=== PATIENT | male | born 1940 | race Two or more races ===

== ENCOUNTER 2017-01-15 14:04 | Inpatient (IN) | payer MEDICARE, OTHER ==
[~2017-01-15] VITALS: Ht 167.6 cm; Wt 104.2 kg
[~2017-01-15 14:04] MED LIST: MIDAZOLAM 1 MG/ML, 5ML ONE; PROPOFOL 100 ML IV ONE; SUCCINYLCHOLINE 20 MG/ML, 10ML ONE
[2017-01-15] MEDS ORDERED: ALBUTEROL/IPRATROPIUM 2.5MG/0.5MG, 3 ML ONE ×2 (14:53→16:29)
[2017-01-15] MEDS ORDERED: ALBUTEROL/IPRATROPIUM 2.5MG/0.5MG, 3 ML NPPB ONE (15:00)
[2017-01-15] MEDS ORDERED: ACETAMINOPHEN 500 MG TABLET PO ONE (15:00)
[2017-01-15] MEDS ORDERED: SODIUM CHLORIDE 0.9% 1,000ML IVBOLUS ONE (15:00)
[2017-01-15] MEDS ORDERED: methylPREDNISolone SOD SUCC 125 MG/2 ML IVPush ONE (15:00)
[2017-01-15] MEDS ORDERED: SODIUM CHLORIDE FLUSH 10ML SYR IVF ONE (15:00)
[2017-01-15] MEDS ORDERED: SIMV40TA3 PO (15:06)
[2017-01-15] MEDS ORDERED: METF500T4 PO (15:06)
[2017-01-15] MEDS ORDERED: TAMS0.4C2 PO (15:06)
[2017-01-15] MEDS ORDERED: OMEP-110 PO (15:06)
[2017-01-15] MEDS ORDERED: ACETAMINOPHEN 500 MG TABLET ONE (15:09)
[2017-01-15] MEDS ORDERED: methylPREDNISolone SOD SUCC 125 MG/2 ML ONE (15:09)
[2017-01-15 15:21] LABS: BASOPHILS # (AUTO) 0.02 x10^3/uL (0-0.1); BASOPHILS % (AUTO) 0 % (0-1); EOSINOPHILS % (AUTO) 0 % (1-7); LYMPHOCYTES # (AUTO) 0.69 x10^3/uL (1-3.4); LYMPHOCYTES % (AUTO) 7 % (22-44); MD NO; MEAN CORPUSCULAR HEMOGLOBIN 30.7 pg (27.5-34.5); MEAN CORPUSCULAR HGB CONC 32.6 g/dL (33.2-36.2); MEAN PLATELET VOLUME 7.3 fL (7.4-10.4); MONOCYTES # (AUTO) 1.25 x10^3/uL (0.2-0.8); MONOCYTES % (AUTO) 13 % (2-9); NEUTROPHILS # (AUTO) 7.76 x10^3/uL (1.8-6.8); NEUTROPHILS % (AUTO) 80 % (42-75); PLATELET COUNT 167 x10^3/uL (130-400)
[2017-01-15 15:29] LABS: ALANINE AMINOTRANSFERASE 24 U/L (12-78); ALBUMIN 3.1 g/dL (3.4-5.0); ANION GAP 5 mmol/L (5-15); CALCIUM 8.6 mg/dL (8.5-10.1); CHLORIDE 92 mmol/L (98-107)
[2017-01-15 15:32] LABS: ALKALINE PHOSPHATASE 87 U/L (45-117); BILIRUBIN,TOTAL 0.6 mg/dL (0.2-1.0); CREATININE 1.05 mg/dL (0.7-1.3); TOTAL PROTEIN 7.8 g/dL (6.4-8.2)
[2017-01-15 15:34] LABS: RAPID INFLUENZA A POSITIVE (Negative); RAPID INFLUENZA B Negative (Negative)
[2017-01-15] MEDS ORDERED: OSELTAMIVIR 75 MG CAPSULE PO ONE (16:00)
[2017-01-15] MEDS ORDERED: SODIUM CHLORIDE 0.9% 1,000 ML IV SCH (16:18)
[2017-01-15] MEDS ORDERED: POLYETHYLENE GLYCOL 17 GM PACKET PO PRN (16:30)
[2017-01-15] MEDS ORDERED: BISACODYL 10 MG SUPP PR PRN ×2 (16:30→20:30)
[2017-01-15] MEDS ORDERED: DOCUSATE 100 MG CAPSULE PO PRN (16:30)
[2017-01-15] MEDS ORDERED: LABETALOL 5MG/ML, 20ML IVPush PRN (16:30)
[2017-01-15] MEDS ORDERED: morphine SULFATE 10 MG/ML, 1ML IVPush PRN (16:30)
[2017-01-15] MEDS ORDERED: GLUCAGON 1 MG IM PRN (17:00)
[2017-01-15] MEDS ORDERED: DEXTROSE 4 GM TAB.CHEW PO PRN (17:00)
[2017-01-15] MEDS ORDERED: DEXTROSE 50%, 50ML SYRINGE IVPush PRN (17:00)
[2017-01-15 18:45] VITALS: BP 147/66
[2017-01-15] MEDS: methylPREDNISolone SOD SUCC 125 MG/2 ML IVPush SCH (19:12)
[2017-01-15] MEDS: SODIUM CHLORIDE FLUSH 10ML SYR IVF SCH (19:33)
[2017-01-15] MEDS ORDERED: PHARMACY MAY ADJ FOR RENAL FX MC SCH (20:30)
[2017-01-15] MEDS ORDERED: LACTULOSE 20 GM/30 ML UDC NG PRN (20:30)
[2017-01-15] MEDS ORDERED: SENNA/DOCUSATE TABLET NG PRN (20:30)
[2017-01-15] MEDS ORDERED: SENNOSIDES 8.8 MG/5 ML ORAL SOL NG PRN (20:30)
[2017-01-15] MEDS ORDERED: LIDOCAINE-MPF 1%, 2ML ENDO PRN (20:30)
[2017-01-15] MEDS ORDERED: OSELTAMIVIR 75 MG CAPSULE PO SCH (21:00)
[2017-01-15] MEDS ORDERED: SODIUM CHLORIDE 0.9%, 500ML IVBOLUS ONE (21:00)
[2017-01-15] MEDS ORDERED: CEFTRIAXONE PMX 2GM/50ML 50 ML IV SCH (21:00)
[2017-01-15 21:22] LABS: TROPONIN I < 0.015 ng/mL (0.000-0.045)
[2017-01-15] MEDS: CEFTRIAXONE 2 GM in DEXTROSE 5% 50 ML IV SCH (21:55)
[2017-01-15] MEDS: FAMOTIDINE 20 MG/2 ML IV SCH (21:57)
[2017-01-15] MEDS: AZITHROMYCIN 500 MG in SODIUM CHLORIDE 0.9% 250 ML IV SCH (21:58)
[2017-01-15] MEDS: SIMVASTATIN 40 MG TABLET PO SCH ×2 (21:58→22:05)
[2017-01-15] MEDS: ENOXAPARIN 40 MG/0.4 ML SQ SCH (21:58)
[2017-01-15] MEDS: INSULIN ASPART 100 UNITS/ML, PEN SQ-INSULIN SCH (22:17)
[2017-01-15] MEDS: PROPOFOL 100 ML IV PRN (22:54)
[2017-01-15] MEDS: ALBUTEROL/IPRATROPIUM 2.5MG/0.5MG, 3 ML INLINE SCH (23:20)
[2017-01-16] MEDS: methylPREDNISolone SOD SUCC 125 MG/2 ML IVPush SCH ×5 (00:05→22:35)
[2017-01-16] MEDS: PROPOFOL 100 ML IV PRN ×5 (01:25→22:36)
[2017-01-16 02:49] LABS: MEAN CORPUSCULAR HEMOGLOBIN 30.9 pg (27.5-34.5); MEAN CORPUSCULAR HGB CONC 33.3 g/dL (33.2-36.2); MEAN CORPUSCULAR VOLUME 92.8 fL (81-97); MEAN PLATELET VOLUME 7.2 fL (7.4-10.4); PLATELET COUNT 175 x10^3/uL (130-400); RED BLOOD COUNT 5.56 x10^6/uL (4.38-5.82); RED CELL DISTRIBUTION WIDTH 14.1 % (9.4-14.8)
[2017-01-16] MEDS: ALBUTEROL/IPRATROPIUM 2.5MG/0.5MG, 3 ML INLINE SCH ×7 (02:50→22:45)
[2017-01-16 03:02] LABS: ALANINE AMINOTRANSFERASE 26 U/L (12-78); ALBUMIN 2.7 g/dL (3.4-5.0); ANION GAP 10 mmol/L (5-15); CALCIUM 8.3 mg/dL (8.5-10.1); CHLORIDE 101 mmol/L (98-107)
[2017-01-16 03:05] LABS: ALKALINE PHOSPHATASE 79 U/L (45-117); BILIRUBIN,TOTAL 0.5 mg/dL (0.2-1.0); CREATININE 0.76 mg/dL (0.7-1.3); TOTAL PROTEIN 7.3 g/dL (6.4-8.2); TROPONIN I < 0.015 ng/mL (0.000-0.045)
[2017-01-16 03:16] LABS: BASOPHILS % (AUTO) 0 % (0-1); EOSINOPHILS % (AUTO) 0 % (1-7); LYMPHOCYTES # (AUTO) 0.69 x10^3/uL (1-3.4); LYMPHOCYTES % (AUTO) 7 % (22-44); MD SCAN; MONOCYTES # (AUTO) 0.38 x10^3/uL (0.2-0.8); MONOCYTES % (AUTO) 4 % (2-9); NEUTROPHILS # (AUTO) 8.46 x10^3/uL (1.8-6.8); NEUTROPHILS % (AUTO) 89 % (42-75)
[2017-01-16] MEDS: OSELTAMIVIR 75 MG CAPSULE PO SCH ×3 (04:56→21:10)
[2017-01-16 05:34] VITALS: BP 154/77
[2017-01-16] MEDS: INSULIN ASPART 100 UNITS/ML, PEN SQ-INSULIN SCH ×4 (07:00→21:23)
[2017-01-16] MEDS ORDERED: MAGNESIUM SULFATE PMX 4GM/100M 100 ML IV ONE (08:00)
[2017-01-16] MEDS: TAMSULOSIN 0.4 MG CAP.ER.24H PO SCH (09:37)
[2017-01-16] MEDS: SODIUM CHLORIDE FLUSH 10ML SYR IVF SCH ×2 (09:38→21:11)
[2017-01-16] MEDS: FAMOTIDINE 20 MG/2 ML IV SCH ×2 (09:38→21:10)
[2017-01-16] MEDS: CEFTRIAXONE 2 GM in DEXTROSE 5% 50 ML IV SCH (21:10)
[2017-01-16] MEDS: ENOXAPARIN 40 MG/0.4 ML SQ SCH (21:10)
[2017-01-16] MEDS: AZITHROMYCIN 500 MG in SODIUM CHLORIDE 0.9% 250 ML IV SCH (21:10)
[2017-01-16] MEDS: SIMVASTATIN 40 MG TABLET PO SCH (21:10)
[2017-01-17] MEDS: PROPOFOL 100 ML IV PRN ×7 (01:16→21:06)
[2017-01-17] MEDS: ALBUTEROL/IPRATROPIUM 2.5MG/0.5MG, 3 ML INLINE SCH ×6 (02:45→22:40)
[2017-01-17 04:00] VITALS: BP 113/55
[2017-01-17 04:14] LABS: MEAN CORPUSCULAR HEMOGLOBIN 30.6 pg (27.5-34.5); MEAN CORPUSCULAR HGB CONC 32.8 g/dL (33.2-36.2); MEAN CORPUSCULAR VOLUME 93.4 fL (81-97); MEAN PLATELET VOLUME 7.6 fL (7.4-10.4); PLATELET COUNT 188 x10^3/uL (130-400); RED BLOOD COUNT 5.39 x10^6/uL (4.38-5.82); RED CELL DISTRIBUTION WIDTH 14.1 % (9.4-14.8)
[2017-01-17 04:23] LABS: ANION GAP 6 mmol/L (5-15); CHLORIDE 102 mmol/L (98-107); CREATININE 0.79 mg/dL (0.7-1.3)
[2017-01-17 04:27] LABS: MD YES
[2017-01-17 04:29] LABS: <PLATELET ESTIMATE> ADEQUATE; <PLT MORPHOLOGY> NORMAL PLT MORPH; <RBC MORPHOLOGY> NORMAL; BAND#(MANUAL) 2.87 x10^3/uL; BANDS%(MANUAL) 15 % (0-7); LYMPH#(MANUAL) 0.96 x10^3/uL (1-3.4); LYMPHS% (MANUAL) 5 % (22-44); MONOS#(MANUAL) 0.38 x10^3/uL (0.3-2.7); MONOS% (MANUAL) 2 % (2-9); SEGS% (MANUAL) 78 % (42-75)
[2017-01-17] MEDS: methylPREDNISolone SOD SUCC 125 MG/2 ML IVPush SCH ×4 (04:51→22:21)
[2017-01-17] MEDS: INSULIN ASPART 100 UNITS/ML, PEN SQ-INSULIN SCH ×4 (04:53→21:05)
[2017-01-17] MEDS: SODIUM CHLORIDE FLUSH 10ML SYR IVF SCH ×2 (08:13→20:50)
[2017-01-17] MEDS: OSELTAMIVIR 75 MG CAPSULE PO SCH ×2 (08:13→20:50)
[2017-01-17] MEDS: FAMOTIDINE 20 MG/2 ML IV SCH ×2 (08:13→20:50)
[2017-01-17] MEDS ORDERED: FUROSEMIDE 40 MG/4 ML ONE (10:48)
[2017-01-17] MEDS: RISPERIDONE 1 MG/ML ORAL SOLN NG SCH ×2 (10:56→20:50)
[2017-01-17] MEDS: TAMSULOSIN 0.4 MG CAP.ER.24H PO SCH (10:56)
[2017-01-17] MEDS ORDERED: FUROSEMIDE 40 MG/4 ML IV ONE (11:00)
[2017-01-17] MEDS: SIMVASTATIN 40 MG TABLET PO SCH (20:50)
[2017-01-17] MEDS: ENOXAPARIN 40 MG/0.4 ML SQ SCH (20:51)
[2017-01-17] MEDS: CEFTRIAXONE 2 GM in DEXTROSE 5% 50 ML IV SCH (20:51)
[2017-01-17] MEDS: AZITHROMYCIN 500 MG in SODIUM CHLORIDE 0.9% 250 ML IV SCH (20:51)
[2017-01-18] MEDS: ALBUTEROL/IPRATROPIUM 2.5MG/0.5MG, 3 ML INLINE SCH ×6 (02:35→23:00)
[2017-01-18] MEDS: PROPOFOL 100 ML IV PRN ×7 (02:53→23:16)
[2017-01-18 04:00] VITALS: BP 104/50
[2017-01-18] MEDS: methylPREDNISolone SOD SUCC 125 MG/2 ML IVPush SCH ×4 (04:16→22:38)
[2017-01-18 04:56] LABS: BASOPHILS # (AUTO) 0.01 x10^3/uL (0-0.1); BASOPHILS % (AUTO) 0 % (0-1); EOSINOPHILS % (AUTO) 0 % (1-7); LYMPHOCYTES # (AUTO) 0.54 x10^3/uL (1-3.4); LYMPHOCYTES % (AUTO) 3 % (22-44); MD NO; MEAN CORPUSCULAR HEMOGLOBIN 30.9 pg (27.5-34.5); MEAN CORPUSCULAR HGB CONC 32.9 g/dL (33.2-36.2); MEAN CORPUSCULAR VOLUME 93.9 fL (81-97); MEAN PLATELET VOLUME 7.7 fL (7.4-10.4); MONOCYTES # (AUTO) 0.57 x10^3/uL (0.2-0.8); MONOCYTES % (AUTO) 3 % (2-9); NEUTROPHILS # (AUTO) 16.79 x10^3/uL (1.8-6.8); NEUTROPHILS % (AUTO) 94 % (42-75); PLATELET COUNT 197 x10^3/uL (130-400); RED BLOOD COUNT 5.48 x10^6/uL (4.38-5.82); RED CELL DISTRIBUTION WIDTH 14.1 % (9.4-14.8)
[2017-01-18 05:03] LABS: ANION GAP 7 mmol/L (5-15); CALCIUM 8.4 mg/dL (8.5-10.1); CHLORIDE 102 mmol/L (98-107); CREATININE 0.83 mg/dL (0.7-1.3)
[2017-01-18 05:04] LABS: TRIGLYCERIDES 117 mg/dL (50-200)
[2017-01-18] MEDS: INSULIN ASPART 100 UNITS/ML, PEN SQ-INSULIN SCH ×3 (05:57→17:13)
[2017-01-18] MEDS ORDERED: FUROSEMIDE 40 MG/4 ML IV ONE (09:00)
[2017-01-18] MEDS: RISPERIDONE 1 MG/ML ORAL SOLN NG SCH ×2 (09:22→21:21)
[2017-01-18] MEDS: SODIUM CHLORIDE FLUSH 10ML SYR IVF SCH ×2 (09:22→21:21)
[2017-01-18] MEDS: FAMOTIDINE 20 MG/2 ML IV SCH ×2 (09:22→21:20)
[2017-01-18] MEDS: OSELTAMIVIR 75 MG CAPSULE PO SCH ×2 (09:22→21:22)
[2017-01-18] MEDS: TAMSULOSIN 0.4 MG CAP.ER.24H PO SCH (09:22)
[2017-01-18] MEDS: SIMVASTATIN 40 MG TABLET PO SCH (21:21)
[2017-01-18] MEDS: ENOXAPARIN 40 MG/0.4 ML SQ SCH (21:21)
[2017-01-18] MEDS: CEFTRIAXONE PMX 1GM/50ML 50 ML IV SCH (21:21)
[2017-01-19] MEDS: INSULIN ASPART 100 UNITS/ML, PEN SQ-INSULIN SCH ×4 (00:12→17:17)
[2017-01-19] MEDS: ALBUTEROL/IPRATROPIUM 2.5MG/0.5MG, 3 ML INLINE SCH ×6 (02:15→22:28)
[2017-01-19] MEDS: PROPOFOL 100 ML IV PRN ×7 (02:24→22:46)
[2017-01-19 04:00] VITALS: BP 118/57
[2017-01-19 04:31] LABS: FIO2 50 %
[2017-01-19 04:33] LABS: BASOPHILS # (AUTO) 0.08 x10^3/uL (0-0.1); BASOPHILS % (AUTO) 1 % (0-1); EOSINOPHILS % (AUTO) 0 % (1-7); LYMPHOCYTES # (AUTO) 0.53 x10^3/uL (1-3.4); LYMPHOCYTES % (AUTO) 4 % (22-44); MD NO; MEAN CORPUSCULAR HEMOGLOBIN 30.9 pg (27.5-34.5); MEAN CORPUSCULAR HGB CONC 32.8 g/dL (33.2-36.2); MEAN CORPUSCULAR VOLUME 94.2 fL (81-97); MEAN PLATELET VOLUME 7.6 fL (7.4-10.4); MONOCYTES # (AUTO) 0.84 x10^3/uL (0.2-0.8); MONOCYTES % (AUTO) 6 % (2-9); NEUTROPHILS # (AUTO) 11.64 x10^3/uL (1.8-6.8); NEUTROPHILS % (AUTO) 89 % (42-75); PLATELET COUNT 193 x10^3/uL (130-400); RED BLOOD COUNT 5.34 x10^6/uL (4.38-5.82); RED CELL DISTRIBUTION WIDTH 14.1 % (9.4-14.8)
[2017-01-19] MEDS: methylPREDNISolone SOD SUCC 125 MG/2 ML IVPush SCH ×4 (04:35→22:46)
[2017-01-19 04:43] LABS: ANION GAP 9 mmol/L (5-15); CALCIUM 8.6 mg/dL (8.5-10.1); CHLORIDE 100 mmol/L (98-107); CREATININE 0.91 mg/dL (0.7-1.3)
[2017-01-19] MEDS: SODIUM CHLORIDE FLUSH 10ML SYR IVF SCH ×2 (09:19→21:15)
[2017-01-19] MEDS: OSELTAMIVIR 75 MG CAPSULE PO SCH ×2 (09:19→21:15)
[2017-01-19] MEDS: RISPERIDONE 1 MG/ML ORAL SOLN NG SCH ×2 (09:19→21:15)
[2017-01-19] MEDS: TAMSULOSIN 0.4 MG CAP.ER.24H PO SCH (09:19)
[2017-01-19] MEDS: FAMOTIDINE 20 MG/2 ML IV SCH ×2 (09:19→21:15)
[2017-01-19] MEDS: CEFTRIAXONE PMX 1GM/50ML 50 ML IV SCH (21:16)
[2017-01-19] MEDS: ENOXAPARIN 40 MG/0.4 ML SQ SCH (21:16)
[2017-01-19] MEDS: SIMVASTATIN 40 MG TABLET PO SCH (21:16)
[2017-01-20] MEDS: INSULIN ASPART 100 UNITS/ML, PEN SQ-INSULIN SCH ×4 (00:34→17:12)
[2017-01-20] MEDS: PROPOFOL 100 ML IV PRN ×6 (00:55→20:44)
[2017-01-20] MEDS: ALBUTEROL/IPRATROPIUM 2.5MG/0.5MG, 3 ML INLINE SCH ×6 (02:40→22:20)
[2017-01-20] MEDS: methylPREDNISolone SOD SUCC 125 MG/2 ML IVPush SCH ×4 (04:13→23:13)
[2017-01-20 04:48] LABS: BASOPHILS # (AUTO) 0.02 x10^3/uL (0-0.1); BASOPHILS % (AUTO) 0 % (0-1); EOSINOPHILS % (AUTO) 0 % (1-7); LYMPHOCYTES # (AUTO) 0.78 x10^3/uL (1-3.4); LYMPHOCYTES % (AUTO) 5 % (22-44); MD NO; MEAN CORPUSCULAR HEMOGLOBIN 30.5 pg (27.5-34.5); MEAN CORPUSCULAR HGB CONC 31.8 g/dL (33.2-36.2); MEAN CORPUSCULAR VOLUME 95.8 fL (81-97); MEAN PLATELET VOLUME 7.5 fL (7.4-10.4); MONOCYTES # (AUTO) 1.05 x10^3/uL (0.2-0.8); MONOCYTES % (AUTO) 7 % (2-9); NEUTROPHILS # (AUTO) 13.72 x10^3/uL (1.8-6.8); NEUTROPHILS % (AUTO) 88 % (42-75); PLATELET COUNT 211 x10^3/uL (130-400); RED BLOOD COUNT 5.57 x10^6/uL (4.38-5.82)
[2017-01-20 05:09] LABS: CHLORIDE 100 mmol/L (98-107)
[2017-01-20 05:15] LABS: ANION GAP 8 mmol/L (5-15); CALCIUM 8.8 mg/dL (8.5-10.1); CREATININE 0.86 mg/dL (0.7-1.3)
[2017-01-20] MEDS: SODIUM CHLORIDE FLUSH 10ML SYR IVF SCH ×2 (08:31→20:45)
[2017-01-20] MEDS: RISPERIDONE 1 MG/ML ORAL SOLN NG SCH ×2 (08:31→20:46)
[2017-01-20] MEDS: FAMOTIDINE 20 MG/2 ML IV SCH ×2 (08:31→20:45)
[2017-01-20] MEDS: OSELTAMIVIR 75 MG CAPSULE PO SCH ×2 (08:32→20:46)
[2017-01-20] MEDS: TAMSULOSIN 0.4 MG CAP.ER.24H PO SCH (08:32)
[2017-01-20] MEDS ORDERED: FUROSEMIDE 40 MG/4 ML IV ONE (10:00)
[2017-01-20] MEDS: FUROSEMIDE 40 MG/4 ML IV SCH (17:12)
[2017-01-20] MEDS: CEFTRIAXONE PMX 1GM/50ML 50 ML IV SCH (20:45)
[2017-01-20] MEDS: SIMVASTATIN 40 MG TABLET PO SCH (20:46)
[2017-01-20] MEDS: ENOXAPARIN 40 MG/0.4 ML SQ SCH (20:46)
[2017-01-21] MEDS: INSULIN ASPART 100 UNITS/ML, PEN SQ-INSULIN SCH ×5 (00:18→22:50)
[2017-01-21] MEDS: PROPOFOL 100 ML IV PRN ×2 (00:47→04:15)
[2017-01-21] MEDS: ALBUTEROL/IPRATROPIUM 2.5MG/0.5MG, 3 ML INLINE SCH ×6 (02:10→22:20)
[2017-01-21] MEDS: methylPREDNISolone SOD SUCC 125 MG/2 ML IVPush SCH (04:43)
[2017-01-21 05:07] LABS: MEAN CORPUSCULAR HEMOGLOBIN 30.5 pg (27.5-34.5); MEAN CORPUSCULAR HGB CONC 32.6 g/dL (33.2-36.2); MEAN CORPUSCULAR VOLUME 93.6 fL (81-97); MEAN PLATELET VOLUME 7.7 fL (7.4-10.4); PLATELET COUNT 196 x10^3/uL (130-400); RED BLOOD COUNT 5.72 x10^6/uL (4.38-5.82); RED CELL DISTRIBUTION WIDTH 14.2 % (9.4-14.8)
[2017-01-21 05:13] LABS: ANION GAP 7 mmol/L (5-15); CALCIUM 8.9 mg/dL (8.5-10.1); CHLORIDE 95 mmol/L (98-107)
[2017-01-21 05:15] LABS: CREATININE 0.96 mg/dL (0.7-1.3); TRIGLYCERIDES 139 mg/dL (50-200)
[2017-01-21 05:56] LABS: BASOPHILS # (AUTO) 0.02 x10^3/uL (0-0.1); BASOPHILS % (AUTO) 0 % (0-1); EOSINOPHILS % (AUTO) 0 % (1-7); LYMPHOCYTES % (AUTO) 4 % (22-44); MD SCAN; MONOCYTES # (AUTO) 1.08 x10^3/uL (0.2-0.8); MONOCYTES % (AUTO) 5 % (2-9); NEUTROPHILS # (AUTO) 18.53 x10^3/uL (1.8-6.8); NEUTROPHILS % (AUTO) 90 % (42-75)
[2017-01-21] MEDS: FAMOTIDINE 20 MG/2 ML IV SCH ×2 (07:48→19:51)
[2017-01-21] MEDS: FUROSEMIDE 40 MG/4 ML IV SCH ×2 (07:48→17:38)
[2017-01-21] MEDS: SODIUM CHLORIDE FLUSH 10ML SYR IVF SCH ×2 (09:15→19:51)
[2017-01-21] MEDS: TAMSULOSIN 0.4 MG CAP.ER.24H PO SCH (09:15)
[2017-01-21] MEDS: RISPERIDONE 1 MG/ML ORAL SOLN NG SCH ×2 (09:15→21:08)
[2017-01-21] MEDS: OSELTAMIVIR 75 MG CAPSULE PO SCH ×2 (09:15→21:08)
[2017-01-21] MEDS: FENTANYL PF 100 MCG/2ML IVPush PRN (19:51)
[2017-01-21] MEDS: CEFTRIAXONE PMX 1GM/50ML 50 ML IV SCH (21:06)
[2017-01-21] MEDS: SIMVASTATIN 40 MG TABLET PO SCH (21:08)
[2017-01-21] MEDS: ENOXAPARIN 40 MG/0.4 ML SQ SCH (21:08)
[2017-01-22] MEDS: ALBUTEROL/IPRATROPIUM 2.5MG/0.5MG, 3 ML INLINE SCH ×4 (02:14→20:20)
[2017-01-22 03:39] LABS: MEAN PLATELET VOLUME 8.6 fL (7.4-10.4); PLATELET COUNT 222 x10^3/uL (130-400); RED BLOOD COUNT 5.58 x10^6/uL (4.38-5.82); RED CELL DISTRIBUTION WIDTH 14.4 % (9.4-14.8)
[2017-01-22 03:55] LABS: BASOPHILS # (AUTO) 0.11 x10^3/uL (0-0.1); BASOPHILS % (AUTO) 1 % (0-1); EOSINOPHILS # (AUTO) 0.04 x10^3/uL (0-0.4); EOSINOPHILS % (AUTO) 0 % (1-7); LYMPHOCYTES # (AUTO) 2.33 x10^3/uL (1-3.4); LYMPHOCYTES % (AUTO) 11 % (22-44); MD SCAN; MONOCYTES # (AUTO) 2.18 x10^3/uL (0.2-0.8); MONOCYTES % (AUTO) 11 % (2-9); NEUTROPHILS # (AUTO) 16.19 x10^3/uL (1.8-6.8); NEUTROPHILS % (AUTO) 78 % (42-75)
[2017-01-22] MEDS: FENTANYL PF 100 MCG/2ML IVPush PRN (04:33)
[2017-01-22 04:37] LABS: ANION GAP 7 mmol/L (5-15); CALCIUM 9.2 mg/dL (8.5-10.1); CHLORIDE 95 mmol/L (98-107); CREATININE 1.02 mg/dL (0.7-1.3)
[2017-01-22] MEDS: INSULIN ASPART 100 UNITS/ML, PEN SQ-INSULIN SCH ×4 (05:59→23:00)
[2017-01-22] MEDS: FUROSEMIDE 40 MG/4 ML IV SCH ×2 (07:30→11:56)
[2017-01-22] MEDS: FAMOTIDINE 20 MG/2 ML IV SCH ×2 (09:47→21:49)
[2017-01-22] MEDS: SODIUM CHLORIDE FLUSH 10ML SYR IVF SCH ×2 (09:47→21:09)
[2017-01-22] MEDS: TAMSULOSIN 0.4 MG CAP.ER.24H PO SCH (09:47)
[2017-01-22] MEDS: RISPERIDONE 1 MG/ML ORAL SOLN NG SCH ×2 (09:47→21:15)
[2017-01-22] MEDS ORDERED: ALBUTEROL/IPRATROPIUM 2.5MG/0.5MG, 3 ML NPPB PRN (14:00)
[2017-01-22] MEDS: NYSTATIN 500,000 UNITS/5 ML UDC PO SCH (21:05)
[2017-01-22] MEDS: CEFTRIAXONE PMX 1GM/50ML 50 ML IV SCH (21:06)
[2017-01-22] MEDS: ENOXAPARIN 40 MG/0.4 ML SQ SCH (21:08)
[2017-01-22] MEDS: SIMVASTATIN 40 MG TABLET PO SCH (21:09)
[2017-01-22] MEDS: CIPROFLOXACIN OPHTH SOLN 0.3%, 5ML EACHEYE SCH (21:49)
[2017-01-23 03:40] LABS: MEAN CORPUSCULAR HEMOGLOBIN 30.6 pg (27.5-34.5); MEAN CORPUSCULAR VOLUME 95.6 fL (81-97); MEAN PLATELET VOLUME 7.9 fL (7.4-10.4); PLATELET COUNT 179 x10^3/uL (130-400); RED BLOOD COUNT 5.67 x10^6/uL (4.38-5.82)
[2017-01-23 03:45] LABS: ANION GAP 4 mmol/L (5-15); CALCIUM 8.8 mg/dL (8.5-10.1); CHLORIDE 100 mmol/L (98-107); CREATININE 0.65 mg/dL (0.7-1.3)
[2017-01-23 04:29] LABS: BASOPHILS # (AUTO) 0.04 x10^3/uL (0-0.1); BASOPHILS % (AUTO) 0 % (0-1); EOSINOPHILS # (AUTO) 0.23 x10^3/uL (0-0.4); EOSINOPHILS % (AUTO) 1 % (1-7); LYMPHOCYTES # (AUTO) 1.71 x10^3/uL (1-3.4); LYMPHOCYTES % (AUTO) 10 % (22-44); MD SCAN; MONOCYTES # (AUTO) 1.76 x10^3/uL (0.2-0.8); MONOCYTES % (AUTO) 10 % (2-9); NEUTROPHILS # (AUTO) 13.76 x10^3/uL (1.8-6.8); NEUTROPHILS % (AUTO) 79 % (42-75)
[2017-01-23] MEDS: NYSTATIN 500,000 UNITS/5 ML UDC PO SCH ×4 (06:03→22:27)
[2017-01-23] MEDS: INSULIN ASPART 100 UNITS/ML, PEN SQ-INSULIN SCH ×4 (06:04→22:38)
[2017-01-23] MEDS: ALBUTEROL/IPRATROPIUM 2.5MG/0.5MG, 3 ML INLINE SCH ×4 (07:15→20:41)
[2017-01-23] MEDS: SODIUM CHLORIDE FLUSH 10ML SYR IVF SCH ×2 (08:11→22:27)
[2017-01-23] MEDS: FUROSEMIDE 40 MG/4 ML IV SCH ×2 (08:11→16:43)
[2017-01-23] MEDS: FAMOTIDINE 20 MG/2 ML IV SCH ×2 (08:11→22:25)
[2017-01-23] MEDS: CIPROFLOXACIN OPHTH SOLN 0.3%, 5ML EACHEYE SCH ×2 (08:12→23:32)
[2017-01-23] MEDS: TAMSULOSIN 0.4 MG CAP.ER.24H PO SCH (08:12)
[2017-01-23 09:42] VITALS: BP 154/76
[2017-01-23 13:32] VITALS: BP 132/68
[2017-01-23 14:24] VITALS: BP 154/85
[2017-01-23 19:10] VITALS: BP 119/78
[2017-01-23] MEDS: CEFTRIAXONE PMX 1GM/50ML 50 ML IV SCH (22:24)
[2017-01-23] MEDS: ENOXAPARIN 40 MG/0.4 ML SQ SCH (22:27)
[2017-01-23] MEDS: HYDROcodone/APAP 5/325 TABLET PO PRN (22:27)
[2017-01-23] MEDS: SIMVASTATIN 40 MG TABLET PO SCH (22:27)
[2017-01-24] VITALS: BP_SYST 110; BP_SYST 119; BP_DIAS 73
[2017-01-24 04:08] VITALS: BP 114/69
[2017-01-24 05:32] LABS: MEAN CORPUSCULAR HEMOGLOBIN 30.5 pg (27.5-34.5); MEAN CORPUSCULAR HGB CONC 31.7 g/dL (33.2-36.2); MEAN CORPUSCULAR VOLUME 96.1 fL (81-97); MEAN PLATELET VOLUME 7.6 fL (7.4-10.4); PLATELET COUNT 185 x10^3/uL (130-400); RED CELL DISTRIBUTION WIDTH 14.2 % (9.4-14.8)
[2017-01-24 05:41] LABS: ANION GAP 2 mmol/L (5-15); CALCIUM 9.5 mg/dL (8.5-10.1); CHLORIDE 98 mmol/L (98-107); CREATININE 0.96 mg/dL (0.7-1.3); TRIGLYCERIDES 142 mg/dL (50-200)
[2017-01-24] MEDS: NYSTATIN 500,000 UNITS/5 ML UDC PO SCH ×4 (06:14→20:37)
[2017-01-24 06:44] LABS: BASOPHILS # (AUTO) 0.09 x10^3/uL (0-0.1); BASOPHILS % (AUTO) 1 % (0-1); EOSINOPHILS # (AUTO) 0.14 x10^3/uL (0-0.4); EOSINOPHILS % (AUTO) 1 % (1-7); LYMPHOCYTES # (AUTO) 1.22 x10^3/uL (1-3.4); LYMPHOCYTES % (AUTO) 6 % (22-44); MD SCAN; MONOCYTES # (AUTO) 1.42 x10^3/uL (0.2-0.8); MONOCYTES % (AUTO) 8 % (2-9); NEUTROPHILS # (AUTO) 16.17 x10^3/uL (1.8-6.8); NEUTROPHILS % (AUTO) 85 % (42-75)
[2017-01-24] MEDS: ALBUTEROL/IPRATROPIUM 2.5MG/0.5MG, 3 ML INLINE SCH ×4 (07:00→20:15)
[2017-01-24] MEDS: FUROSEMIDE 40 MG/4 ML IV SCH ×2 (07:50→16:57)
[2017-01-24] MEDS: FAMOTIDINE 20 MG/2 ML IV SCH ×2 (07:51→20:37)
[2017-01-24] MEDS: INSULIN ASPART 100 UNITS/ML, PEN SQ-INSULIN SCH ×4 (07:51→20:52)
[2017-01-24 07:56] VITALS: BP 146/89
[2017-01-24 08:57] LABS: CLOSTRIDIUM DIFFICILE ANTIGEN NEGATIVE; CLOSTRIDIUM DIFFICILE TOXIN NEGATIVE (Negative)
[2017-01-24] MEDS: TAMSULOSIN 0.4 MG CAP.ER.24H PO SCH (10:13)
[2017-01-24] MEDS: CIPROFLOXACIN OPHTH SOLN 0.3%, 5ML EACHEYE SCH ×2 (10:13→20:38)
[2017-01-24] MEDS: SODIUM CHLORIDE FLUSH 10ML SYR IVF SCH ×2 (10:14→20:38)
[2017-01-24 12:19] VITALS: BP 124/80
[2017-01-24 20:09] VITALS: BP 117/79
[2017-01-24] MEDS: SIMVASTATIN 40 MG TABLET PO SCH (20:38)
[2017-01-24] MEDS: ENOXAPARIN 40 MG/0.4 ML SQ SCH (20:38)
[2017-01-24] MEDS: CEFTRIAXONE PMX 1GM/50ML 50 ML IV SCH (20:51)
[2017-01-25 01:17] VITALS: BP 121/78
[2017-01-25 04:16] VITALS: BP 126/72
[2017-01-25] MEDS: NYSTATIN 500,000 UNITS/5 ML UDC PO SCH ×4 (05:46→22:04)
[2017-01-25 05:52] LABS: MEAN CORPUSCULAR HEMOGLOBIN 30.6 pg (27.5-34.5); MEAN CORPUSCULAR VOLUME 95.6 fL (81-97); MEAN PLATELET VOLUME 8.3 fL (7.4-10.4); PLATELET COUNT 180 x10^3/uL (130-400); RED BLOOD COUNT 6.25 x10^6/uL (4.38-5.82); RED CELL DISTRIBUTION WIDTH 14.8 % (9.4-14.8)
[2017-01-25 06:05] LABS: CHLORIDE 97 mmol/L (98-107)
[2017-01-25 06:14] LABS: ANION GAP 5 mmol/L (5-15); CALCIUM 10.2 mg/dL (8.5-10.1); CREATININE 1.23 mg/dL (0.7-1.3)
[2017-01-25 06:23] LABS: BASOPHILS # (AUTO) 0.08 x10^3/uL (0-0.1); BASOPHILS % (AUTO) 0 % (0-1); EOSINOPHILS # (AUTO) 0.25 x10^3/uL (0-0.4); EOSINOPHILS % (AUTO) 1 % (1-7); LYMPHOCYTES % (AUTO) 5 % (22-44); MD SCAN; MONOCYTES # (AUTO) 1.43 x10^3/uL (0.2-0.8); MONOCYTES % (AUTO) 8 % (2-9); NEUTROPHILS # (AUTO) 16.41 x10^3/uL (1.8-6.8); NEUTROPHILS % (AUTO) 86 % (42-75)
[2017-01-25 07:22] VITALS: BP 119/81
[2017-01-25] MEDS: ALBUTEROL/IPRATROPIUM 2.5MG/0.5MG, 3 ML INLINE SCH ×4 (07:38→20:00)
[2017-01-25] MEDS: FAMOTIDINE 20 MG/2 ML IV SCH (08:25)
[2017-01-25] MEDS: FUROSEMIDE 40 MG/4 ML IV SCH ×2 (08:25→17:01)
[2017-01-25] MEDS: INSULIN ASPART 100 UNITS/ML, PEN SQ-INSULIN SCH ×4 (08:25→22:05)
[2017-01-25] MEDS: CIPROFLOXACIN OPHTH SOLN 0.3%, 5ML EACHEYE SCH ×2 (09:45→22:04)
[2017-01-25] MEDS: SODIUM CHLORIDE FLUSH 10ML SYR IVF SCH ×2 (09:45→22:04)
[2017-01-25] MEDS: TAMSULOSIN 0.4 MG CAP.ER.24H PO SCH (09:45)
[2017-01-25 12:40] VITALS: BP 114/76
[2017-01-25 20:06] VITALS: BP 144/87
[2017-01-25] MEDS: CEFTRIAXONE PMX 1GM/50ML 50 ML IV SCH (22:04)
[2017-01-25] MEDS: ENOXAPARIN 40 MG/0.4 ML SQ SCH (22:05)
[2017-01-25] MEDS: FAMOTIDINE 20 MG TABLET PO SCH (22:05)
[2017-01-25] MEDS: SIMVASTATIN 40 MG TABLET PO SCH (22:05)
[2017-01-25] MEDS: HYDROcodone/APAP 5/325 TABLET PO PRN (22:07)
[2017-01-26 01:59] VITALS: BP 120/70
[2017-01-26 05:05] VITALS: BP 125/75
[2017-01-26 06:00] LABS: MEAN CORPUSCULAR HEMOGLOBIN 30.3 pg (27.5-34.5); MEAN CORPUSCULAR HGB CONC 31.7 g/dL (33.2-36.2); MEAN CORPUSCULAR VOLUME 95.9 fL (81-97); MEAN PLATELET VOLUME 8.4 fL (7.4-10.4); PLATELET COUNT 161 x10^3/uL (130-400); RED BLOOD COUNT 6.08 x10^6/uL (4.38-5.82); RED CELL DISTRIBUTION WIDTH 14.4 % (9.4-14.8)
[2017-01-26 06:11] LABS: CALCIUM 9.6 mg/dL (8.5-10.1); CHLORIDE 94 mmol/L (98-107); CREATININE 1.63 mg/dL (0.7-1.3)
[2017-01-26 06:26] LABS: BASOPHILS # (AUTO) 0.01 x10^3/uL (0-0.1); BASOPHILS % (AUTO) 0 % (0-1); EOSINOPHILS # (AUTO) 0.43 x10^3/uL (0-0.4); EOSINOPHILS % (AUTO) 2 % (1-7); LYMPHOCYTES % (AUTO) 6 % (22-44); MD SCAN; MONOCYTES # (AUTO) 2.04 x10^3/uL (0.2-0.8); MONOCYTES % (AUTO) 10 % (2-9); NEUTROPHILS # (AUTO) 16.09 x10^3/uL (1.8-6.8); NEUTROPHILS % (AUTO) 82 % (42-75)
[2017-01-26 06:47] LABS: ANION GAP 9 mmol/L (5-15)
[2017-01-26 06:50] VITALS: BP 147/82
[2017-01-26] MEDS: ALBUTEROL/IPRATROPIUM 2.5MG/0.5MG, 3 ML INLINE SCH ×4 (07:00→21:16)
[2017-01-26] MEDS: INSULIN ASPART 100 UNITS/ML, PEN SQ-INSULIN SCH ×4 (07:20→22:22)
[2017-01-26] MEDS: NYSTATIN 500,000 UNITS/5 ML UDC PO SCH ×4 (07:20→20:38)
[2017-01-26] MEDS: FUROSEMIDE 40 MG/4 ML IV SCH ×2 (09:01→18:02)
[2017-01-26] MEDS: SODIUM CHLORIDE FLUSH 10ML SYR IVF SCH ×2 (09:01→20:38)
[2017-01-26] MEDS: CIPROFLOXACIN OPHTH SOLN 0.3%, 5ML EACHEYE SCH ×2 (09:01→20:38)
[2017-01-26] MEDS: TAMSULOSIN 0.4 MG CAP.ER.24H PO SCH (09:01)
[2017-01-26] MEDS: FAMOTIDINE 20 MG TABLET PO SCH ×2 (09:02→20:39)
[2017-01-26] MEDS: ACETAMINOPHEN 325 MG TABLET PO PRN (12:58)
[2017-01-26 13:10] VITALS: BP_SYST 106; BP_SYST 115; BP_DIAS 61; BP_DIAS 73
[2017-01-26 18:36] VITALS: BP 114/79
[2017-01-26] MEDS: CEFTRIAXONE PMX 1GM/50ML 50 ML IV SCH (20:38)
[2017-01-26] MEDS: HYDROcodone/APAP 5/325 TABLET PO PRN (20:39)
[2017-01-26] MEDS: SIMVASTATIN 40 MG TABLET PO SCH (20:39)
[2017-01-26] MEDS: ENOXAPARIN 40 MG/0.4 ML SQ SCH (20:39)
[2017-01-27 01:35] VITALS: BP 115/90
[2017-01-27 04:39] VITALS: BP 120/90
[2017-01-27] MEDS: ACETAMINOPHEN 325 MG TABLET PO PRN ×2 (04:58→12:38)
[2017-01-27 05:23] LABS: MEAN CORPUSCULAR HEMOGLOBIN 30.4 pg (27.5-34.5); MEAN CORPUSCULAR HGB CONC 31.8 g/dL (33.2-36.2); MEAN CORPUSCULAR VOLUME 95.8 fL (81-97); PLATELET COUNT 143 x10^3/uL (130-400); RED BLOOD COUNT 5.85 x10^6/uL (4.38-5.82); RED CELL DISTRIBUTION WIDTH 14.2 % (9.4-14.8)
[2017-01-27 05:28] LABS: CHLORIDE 90 mmol/L (98-107)
[2017-01-27 05:38] LABS: ANION GAP 4 mmol/L (5-15); CALCIUM 9.3 mg/dL (8.5-10.1); CREATININE 1.46 mg/dL (0.7-1.3); TRIGLYCERIDES 160 mg/dL (50-200)
[2017-01-27 05:54] LABS: BASOPHILS % (AUTO) 0 % (0-1); EOSINOPHILS # (AUTO) 0.75 x10^3/uL (0-0.4); EOSINOPHILS % (AUTO) 4 % (1-7); LYMPHOCYTES # (AUTO) 1.13 x10^3/uL (1-3.4); LYMPHOCYTES % (AUTO) 6 % (22-44); MD SCAN; MONOCYTES # (AUTO) 1.91 x10^3/uL (0.2-0.8); MONOCYTES % (AUTO) 11 % (2-9); NEUTROPHILS # (AUTO) 14.46 x10^3/uL (1.8-6.8); NEUTROPHILS % (AUTO) 79 % (42-75)
[2017-01-27] MEDS: NYSTATIN 500,000 UNITS/5 ML UDC PO SCH ×4 (06:16→21:32)
[2017-01-27 06:25] VITALS: BP 97/62
[2017-01-27] MEDS: ALBUTEROL/IPRATROPIUM 2.5MG/0.5MG, 3 ML INLINE SCH ×4 (07:00→20:50)
[2017-01-27] MEDS: INSULIN ASPART 100 UNITS/ML, PEN SQ-INSULIN SCH ×4 (08:53→21:30)
[2017-01-27] MEDS: FUROSEMIDE 40 MG/4 ML IV SCH ×2 (08:53→18:00)
[2017-01-27] MEDS: SODIUM CHLORIDE FLUSH 10ML SYR IVF SCH ×2 (08:54→21:32)
[2017-01-27] MEDS: TAMSULOSIN 0.4 MG CAP.ER.24H PO SCH (08:54)
[2017-01-27] MEDS: CIPROFLOXACIN OPHTH SOLN 0.3%, 5ML EACHEYE SCH ×2 (08:54→21:31)
[2017-01-27] MEDS: FAMOTIDINE 20 MG TABLET PO SCH ×2 (08:55→21:32)
[2017-01-27 13:05] VITALS: BP 124/78
[2017-01-27 18:48] VITALS: BP 125/75
[2017-01-27] MEDS: SIMVASTATIN 40 MG TABLET PO SCH (21:32)
[2017-01-27] MEDS: CEFTRIAXONE PMX 1GM/50ML 50 ML IV SCH (21:32)
[2017-01-27] MEDS: ENOXAPARIN 40 MG/0.4 ML SQ SCH (21:33)
[2017-01-27] MEDS: HYDROcodone/APAP 5/325 TABLET PO PRN (23:43)
[2017-01-28 01:26] VITALS: BP 96/65
[2017-01-28] MEDS: ALBUTEROL/IPRATROPIUM 2.5MG/0.5MG, 3 ML INLINE SCH ×5 (02:45→20:50)
[2017-01-28 03:48] VITALS: BP 110/70
[2017-01-28 05:42] LABS: MEAN CORPUSCULAR HGB CONC 32.6 g/dL (33.2-36.2); MEAN CORPUSCULAR VOLUME 94.9 fL (81-97); MEAN PLATELET VOLUME 8.1 fL (7.4-10.4); PLATELET COUNT 129 x10^3/uL (130-400); RED BLOOD COUNT 5.56 x10^6/uL (4.38-5.82); RED CELL DISTRIBUTION WIDTH 14.3 % (9.4-14.8)
[2017-01-28 05:53] LABS: ANION GAP 3 mmol/L (5-15); CALCIUM 8.9 mg/dL (8.5-10.1); CHLORIDE 88 mmol/L (98-107)
[2017-01-28] MEDS: NYSTATIN 500,000 UNITS/5 ML UDC PO SCH ×4 (06:18→20:25)
[2017-01-28 06:22] LABS: BASOPHILS # (AUTO) 0.01 x10^3/uL (0-0.1); BASOPHILS % (AUTO) 0 % (0-1); EOSINOPHILS # (AUTO) 0.57 x10^3/uL (0-0.4); EOSINOPHILS % (AUTO) 4 % (1-7); LYMPHOCYTES # (AUTO) 1.02 x10^3/uL (1-3.4); LYMPHOCYTES % (AUTO) 7 % (22-44); MD SCAN; MONOCYTES # (AUTO) 1.66 x10^3/uL (0.2-0.8); MONOCYTES % (AUTO) 11 % (2-9); NEUTROPHILS # (AUTO) 12.22 x10^3/uL (1.8-6.8); NEUTROPHILS % (AUTO) 79 % (42-75)
[2017-01-28] MEDS: INSULIN ASPART 100 UNITS/ML, PEN SQ-INSULIN SCH ×4 (07:30→20:25)
[2017-01-28 07:42] VITALS: BP 104/71
[2017-01-28] MEDS: POTASSIUM CHLORIDE 20 MEQ TAB.ER.PRT PO SCH ×3 (10:29→16:30)
[2017-01-28] MEDS: TAMSULOSIN 0.4 MG CAP.ER.24H PO SCH (10:29)
[2017-01-28] MEDS: CIPROFLOXACIN OPHTH SOLN 0.3%, 5ML EACHEYE SCH ×2 (10:29→20:26)
[2017-01-28] MEDS: FAMOTIDINE 20 MG TABLET PO SCH ×2 (10:29→20:26)
[2017-01-28] MEDS: SODIUM CHLORIDE FLUSH 10ML SYR IVF SCH ×2 (10:30→20:26)
[2017-01-28 11:36] LABS: O2 FLOW 4 L/min
[2017-01-28 12:20] VITALS: BP 98/62
[2017-01-28] MEDS ORDERED: DIGOXIN 0.25 MG/ML, 2ML IVPush ONE (16:30)
[2017-01-28 17:24] VITALS: BP 126/80
[2017-01-28 18:40] VITALS: BP 117/71
[2017-01-28] MEDS: SIMVASTATIN 40 MG TABLET PO SCH (20:26)
[2017-01-28] MEDS: ENOXAPARIN 40 MG/0.4 ML SQ SCH (20:26)
[2017-01-29] MEDS: DIGOXIN 0.25 MG/ML, 2ML IVPush SCH ×3 (00:04→08:15)
[2017-01-29 01:08] LABS: TROPONIN I 0.107 ng/mL (0.000-0.045)
[2017-01-29 02:55] VITALS: BP 112/76
[2017-01-29] MEDS: NYSTATIN 500,000 UNITS/5 ML UDC PO SCH ×4 (06:26→21:14)
[2017-01-29 06:28] LABS: ALBUMIN 2.6 g/dL (3.4-5.0); ANION GAP 6 mmol/L (5-15); CALCIUM 9.7 mg/dL (8.5-10.1); CHLORIDE 89 mmol/L (98-107); CREATININE 1.65 mg/dL (0.7-1.3)
[2017-01-29] MEDS: ALBUTEROL/IPRATROPIUM 2.5MG/0.5MG, 3 ML INLINE SCH ×4 (07:00→20:08)
[2017-01-29] MEDS: INSULIN ASPART 100 UNITS/ML, PEN SQ-INSULIN SCH ×4 (07:00→21:00)
[2017-01-29 07:21] LABS: TROPONIN I 0.074 ng/mL (0.000-0.045)
[2017-01-29 07:27] LABS: THYROID STIMULATING HORMONE 0.334 mIU/L (0.358-3.740)
[2017-01-29 08:00] VITALS: BP 140/91
[2017-01-29] MEDS: CIPROFLOXACIN OPHTH SOLN 0.3%, 5ML EACHEYE SCH ×2 (08:14→21:15)
[2017-01-29] MEDS: HYDROcodone/APAP 5/325 TABLET PO PRN (08:14)
[2017-01-29] MEDS: TAMSULOSIN 0.4 MG CAP.ER.24H PO SCH (08:14)
[2017-01-29] MEDS: SODIUM CHLORIDE FLUSH 10ML SYR IVF SCH ×2 (08:15→21:15)
[2017-01-29 13:29] LABS: MICROSCOPIC INDICATED
[2017-01-29 13:47] LABS: CULTURE INDICATED? NO
[2017-01-29 14:09] VITALS: BP 116/66
[2017-01-29 20:00] VITALS: BP 115/74
[2017-01-29] MEDS: FAMOTIDINE 20 MG TABLET PO SCH (21:14)
[2017-01-29] MEDS: SIMVASTATIN 40 MG TABLET PO SCH (21:14)
[2017-01-29] MEDS: ENOXAPARIN 40 MG/0.4 ML SQ SCH (21:15)
[2017-01-30 00:53] VITALS: BP 108/68
[2017-01-30] MEDS: NYSTATIN 500,000 UNITS/5 ML UDC PO SCH ×4 (05:46→20:37)
[2017-01-30] MEDS: ALBUTEROL/IPRATROPIUM 2.5MG/0.5MG, 3 ML INLINE SCH ×3 (07:00→20:00)
[2017-01-30] MEDS: INSULIN ASPART 100 UNITS/ML, PEN SQ-INSULIN SCH ×4 (07:00→20:38)
[2017-01-30 08:11] VITALS: BP 112/72
[2017-01-30 08:22] LABS: MEAN CORPUSCULAR HEMOGLOBIN 30.5 pg (27.5-34.5); MEAN CORPUSCULAR VOLUME 95.4 fL (81-97); MEAN PLATELET VOLUME 8.1 fL (7.4-10.4); PLATELET COUNT 131 x10^3/uL (130-400); RED BLOOD COUNT 5.63 x10^6/uL (4.38-5.82); RED CELL DISTRIBUTION WIDTH 14.7 % (9.4-14.8)
[2017-01-30 08:33] LABS: ALANINE AMINOTRANSFERASE 161 U/L (12-78); ALBUMIN 2.4 g/dL (3.4-5.0); ANION GAP 3 mmol/L (5-15); CALCIUM 9.8 mg/dL (8.5-10.1); CHLORIDE 95 mmol/L (98-107); CREATININE 1.16 mg/dL (0.7-1.3)
[2017-01-30 08:42] LABS: ALKALINE PHOSPHATASE 91 U/L (45-117); BILIRUBIN,TOTAL 1.4 mg/dL (0.2-1.0); TOTAL PROTEIN 7.6 g/dL (6.4-8.2)
[2017-01-30 08:56] LABS: MD YES
[2017-01-30 08:59] LABS: EOS#(MANUAL) 0.55 x10^3/uL (0.0-0.4); EOS% (MANUAL) 4 % (1-7); LYMPH#(MANUAL) 1.38 x10^3/uL (1-3.4); LYMPHS% (MANUAL) 10 % (22-44); MONOS% (MANUAL) 8 % (2-9); REACTIVE LYMPHS # (MANUAL) 0.14 x10^3/uL (0-0); REACTIVE LYMPHS % (MANUAL) 1 % (0-0); SEG#(MANUAL) 10.63 x10^3/uL (1.8-6.8); SEGS% (MANUAL) 77 % (42-75)
[2017-01-30 09:00] LABS: <PLATELET ESTIMATE> ADEQUATE; <PLT MORPHOLOGY> NORMAL PLT MORPH
[2017-01-30 09:01] LABS: <RBC MORPHOLOGY> NORMAL
[2017-01-30] MEDS: TAMSULOSIN 0.4 MG CAP.ER.24H PO SCH (11:47)
[2017-01-30] MEDS: CIPROFLOXACIN OPHTH SOLN 0.3%, 5ML EACHEYE SCH ×2 (11:47→20:37)
[2017-01-30] MEDS: AcetaZOLAMIDE ER 500 MG CAPSULE PO SCH ×2 (11:47→20:37)
[2017-01-30] MEDS: SODIUM CHLORIDE FLUSH 10ML SYR IVF SCH ×2 (11:48→20:38)
[2017-01-30] MEDS: LACTULOSE 20 GM/30 ML UDC PO SCH ×2 (11:48→16:59)
[2017-01-30 14:30] VITALS: BP 105/71
[2017-01-30] MEDS ORDERED: TIMO5DRO28 EACHEYE (16:23)
[2017-01-30] MEDS ORDERED: FURO20TA3 PO (16:23)
[2017-01-30] MEDS ORDERED: IRBE1TAB13 PO (16:23)
[2017-01-30] MEDS ORDERED: FINA5TAB4 PO (16:23)
[2017-01-30] MEDS ORDERED: SIMV40TA3 PO (16:23)
[2017-01-30] MEDS ORDERED: SIMV10TA3 PO (16:23)
[2017-01-30] MEDS ORDERED: TAMS0.4C2 PO (16:23)
[2017-01-30] MEDS ORDERED: METF850T2 PO (16:23)
[2017-01-30] MEDS ORDERED: DORZ10DR3 EACHEYE (16:23)
[2017-01-30] MEDS ORDERED: CHOL2000 PO (16:23)
[2017-01-30] MEDS ORDERED: ASPI-515 PO (16:23)
[2017-01-30 19:15] VITALS: BP 107/67
[2017-01-30] MEDS: FAMOTIDINE 20 MG TABLET PO SCH (20:37)
[2017-01-30] MEDS: SIMVASTATIN 40 MG TABLET PO SCH (20:37)
[2017-01-30] MEDS: ENOXAPARIN 40 MG/0.4 ML SQ SCH (20:37)
[2017-01-31 03:25] VITALS: BP 106/64
[2017-01-31] MEDS: NYSTATIN 500,000 UNITS/5 ML UDC PO SCH ×5 (05:36→21:00)
[2017-01-31] MEDS: LACTULOSE 20 GM/30 ML UDC PO SCH ×5 (05:36→21:00)
[2017-01-31 06:47] VITALS: BP 100/66
[2017-01-31] MEDS: INSULIN ASPART 100 UNITS/ML, PEN SQ-INSULIN SCH ×4 (07:00→21:00)
[2017-01-31] MEDS: ALBUTEROL/IPRATROPIUM 2.5MG/0.5MG, 3 ML INLINE SCH ×4 (08:00→20:23)
[2017-01-31 08:20] LABS: ALANINE AMINOTRANSFERASE 136 U/L (12-78); ALBUMIN 2.3 g/dL (3.4-5.0); ANION GAP 6 mmol/L (5-15); CALCIUM 9.8 mg/dL (8.5-10.1); CHLORIDE 99 mmol/L (98-107); CREATININE 1.03 mg/dL (0.7-1.3)
[2017-01-31 08:22] LABS: ALKALINE PHOSPHATASE 100 U/L (45-117); BILIRUBIN,TOTAL 1.4 mg/dL (0.2-1.0); TOTAL PROTEIN 7.8 g/dL (6.4-8.2)
[2017-01-31] MEDS: TAMSULOSIN 0.4 MG CAP.ER.24H PO SCH (09:59)
[2017-01-31] MEDS: POTASSIUM CHLORIDE 20 MEQ TAB.ER.PRT PO SCH ×3 (09:59→17:27)
[2017-01-31] MEDS: CIPROFLOXACIN OPHTH SOLN 0.3%, 5ML EACHEYE SCH ×2 (09:59→21:25)
[2017-01-31] MEDS: SODIUM CHLORIDE FLUSH 10ML SYR IVF SCH ×2 (09:59→21:26)
[2017-01-31] MEDS: AcetaZOLAMIDE ER 500 MG CAPSULE PO SCH ×2 (09:59→21:00)
[2017-01-31 12:26] VITALS: BP 116/76
[2017-01-31 21:00] VITALS: BP 116/76
[2017-01-31] MEDS: FAMOTIDINE 20 MG TABLET PO SCH (21:00)
[2017-01-31] MEDS: ENOXAPARIN 40 MG/0.4 ML SQ SCH (21:20)
[2017-01-31] MEDS: SIMVASTATIN 40 MG TABLET PO SCH (21:21)
[2017-02-01 02:46] VITALS: BP 103/69
[2017-02-01] MEDS: LACTULOSE 20 GM/30 ML UDC PO SCH ×5 (06:26→21:06)
[2017-02-01] MEDS: NYSTATIN 500,000 UNITS/5 ML UDC PO SCH ×4 (06:26→16:00)
[2017-02-01 06:30] VITALS: BP_SYST 119; BP_SYST 151; BP_DIAS 106; BP_DIAS 68
[2017-02-01] MEDS: ALBUTEROL/IPRATROPIUM 2.5MG/0.5MG, 3 ML INLINE SCH ×4 (07:20→19:36)
[2017-02-01 08:15] LABS: ANION GAP 6 mmol/L (5-15); CALCIUM 9.9 mg/dL (8.5-10.1); CHLORIDE 103 mmol/L (98-107); CREATININE 1.04 mg/dL (0.7-1.3)
[2017-02-01] MEDS: INSULIN ASPART 100 UNITS/ML, PEN SQ-INSULIN SCH ×4 (09:37→21:09)
[2017-02-01] MEDS: SODIUM CHLORIDE FLUSH 10ML SYR IVF SCH ×2 (09:37→21:07)
[2017-02-01] MEDS: TAMSULOSIN 0.4 MG CAP.ER.24H PO SCH (09:37)
[2017-02-01] MEDS: CIPROFLOXACIN OPHTH SOLN 0.3%, 5ML EACHEYE SCH ×2 (09:37→21:05)
[2017-02-01] MEDS: AcetaZOLAMIDE ER 500 MG CAPSULE PO SCH ×2 (09:37→21:06)
[2017-02-01 14:30] VITALS: BP 121/80
[2017-02-01] MEDS ORDERED: POTASSIUM CHLORIDE 20 MEQ TAB.ER.PRT PO ONE (16:30)
[2017-02-01 20:26] VITALS: BP 118/59
[2017-02-01] MEDS: SIMVASTATIN 40 MG TABLET PO SCH (21:05)
[2017-02-01] MEDS: ENOXAPARIN 40 MG/0.4 ML SQ SCH (21:06)
[2017-02-01] MEDS: FAMOTIDINE 20 MG TABLET PO SCH (21:06)
[2017-02-02 00:31] VITALS: BP 120/78
[2017-02-02] MEDS: LACTULOSE 20 GM/30 ML UDC PO SCH ×4 (06:12→23:33)
[2017-02-02] MEDS: ALBUTEROL/IPRATROPIUM 2.5MG/0.5MG, 3 ML INLINE SCH ×4 (06:40→19:27)
[2017-02-02] MEDS: INSULIN ASPART 100 UNITS/ML, PEN SQ-INSULIN SCH ×4 (07:00→21:00)
[2017-02-02 07:56] VITALS: BP 140/85
[2017-02-02] MEDS: FAMOTIDINE 20 MG TABLET PO SCH ×3 (08:25→23:34)
[2017-02-02] MEDS: AcetaZOLAMIDE ER 500 MG CAPSULE PO SCH ×3 (08:25→23:34)
[2017-02-02] MEDS: TAMSULOSIN 0.4 MG CAP.ER.24H PO SCH ×2 (08:25→12:02)
[2017-02-02] MEDS: SODIUM CHLORIDE FLUSH 10ML SYR IVF SCH ×2 (08:25→23:47)
[2017-02-02] MEDS: CIPROFLOXACIN OPHTH SOLN 0.3%, 5ML EACHEYE SCH ×2 (08:25→23:33)
[2017-02-02 08:28] LABS: ANION GAP 7 mmol/L (5-15); CALCIUM 10.1 mg/dL (8.5-10.1); CHLORIDE 106 mmol/L (98-107); CREATININE 1.17 mg/dL (0.7-1.3)
[2017-02-02 14:00] VITALS: BP 125/82
[2017-02-02] MEDS: POTASSIUM CHLORIDE 20 MEQ TAB.ER.PRT PO SCH ×3 (14:13→22:00)
[2017-02-02 18:48] VITALS: BP 118/76
[2017-02-02 19:32] VITALS: BP 112/69
[2017-02-02] MEDS: ENOXAPARIN 40 MG/0.4 ML SQ SCH (23:34)
[2017-02-02] MEDS: SIMVASTATIN 40 MG TABLET PO SCH (23:34)
[2017-02-03 01:58] VITALS: BP 117/78
[2017-02-03] MEDS: LACTULOSE 20 GM/30 ML UDC PO SCH ×4 (06:10→20:23)
[2017-02-03] MEDS: INSULIN ASPART 100 UNITS/ML, PEN SQ-INSULIN SCH ×4 (07:00→20:08)
[2017-02-03] MEDS: ALBUTEROL/IPRATROPIUM 2.5MG/0.5MG, 3 ML INLINE SCH ×4 (07:25→20:00)
[2017-02-03] MEDS: SODIUM CHLORIDE FLUSH 10ML SYR IVF SCH ×2 (07:44→20:23)
[2017-02-03] MEDS: FAMOTIDINE 20 MG TABLET PO SCH ×2 (07:46→20:22)
[2017-02-03] MEDS: TAMSULOSIN 0.4 MG CAP.ER.24H PO SCH (07:46)
[2017-02-03] MEDS: CIPROFLOXACIN OPHTH SOLN 0.3%, 5ML EACHEYE SCH ×2 (07:46→20:23)
[2017-02-03] MEDS: AcetaZOLAMIDE ER 500 MG CAPSULE PO SCH ×2 (07:46→20:22)
[2017-02-03 07:47] VITALS: BP 121/82
[2017-02-03 09:54] LABS: ANION GAP 5 mmol/L (5-15); CALCIUM 10.7 mg/dL (8.5-10.1); CHLORIDE 108 mmol/L (98-107); CREATININE 1.47 mg/dL (0.7-1.3)
[2017-02-03 09:55] LABS: MEAN CORPUSCULAR HEMOGLOBIN 30.3 pg (27.5-34.5); MEAN CORPUSCULAR VOLUME 94.7 fL (81-97); MEAN PLATELET VOLUME 8.4 fL (7.4-10.4); PLATELET COUNT 174 x10^3/uL (130-400); RED BLOOD COUNT 6.02 x10^6/uL (4.38-5.82); RED CELL DISTRIBUTION WIDTH 14.8 % (9.4-14.8)
[2017-02-03 10:11] LABS: BASOPHILS # (AUTO) 0.02 x10^3/uL (0-0.1); BASOPHILS % (AUTO) 0 % (0-1); EOSINOPHILS # (AUTO) 1.72 x10^3/uL (0-0.4); EOSINOPHILS % (AUTO) 10 % (1-7); LYMPHOCYTES # (AUTO) 1.64 x10^3/uL (1-3.4); LYMPHOCYTES % (AUTO) 10 % (22-44); MD SCAN; MONOCYTES # (AUTO) 1.26 x10^3/uL (0.2-0.8); MONOCYTES % (AUTO) 8 % (2-9); NEUTROPHILS # (AUTO) 11.87 x10^3/uL (1.8-6.8); NEUTROPHILS % (AUTO) 72 % (42-75)
[2017-02-03 14:17] VITALS: BP 102/70
[2017-02-03 20:05] VITALS: BP 124/76
[2017-02-03] MEDS: SIMVASTATIN 40 MG TABLET PO SCH (20:22)
[2017-02-03] MEDS: ENOXAPARIN 40 MG/0.4 ML SQ SCH (20:23)
[2017-02-04 01:25] VITALS: BP 113/73
[2017-02-04] MEDS: LACTULOSE 20 GM/30 ML UDC PO SCH ×4 (05:22→21:00)
[2017-02-04] MEDS: INSULIN ASPART 100 UNITS/ML, PEN SQ-INSULIN SCH ×4 (07:00→20:14)
[2017-02-04 07:13] VITALS: BP 105/64
[2017-02-04] MEDS: ALBUTEROL/IPRATROPIUM 2.5MG/0.5MG, 3 ML INLINE SCH ×4 (07:20→20:00)
[2017-02-04] MEDS: FAMOTIDINE 20 MG TABLET PO SCH ×2 (09:00→21:57)
[2017-02-04] MEDS: TAMSULOSIN 0.4 MG CAP.ER.24H PO SCH (09:00)
[2017-02-04] MEDS: CIPROFLOXACIN OPHTH SOLN 0.3%, 5ML EACHEYE SCH ×2 (09:16→21:57)
[2017-02-04] MEDS: SODIUM CHLORIDE FLUSH 10ML SYR IVF SCH ×2 (09:17→21:57)
[2017-02-04 13:00] VITALS: BP 124/80
[2017-02-04 19:18] VITALS: BP 110/67
[2017-02-04] MEDS: SIMVASTATIN 40 MG TABLET PO SCH (21:57)
[2017-02-04] MEDS: ENOXAPARIN 40 MG/0.4 ML SQ SCH (21:58)
[2017-02-05 01:16] VITALS: BP 101/66
[2017-02-05] MEDS: LACTULOSE 20 GM/30 ML UDC PO SCH ×4 (05:03→21:00)
[2017-02-05 06:34] VITALS: BP 124/80
[2017-02-05] MEDS: INSULIN ASPART 100 UNITS/ML, PEN SQ-INSULIN SCH ×4 (07:00→21:00)
[2017-02-05] MEDS: ALBUTEROL/IPRATROPIUM 2.5MG/0.5MG, 3 ML INLINE SCH ×4 (07:43→18:27)
[2017-02-05] MEDS: CIPROFLOXACIN OPHTH SOLN 0.3%, 5ML EACHEYE SCH (09:00)
[2017-02-05] MEDS: SODIUM CHLORIDE FLUSH 10ML SYR IVF SCH ×2 (10:03→21:06)
[2017-02-05] MEDS: TAMSULOSIN 0.4 MG CAP.ER.24H PO SCH (10:03)
[2017-02-05] MEDS: FAMOTIDINE 20 MG TABLET PO SCH ×2 (10:03→21:06)
[2017-02-05 12:58] VITALS: BP 106/66
[2017-02-05 19:04] VITALS: BP 127/72
[2017-02-05] MEDS: ENOXAPARIN 40 MG/0.4 ML SQ SCH (21:06)
[2017-02-05] MEDS: SIMVASTATIN 40 MG TABLET PO SCH (21:06)
[2017-02-06 02:00] VITALS: BP 108/71
[2017-02-06] MEDS: LACTULOSE 20 GM/30 ML UDC PO SCH ×4 (05:09→20:49)
[2017-02-06 07:00] VITALS: BP 100/64
[2017-02-06] MEDS: INSULIN ASPART 100 UNITS/ML, PEN SQ-INSULIN SCH ×4 (07:00→20:51)
[2017-02-06] MEDS: ALBUTEROL/IPRATROPIUM 2.5MG/0.5MG, 3 ML INLINE SCH ×4 (08:40→19:30)
[2017-02-06] MEDS: TAMSULOSIN 0.4 MG CAP.ER.24H PO SCH (09:08)
[2017-02-06] MEDS: SODIUM CHLORIDE FLUSH 10ML SYR IVF SCH ×2 (09:08→20:49)
[2017-02-06] MEDS: FAMOTIDINE 20 MG TABLET PO SCH ×2 (09:08→20:50)
[2017-02-06 13:10] VITALS: BP 103/68
[2017-02-06 16:36] LABS: ANION GAP 6 mmol/L (5-15); CALCIUM 9.2 mg/dL (8.5-10.1); CHLORIDE 111 mmol/L (98-107); CREATININE 1.26 mg/dL (0.7-1.3)
[2017-02-06] MEDS ORDERED: LACTULOSE 3.3 GM/5 ML ORAL.SOL RC ONE (17:00)
[2017-02-06] MEDS: D5%-0.45NACL+KCL 40MEQ 1,000 ML IV SCH (18:33)
[2017-02-06 20:00] VITALS: BP 102/68
[2017-02-06] MEDS: POTASSIUM CHLORIDE 20 MEQ TAB.ER.PRT PO SCH (20:49)
[2017-02-06] MEDS: SIMVASTATIN 40 MG TABLET PO SCH (20:50)
[2017-02-06] MEDS: ENOXAPARIN 40 MG/0.4 ML SQ SCH (20:50)
[2017-02-06] MEDS: RIFAXIMIN 550 MG TABLET PO SCH (21:07)
[2017-02-07] MEDS: POTASSIUM CHLORIDE 20 MEQ TAB.ER.PRT PO SCH ×2 (01:12→05:37)
[2017-02-07 02:00] VITALS: BP 98/66
[2017-02-07] MEDS: LACTULOSE 20 GM/30 ML UDC PO SCH ×4 (05:37→22:04)
[2017-02-07 06:25] LABS: ALANINE AMINOTRANSFERASE 103 U/L (12-78); ALBUMIN 2.5 g/dL (3.4-5.0); ANION GAP 5 mmol/L (5-15); CALCIUM 8.8 mg/dL (8.5-10.1); CHLORIDE 115 mmol/L (98-107); CREATININE 1.24 mg/dL (0.7-1.3)
[2017-02-07 06:27] LABS: ALKALINE PHOSPHATASE 84 U/L (45-117); BILIRUBIN,TOTAL 2.3 mg/dL (0.2-1.0); TOTAL PROTEIN 7.2 g/dL (6.4-8.2)
[2017-02-07 06:45] VITALS: BP 110/69
[2017-02-07] MEDS: INSULIN ASPART 100 UNITS/ML, PEN SQ-INSULIN SCH ×4 (07:00→21:00)
[2017-02-07] MEDS: ALBUTEROL/IPRATROPIUM 2.5MG/0.5MG, 3 ML INLINE SCH ×3 (07:00→15:00)
[2017-02-07] MEDS: SODIUM CHLORIDE FLUSH 10ML SYR IVF SCH ×2 (09:00→22:05)
[2017-02-07] MEDS: RIFAXIMIN 550 MG TABLET PO SCH ×3 (09:00→22:04)
[2017-02-07] MEDS: TAMSULOSIN 0.4 MG CAP.ER.24H PO SCH ×2 (09:00→10:03)
[2017-02-07] MEDS: FAMOTIDINE 20 MG TABLET PO SCH ×3 (09:00→22:04)
[2017-02-07 12:14] VITALS: BP 102/66
[2017-02-07] MEDS: D5%-0.45NACL+KCL 40MEQ 1,000 ML IV SCH (12:51)
[2017-02-07 20:00] VITALS: BP 105/68
[2017-02-07] MEDS: ENOXAPARIN 40 MG/0.4 ML SQ SCH (21:00)
[2017-02-07] MEDS: SIMVASTATIN 40 MG TABLET PO SCH (22:04)
[2017-02-08] MEDS: D5%-0.45NACL+KCL 40MEQ 1,000 ML IV SCH ×2 (01:19→14:06)
[2017-02-08 03:06] VITALS: BP 118/76
[2017-02-08] MEDS: LACTULOSE 20 GM/30 ML UDC PO SCH (05:52)
[2017-02-08] MEDS: INSULIN ASPART 100 UNITS/ML, PEN SQ-INSULIN SCH ×4 (07:00→20:47)
[2017-02-08 07:17] VITALS: BP 118/75
[2017-02-08] MEDS: SODIUM CHLORIDE FLUSH 10ML SYR IVF SCH ×2 (08:45→20:46)
[2017-02-08] MEDS: TAMSULOSIN 0.4 MG CAP.ER.24H PO SCH (12:01)
[2017-02-08] MEDS: RIFAXIMIN 550 MG TABLET PO SCH ×2 (12:01→20:47)
[2017-02-08 13:24] VITALS: BP 120/72
[2017-02-08 18:57] VITALS: BP 120/66
[2017-02-08] MEDS: SIMVASTATIN 40 MG TABLET PO SCH (20:47)
[2017-02-08] MEDS: ENOXAPARIN 40 MG/0.4 ML SQ SCH (20:47)
[2017-02-08] MEDS: FAMOTIDINE 20 MG TABLET PO SCH (20:47)
[2017-02-09 00:33] VITALS: BP 113/71
[2017-02-09] MEDS: D5%-0.45NACL+KCL 40MEQ 1,000 ML IV SCH (04:11)
[2017-02-09 07:26] VITALS: BP 115/71
[2017-02-09] MEDS: INSULIN ASPART 100 UNITS/ML, PEN SQ-INSULIN SCH ×4 (08:37→20:37)
[2017-02-09] MEDS: RIFAXIMIN 550 MG TABLET PO SCH ×2 (08:37→20:31)
[2017-02-09] MEDS: TAMSULOSIN 0.4 MG CAP.ER.24H PO SCH (08:37)
[2017-02-09] MEDS: SODIUM CHLORIDE FLUSH 10ML SYR IVF SCH ×2 (08:38→20:37)
[2017-02-09 11:52] LABS: ALANINE AMINOTRANSFERASE 55 U/L (12-78); ANION GAP 5 mmol/L (5-15); CALCIUM 8.1 mg/dL (8.5-10.1); CHLORIDE 122 mmol/L (98-107)
[2017-02-09 11:55] LABS: ALKALINE PHOSPHATASE 79 U/L (45-117); CREATININE 0.84 mg/dL (0.7-1.3); TOTAL PROTEIN 6.3 g/dL (6.4-8.2)
[2017-02-09 13:44] VITALS: BP 103/63
[2017-02-09] MEDS ORDERED: MAGNESIUM SULFATE PMX 4GM/100M 100 ML IV ONE (15:30)
[2017-02-09 20:04] VITALS: BP 116/66
[2017-02-09] MEDS: SIMVASTATIN 40 MG TABLET PO SCH (20:30)
[2017-02-09] MEDS: FAMOTIDINE 20 MG TABLET PO SCH (20:30)
[2017-02-09] MEDS: ENOXAPARIN 40 MG/0.4 ML SQ SCH (20:31)
[2017-02-10 00:57] VITALS: BP 106/66
[2017-02-10] MEDS: INSULIN ASPART 100 UNITS/ML, PEN SQ-INSULIN SCH ×4 (07:00→20:31)
[2017-02-10 07:01] VITALS: BP 99/61
[2017-02-10 07:35] LABS: MEAN CORPUSCULAR HEMOGLOBIN 30.4 pg (27.5-34.5); MEAN CORPUSCULAR HGB CONC 32.3 g/dL (33.2-36.2); MEAN CORPUSCULAR VOLUME 94.1 fL (81-97); MEAN PLATELET VOLUME 8.4 fL (7.4-10.4); PLATELET COUNT 132 x10^3/uL (130-400); RED BLOOD COUNT 4.62 x10^6/uL (4.38-5.82)
[2017-02-10 07:47] LABS: ALBUMIN 1.8 g/dL (3.4-5.0); ANION GAP 6 mmol/L (5-15); CALCIUM 7.7 mg/dL (8.5-10.1); CHLORIDE 119 mmol/L (98-107)
[2017-02-10 07:48] LABS: CREATININE 0.74 mg/dL (0.7-1.3)
[2017-02-10 07:56] LABS: BASOPHILS # (AUTO) 0.04 x10^3/uL (0-0.1); BASOPHILS % (AUTO) 0 % (0-1); EOSINOPHILS # (AUTO) 3.28 x10^3/uL (0-0.4); EOSINOPHILS % (AUTO) 24 % (1-7); LYMPHOCYTES # (AUTO) 1.88 x10^3/uL (1-3.4); LYMPHOCYTES % (AUTO) 14 % (22-44); MD SCAN; MONOCYTES # (AUTO) 1.02 x10^3/uL (0.2-0.8); MONOCYTES % (AUTO) 8 % (2-9); NEUTROPHILS # (AUTO) 7.23 x10^3/uL (1.8-6.8); NEUTROPHILS % (AUTO) 54 % (42-75)
[2017-02-10] MEDS: TAMSULOSIN 0.4 MG CAP.ER.24H PO SCH (09:14)
[2017-02-10] MEDS: FAMOTIDINE 20 MG TABLET PO SCH ×2 (09:14→20:21)
[2017-02-10] MEDS: RIFAXIMIN 550 MG TABLET PO SCH ×2 (09:14→20:21)
[2017-02-10] MEDS: SODIUM CHLORIDE FLUSH 10ML SYR IVF SCH ×2 (09:15→20:24)
[2017-02-10 13:12] VITALS: BP 113/62
[2017-02-10 19:51] VITALS: BP 109/65
[2017-02-10] MEDS ORDERED: TAMS-11 PO (20:07)
[2017-02-10] MEDS ORDERED: RIFA550T4 PO (20:07)
[2017-02-10] MEDS ORDERED: SIMV40TA3 PO (20:07)
[2017-02-10] MEDS: SIMVASTATIN 40 MG TABLET PO SCH (20:21)
[2017-02-10] MEDS: ENOXAPARIN 40 MG/0.4 ML SQ SCH (20:24)
[2017-02-10] MEDS: ALBUTEROL/IPRATROPIUM 2.5MG/0.5MG, 3 ML NPPB PRN (21:34)
[2017-02-11] MEDS: HYDROcodone/APAP 5/325 TABLET PO PRN (00:20)
[2017-02-11 00:56] VITALS: BP 109/69
[2017-02-11] MEDS: INSULIN ASPART 100 UNITS/ML, PEN SQ-INSULIN SCH ×4 (07:00→20:00)
[2017-02-11 07:10] VITALS: BP 104/59
[2017-02-11] MEDS: RIFAXIMIN 550 MG TABLET PO SCH ×2 (10:44→19:59)
[2017-02-11] MEDS: SODIUM CHLORIDE FLUSH 10ML SYR IVF SCH ×2 (10:44→19:59)
[2017-02-11] MEDS: FAMOTIDINE 20 MG TABLET PO SCH ×2 (10:44→19:58)
[2017-02-11] MEDS: TAMSULOSIN 0.4 MG CAP.ER.24H PO SCH (10:44)
[2017-02-11] MEDS: ALBUTEROL/IPRATROPIUM 2.5MG/0.5MG, 3 ML NPPB PRN (12:06)
[2017-02-11 12:53] VITALS: BP 103/60
[2017-02-11 18:11] VITALS: BP 101/64
[2017-02-11] MEDS: ENOXAPARIN 40 MG/0.4 ML SQ SCH (19:58)
[2017-02-11] MEDS: SIMVASTATIN 40 MG TABLET PO SCH (19:58)
[2017-02-12 02:01] VITALS: BP 102/65
[2017-02-12] MEDS: INSULIN ASPART 100 UNITS/ML, PEN SQ-INSULIN SCH (07:00)
[2017-02-12 07:44] VITALS: BP 99/59
[2017-02-12] MEDS: SODIUM CHLORIDE FLUSH 10ML SYR IVF SCH ×2 (09:39→21:00)
[2017-02-12] MEDS: RIFAXIMIN 550 MG TABLET PO SCH ×2 (09:39→21:13)
[2017-02-12] MEDS: FAMOTIDINE 20 MG TABLET PO SCH ×2 (09:39→21:13)
[2017-02-12] MEDS: TAMSULOSIN 0.4 MG CAP.ER.24H PO SCH (09:39)
[2017-02-12 12:46] VITALS: BP 108/66
[2017-02-12] MEDS: ALBUTEROL/IPRATROPIUM 2.5MG/0.5MG, 3 ML NPPB PRN ×2 (13:50→23:37)
[2017-02-12 20:00] VITALS: BP 100/63
[2017-02-12] MEDS: ENOXAPARIN 40 MG/0.4 ML SQ SCH (21:13)
[2017-02-12] MEDS: SIMVASTATIN 40 MG TABLET PO SCH (21:13)
[2017-02-13 02:00] VITALS: BP 100/59
[2017-02-13 06:50] VITALS: BP 100/60
[2017-02-13] MEDS: RIFAXIMIN 550 MG TABLET PO SCH ×2 (07:45→21:06)
[2017-02-13] MEDS: FAMOTIDINE 20 MG TABLET PO SCH ×2 (07:45→21:06)
[2017-02-13] MEDS: TAMSULOSIN 0.4 MG CAP.ER.24H PO SCH (07:45)
[2017-02-13] MEDS: SODIUM CHLORIDE FLUSH 10ML SYR IVF SCH ×2 (07:46→21:00)
[2017-02-13 12:05] VITALS: BP 90/53
[2017-02-13 19:15] VITALS: BP 105/61
[2017-02-13] MEDS: SIMVASTATIN 40 MG TABLET PO SCH (21:06)
[2017-02-13] MEDS: ENOXAPARIN 40 MG/0.4 ML SQ SCH (21:06)
[2017-02-14 03:18] VITALS: BP 118/69
[2017-02-14 08:10] VITALS: BP 103/56
[2017-02-14] MEDS: FAMOTIDINE 20 MG TABLET PO SCH ×2 (12:00→21:22)
[2017-02-14] MEDS: RIFAXIMIN 550 MG TABLET PO SCH ×2 (12:00→21:22)
[2017-02-14] MEDS: SODIUM CHLORIDE FLUSH 10ML SYR IVF SCH ×2 (12:00→21:20)
[2017-02-14] MEDS: TAMSULOSIN 0.4 MG CAP.ER.24H PO SCH (12:00)
[2017-02-14 15:15] VITALS: BP 111/70
[2017-02-14 19:32] VITALS: BP 117/61
[2017-02-14] MEDS: ENOXAPARIN 40 MG/0.4 ML SQ SCH (21:22)
[2017-02-14] MEDS: SIMVASTATIN 40 MG TABLET PO SCH (21:22)
[2017-02-14] MEDS: ALBUTEROL/IPRATROPIUM 2.5MG/0.5MG, 3 ML NPPB PRN (23:32)
[2017-02-15 03:32] VITALS: BP 98/58
[2017-02-15 05:49] LABS: CREATININE 0.63 mg/dL (0.7-1.3)
[2017-02-15 08:05] VITALS: BP 113/64
[2017-02-15] MEDS: FAMOTIDINE 20 MG TABLET PO SCH ×2 (09:46→20:35)
[2017-02-15] MEDS: RIFAXIMIN 550 MG TABLET PO SCH ×2 (09:46→20:35)
[2017-02-15] MEDS: SODIUM CHLORIDE FLUSH 10ML SYR IVF SCH ×2 (09:46→20:34)
[2017-02-15] MEDS: TAMSULOSIN 0.4 MG CAP.ER.24H PO SCH (09:46)
[2017-02-15 14:00] VITALS: BP 120/62
[2017-02-15 20:27] VITALS: BP 111/72
[2017-02-15] MEDS: SIMVASTATIN 40 MG TABLET PO SCH (20:35)
[2017-02-15] MEDS: ENOXAPARIN 40 MG/0.4 ML SQ SCH (20:35)
[2017-02-16 02:57] VITALS: BP 121/67
[2017-02-16 06:40] VITALS: BP 120/70
[2017-02-16] MEDS: SODIUM CHLORIDE FLUSH 10ML SYR IVF SCH ×2 (08:09→20:15)
[2017-02-16] MEDS: RIFAXIMIN 550 MG TABLET PO SCH ×2 (08:11→20:09)
[2017-02-16] MEDS: FAMOTIDINE 20 MG TABLET PO SCH ×2 (08:11→20:09)
[2017-02-16] MEDS: TAMSULOSIN 0.4 MG CAP.ER.24H PO SCH (08:11)
[2017-02-16 14:06] VITALS: BP 125/74
[2017-02-16 19:23] VITALS: BP 112/65
[2017-02-16] MEDS: SIMVASTATIN 40 MG TABLET PO SCH (20:09)
[2017-02-16] MEDS: ENOXAPARIN 40 MG/0.4 ML SQ SCH (20:10)
[2017-02-17 02:05] VITALS: BP 119/66
[2017-02-17] MEDS: SODIUM CHLORIDE 0.9% 1,000 ML IV SCH ×3 (07:28→23:01)
[2017-02-17] MEDS: SODIUM CHLORIDE FLUSH 10ML SYR IVF SCH ×2 (08:17→21:00)
[2017-02-17] MEDS: RIFAXIMIN 550 MG TABLET PO SCH ×2 (13:08→22:25)
[2017-02-17] MEDS: FAMOTIDINE 20 MG TABLET PO SCH ×2 (13:09→22:26)
[2017-02-17] MEDS: TAMSULOSIN 0.4 MG CAP.ER.24H PO SCH (13:09)
[2017-02-17 15:52] LABS: CULTURE INDICATED? YES; MICROSCOPIC INDICATED
[2017-02-17 16:34] LABS: BASOPHILS # (AUTO) 0.01 x10^3/uL (0-0.1); BASOPHILS % (AUTO) 0 % (0-1); EOSINOPHILS # (AUTO) 0.62 x10^3/uL (0-0.4); EOSINOPHILS % (AUTO) 7 % (1-7); LYMPHOCYTES % (AUTO) 20 % (22-44); MD NO; MEAN CORPUSCULAR HEMOGLOBIN 30.1 pg (27.5-34.5); MEAN CORPUSCULAR HGB CONC 31.5 g/dL (33.2-36.2); MEAN CORPUSCULAR VOLUME 95.6 fL (81-97); MEAN PLATELET VOLUME 7.1 fL (7.4-10.4); MONOCYTES # (AUTO) 0.82 x10^3/uL (0.2-0.8); MONOCYTES % (AUTO) 9 % (2-9); NEUTROPHILS % (AUTO) 65 % (42-75); PLATELET COUNT 151 x10^3/uL (130-400); RED BLOOD COUNT 4.16 x10^6/uL (4.38-5.82); RED CELL DISTRIBUTION WIDTH 16.4 % (9.4-14.8)
[2017-02-17] MEDS: LACTULOSE 20 GM/30 ML UDC PO SCH ×2 (17:49→22:26)
[2017-02-17] MEDS ORDERED: LACTULOSE 20 GM/30 ML UDC PO SCH (18:00)
[2017-02-17] MEDS: SIMVASTATIN 40 MG TABLET PO SCH ×2 (21:00→22:26)
[2017-02-17] MEDS: ENOXAPARIN 40 MG/0.4 ML SQ SCH (22:26)
[2017-02-18 05:06] LABS: BASOPHILS # (AUTO) 0.01 x10^3/uL (0-0.1); BASOPHILS % (AUTO) 0 % (0-1); EOSINOPHILS # (AUTO) 0.64 x10^3/uL (0-0.4); EOSINOPHILS % (AUTO) 7 % (1-7); LYMPHOCYTES # (AUTO) 1.86 x10^3/uL (1-3.4); LYMPHOCYTES % (AUTO) 20 % (22-44); MD NO; MEAN CORPUSCULAR HEMOGLOBIN 30.5 pg (27.5-34.5); MEAN CORPUSCULAR HGB CONC 31.6 g/dL (33.2-36.2); MEAN CORPUSCULAR VOLUME 96.3 fL (81-97); MEAN PLATELET VOLUME 7.3 fL (7.4-10.4); MONOCYTES # (AUTO) 0.63 x10^3/uL (0.2-0.8); MONOCYTES % (AUTO) 7 % (2-9); NEUTROPHILS % (AUTO) 66 % (42-75); PLATELET COUNT 148 x10^3/uL (130-400); RED CELL DISTRIBUTION WIDTH 15.8 % (9.4-14.8)
[2017-02-18 05:14] LABS: ALBUMIN 1.9 g/dL (3.4-5.0); ANION GAP 3 mmol/L (5-15); CALCIUM 7.8 mg/dL (8.5-10.1); CHLORIDE 104 mmol/L (98-107)
[2017-02-18 05:17] LABS: ALANINE AMINOTRANSFERASE 26 U/L (12-78); ALKALINE PHOSPHATASE 68 U/L (45-117); BILIRUBIN,TOTAL 0.7 mg/dL (0.2-1.0); TOTAL PROTEIN 6.1 g/dL (6.4-8.2)
[2017-02-18] MEDS: SODIUM CHLORIDE 0.9% 1,000 ML IV SCH ×3 (06:21→21:18)
[2017-02-18] MEDS: LACTULOSE 20 GM/30 ML UDC PO SCH ×5 (06:21→21:11)
[2017-02-18] MEDS ORDERED: POTASSIUM CHLORIDE 40 MEQ in SODIUM CHLORIDE 0.9% 500 ML IV ONE (10:30)
[2017-02-18] MEDS: RIFAXIMIN 550 MG TABLET PO SCH ×2 (11:19→21:10)
[2017-02-18] MEDS: TAMSULOSIN 0.4 MG CAP.ER.24H PO SCH (11:19)
[2017-02-18] MEDS: FAMOTIDINE 20 MG TABLET PO SCH ×2 (11:19→21:10)
[2017-02-18] MEDS: SODIUM CHLORIDE FLUSH 10ML SYR IVF SCH ×2 (11:26→21:13)
[2017-02-18] MEDS: SIMVASTATIN 40 MG TABLET PO SCH (21:12)
[2017-02-18] MEDS: ENOXAPARIN 40 MG/0.4 ML SQ SCH (21:14)
[2017-02-19 04:30] LABS: BASOPHILS # (AUTO) 0.01 x10^3/uL (0-0.1); BASOPHILS % (AUTO) 0 % (0-1); EOSINOPHILS # (AUTO) 0.76 x10^3/uL (0-0.4); EOSINOPHILS % (AUTO) 7 % (1-7); LYMPHOCYTES # (AUTO) 2.03 x10^3/uL (1-3.4); LYMPHOCYTES % (AUTO) 18 % (22-44); MD NO; MEAN CORPUSCULAR HGB CONC 31.3 g/dL (33.2-36.2); MEAN PLATELET VOLUME 7.1 fL (7.4-10.4); MONOCYTES # (AUTO) 0.49 x10^3/uL (0.2-0.8); MONOCYTES % (AUTO) 5 % (2-9); NEUTROPHILS # (AUTO) 7.76 x10^3/uL (1.8-6.8); NEUTROPHILS % (AUTO) 70 % (42-75); PLATELET COUNT 158 x10^3/uL (130-400); RED BLOOD COUNT 3.98 x10^6/uL (4.38-5.82); RED CELL DISTRIBUTION WIDTH 16.3 % (9.4-14.8)
[2017-02-19 04:34] LABS: ALBUMIN 1.7 g/dL (3.4-5.0); ANION GAP 1 mmol/L (5-15); CALCIUM 7.8 mg/dL (8.5-10.1); CHLORIDE 106 mmol/L (98-107)
[2017-02-19 04:37] LABS: CREATININE 0.52 mg/dL (0.7-1.3)
[2017-02-19 04:38] LABS: ALANINE AMINOTRANSFERASE 24 U/L (12-78); ALKALINE PHOSPHATASE 72 U/L (45-117)
[2017-02-19] MEDS: SODIUM CHLORIDE 0.9% 1,000 ML IV SCH (04:40)
[2017-02-19] MEDS: LACTULOSE 20 GM/30 ML UDC PO SCH ×3 (05:56→20:14)
[2017-02-19 08:00] VITALS: BP 146/71
[2017-02-19] MEDS: SODIUM CHLORIDE FLUSH 10ML SYR IVF SCH ×2 (08:49→20:14)
[2017-02-19] MEDS ORDERED: MAGNESIUM SULFATE PMX 4GM/100M 100 ML IVPB ONE (09:00)
[2017-02-19] MEDS: TAMSULOSIN 0.4 MG CAP.ER.24H PO SCH (09:02)
[2017-02-19] MEDS: RIFAXIMIN 550 MG TABLET PO SCH ×2 (09:02→20:14)
[2017-02-19] MEDS: FAMOTIDINE 20 MG TABLET PO SCH ×2 (09:02→20:14)
[2017-02-19 12:10] VITALS: BP 106/92
[2017-02-19] MEDS: HYDROcodone/APAP 5/325 TABLET PO PRN (12:15)
[2017-02-19 14:21] VITALS: BP 136/75
[2017-02-19 20:07] VITALS: BP 119/69
[2017-02-19] MEDS: ENOXAPARIN 40 MG/0.4 ML SQ SCH (20:14)
[2017-02-19] MEDS: SIMVASTATIN 40 MG TABLET PO SCH (20:14)
[2017-02-19] MEDS: ONDANSETRON 2MG/ML, 2ML IVPush PRN (23:26)
[2017-02-20 03:16] VITALS: BP 103/51
[2017-02-20 05:13] LABS: BASOPHILS # (AUTO) 0.04 x10^3/uL (0-0.1); BASOPHILS % (AUTO) 0 % (0-1); EOSINOPHILS % (AUTO) 3 % (1-7); LYMPHOCYTES # (AUTO) 2.02 x10^3/uL (1-3.4); LYMPHOCYTES % (AUTO) 16 % (22-44); MD NO; MEAN CORPUSCULAR HEMOGLOBIN 30.7 pg (27.5-34.5); MEAN CORPUSCULAR VOLUME 95.8 fL (81-97); MEAN PLATELET VOLUME 7.2 fL (7.4-10.4); MONOCYTES # (AUTO) 0.95 x10^3/uL (0.2-0.8); MONOCYTES % (AUTO) 7 % (2-9); NEUTROPHILS # (AUTO) 9.57 x10^3/uL (1.8-6.8); NEUTROPHILS % (AUTO) 74 % (42-75); PLATELET COUNT 167 x10^3/uL (130-400); RED BLOOD COUNT 4.21 x10^6/uL (4.38-5.82); RED CELL DISTRIBUTION WIDTH 16.1 % (9.4-14.8)
[2017-02-20 05:22] LABS: ANION GAP 2 mmol/L (5-15); CHLORIDE 105 mmol/L (98-107); CREATININE 0.58 mg/dL (0.7-1.3)
[2017-02-20 08:37] VITALS: BP 109/64
[2017-02-20] MEDS: FAMOTIDINE 20 MG TABLET PO SCH ×2 (09:26→19:50)
[2017-02-20] MEDS: TAMSULOSIN 0.4 MG CAP.ER.24H PO SCH (09:26)
[2017-02-20] MEDS: LACTULOSE 20 GM/30 ML UDC PO SCH ×3 (09:26→19:59)
[2017-02-20] MEDS: RIFAXIMIN 550 MG TABLET PO SCH ×2 (09:26→19:50)
[2017-02-20] MEDS: SODIUM CHLORIDE FLUSH 10ML SYR IVF SCH ×2 (09:33→19:50)
[2017-02-20] MEDS ORDERED: POTASSIUM CHLORIDE 20 MEQ TAB.ER.PRT PO ONE (12:30)
[2017-02-20 15:15] VITALS: BP 108/66
[2017-02-20] MEDS: ENOXAPARIN 40 MG/0.4 ML SQ SCH (19:50)
[2017-02-20] MEDS: SIMVASTATIN 40 MG TABLET PO SCH (19:50)
[2017-02-20 19:52] VITALS: BP 111/66
[2017-02-21 00:28] VITALS: BP 98/56
[2017-02-21 04:46] LABS: BASOPHILS # (AUTO) 0.02 x10^3/uL (0-0.1); BASOPHILS % (AUTO) 0 % (0-1); EOSINOPHILS # (AUTO) 0.33 x10^3/uL (0-0.4); EOSINOPHILS % (AUTO) 3 % (1-7); LYMPHOCYTES % (AUTO) 15 % (22-44); MD NO; MEAN CORPUSCULAR HEMOGLOBIN 30.9 pg (27.5-34.5); MEAN CORPUSCULAR HGB CONC 32.1 g/dL (33.2-36.2); MEAN CORPUSCULAR VOLUME 96.3 fL (81-97); MEAN PLATELET VOLUME 7.4 fL (7.4-10.4); MONOCYTES # (AUTO) 1.01 x10^3/uL (0.2-0.8); MONOCYTES % (AUTO) 9 % (2-9); NEUTROPHILS # (AUTO) 8.65 x10^3/uL (1.8-6.8); NEUTROPHILS % (AUTO) 73 % (42-75); PLATELET COUNT 174 x10^3/uL (130-400); RED BLOOD COUNT 3.97 x10^6/uL (4.38-5.82)
[2017-02-21 04:52] LABS: INTERNATIONAL NORMALIZED RATIO 1.12 (0.93-1.1); PROTHROMBIN TIME 11.6 Seconds (9.6-11.5)
[2017-02-21 04:58] LABS: ANION GAP 1 mmol/L (5-15); CALCIUM 8.3 mg/dL (8.5-10.1); CHLORIDE 105 mmol/L (98-107); CREATININE 0.55 mg/dL (0.7-1.3)
[2017-02-21 06:51] VITALS: BP 109/66
[2017-02-21] MEDS: SODIUM CHLORIDE FLUSH 10ML SYR IVF SCH ×2 (09:00→21:00)
[2017-02-21] MEDS: LACTULOSE 20 GM/30 ML UDC PO SCH ×2 (09:11→21:43)
[2017-02-21] MEDS: FAMOTIDINE 20 MG TABLET PO SCH ×2 (09:11→21:43)
[2017-02-21] MEDS: TAMSULOSIN 0.4 MG CAP.ER.24H PO SCH (09:11)
[2017-02-21] MEDS: RIFAXIMIN 550 MG TABLET PO SCH ×2 (09:11→21:43)
[2017-02-21 14:15] VITALS: BP 97/56
[2017-02-21] MEDS ORDERED: POTASSIUM CHLORIDE 20 MEQ TAB.ER.PRT PO ONE (14:30)
[2017-02-21 20:00] VITALS: BP 105/64
[2017-02-21] MEDS ORDERED: ONDANSETRON ODT 4 MG ONE (21:41)
[2017-02-21] MEDS: ENOXAPARIN 40 MG/0.4 ML SQ SCH (21:43)
[2017-02-21] MEDS: SIMVASTATIN 40 MG TABLET PO SCH (21:43)
[2017-02-21] MEDS: ONDANSETRON 2MG/ML, 2ML IVPush PRN (21:44)
[2017-02-21 23:31] VITALS: BP 105/64
[2017-02-22 03:00] VITALS: BP 102/59
[2017-02-22 05:36] LABS: BASOPHILS # (AUTO) 0.02 x10^3/uL (0-0.1); BASOPHILS % (AUTO) 0 % (0-1); EOSINOPHILS # (AUTO) 0.66 x10^3/uL (0-0.4); EOSINOPHILS % (AUTO) 6 % (1-7); LYMPHOCYTES % (AUTO) 12 % (22-44); MD NO; MEAN CORPUSCULAR HGB CONC 32.4 g/dL (33.2-36.2); MEAN CORPUSCULAR VOLUME 95.7 fL (81-97); MEAN PLATELET VOLUME 7.1 fL (7.4-10.4); MONOCYTES % (AUTO) 7 % (2-9); NEUTROPHILS # (AUTO) 8.17 x10^3/uL (1.8-6.8); NEUTROPHILS % (AUTO) 75 % (42-75); PLATELET COUNT 191 x10^3/uL (130-400); RED BLOOD COUNT 3.61 x10^6/uL (4.38-5.82); RED CELL DISTRIBUTION WIDTH 16.5 % (9.4-14.8)
[2017-02-22 05:48] LABS: ANION GAP 2 mmol/L (5-15); CALCIUM 7.8 mg/dL (8.5-10.1); CHLORIDE 103 mmol/L (98-107); CREATININE 0.44 mg/dL (0.7-1.3)
[2017-02-22 07:18] VITALS: BP 117/64
[2017-02-22] MEDS: SODIUM CHLORIDE FLUSH 10ML SYR IVF SCH ×2 (09:00→22:11)
[2017-02-22] MEDS: RIFAXIMIN 550 MG TABLET PO SCH ×2 (09:17→22:12)
[2017-02-22] MEDS: FAMOTIDINE 20 MG TABLET PO SCH ×2 (09:17→22:12)
[2017-02-22] MEDS: LACTULOSE 20 GM/30 ML UDC PO SCH ×2 (09:17→22:12)
[2017-02-22] MEDS: TAMSULOSIN 0.4 MG CAP.ER.24H PO SCH (09:17)
[2017-02-22 14:09] VITALS: BP 189/93
[2017-02-22] MEDS ORDERED: POTASSIUM CHLORIDE 20 MEQ TAB.ER.PRT PO ONE (15:30)
[2017-02-22 19:38] VITALS: BP 126/64
[2017-02-22] MEDS: ENOXAPARIN 40 MG/0.4 ML SQ SCH (22:11)
[2017-02-22] MEDS: SIMVASTATIN 40 MG TABLET PO SCH (22:11)
[2017-02-23 00:56] VITALS: BP 113/58
[2017-02-23 05:03] LABS: BASOPHILS # (AUTO) 0.01 x10^3/uL (0-0.1); BASOPHILS % (AUTO) 0 % (0-1); EOSINOPHILS # (AUTO) 0.49 x10^3/uL (0-0.4); EOSINOPHILS % (AUTO) 6 % (1-7); LYMPHOCYTES # (AUTO) 1.83 x10^3/uL (1-3.4); LYMPHOCYTES % (AUTO) 21 % (22-44); MD NO; MEAN CORPUSCULAR HEMOGLOBIN 30.7 pg (27.5-34.5); MEAN CORPUSCULAR HGB CONC 32.3 g/dL (33.2-36.2); MEAN PLATELET VOLUME 7.2 fL (7.4-10.4); MONOCYTES # (AUTO) 1.08 x10^3/uL (0.2-0.8); MONOCYTES % (AUTO) 12 % (2-9); NEUTROPHILS # (AUTO) 5.44 x10^3/uL (1.8-6.8); NEUTROPHILS % (AUTO) 61 % (42-75); PLATELET COUNT 212 x10^3/uL (130-400); RED BLOOD COUNT 3.63 x10^6/uL (4.38-5.82); RED CELL DISTRIBUTION WIDTH 16.4 % (9.4-14.8)
[2017-02-23 05:23] LABS: CHLORIDE 102 mmol/L (98-107)
[2017-02-23 05:29] LABS: ANION GAP 6 mmol/L (5-15); CREATININE 0.49 mg/dL (0.7-1.3)
[2017-02-23 06:55] VITALS: BP 126/68
[2017-02-23] MEDS: SODIUM CHLORIDE FLUSH 10ML SYR IVF SCH ×2 (09:00→22:04)
[2017-02-23] MEDS: RIFAXIMIN 550 MG TABLET PO SCH ×3 (10:00→22:04)
[2017-02-23] MEDS: FAMOTIDINE 20 MG TABLET PO SCH ×3 (10:00→22:04)
[2017-02-23] MEDS: LACTULOSE 20 GM/30 ML UDC PO SCH ×3 (10:00→22:04)
[2017-02-23] MEDS: TAMSULOSIN 0.4 MG CAP.ER.24H PO SCH (10:00)
[2017-02-23] MEDS ORDERED: MAGNESIUM SULFATE PMX 4GM/100M 100 ML IV ONE (12:00)
[2017-02-23 12:07] VITALS: BP 126/70
[2017-02-23 20:10] VITALS: BP 103/65
[2017-02-23] MEDS: SIMVASTATIN 40 MG TABLET PO SCH ×2 (22:03→22:04)
[2017-02-23] MEDS: ENOXAPARIN 40 MG/0.4 ML SQ SCH (22:04)
[2017-02-23] MEDS: POTASSIUM CHLORIDE 20 MEQ TAB.ER.PRT PO SCH (22:04)
[2017-02-24 01:50] VITALS: BP 122/72
[2017-02-24 05:44] LABS: BASOPHILS # (AUTO) 0.01 x10^3/uL (0-0.1); BASOPHILS % (AUTO) 0 % (0-1); EOSINOPHILS # (AUTO) 0.18 x10^3/uL (0-0.4); EOSINOPHILS % (AUTO) 2 % (1-7); LYMPHOCYTES # (AUTO) 1.59 x10^3/uL (1-3.4); LYMPHOCYTES % (AUTO) 19 % (22-44); MD NO; MEAN CORPUSCULAR HEMOGLOBIN 30.5 pg (27.5-34.5); MEAN CORPUSCULAR HGB CONC 31.8 g/dL (33.2-36.2); MEAN CORPUSCULAR VOLUME 95.9 fL (81-97); MEAN PLATELET VOLUME 7.1 fL (7.4-10.4); MONOCYTES % (AUTO) 13 % (2-9); NEUTROPHILS # (AUTO) 5.43 x10^3/uL (1.8-6.8); NEUTROPHILS % (AUTO) 65 % (42-75); PLATELET COUNT 237 x10^3/uL (130-400); RED CELL DISTRIBUTION WIDTH 17.2 % (9.4-14.8)
[2017-02-24 05:53] LABS: ALANINE AMINOTRANSFERASE 17 U/L (12-78); ALBUMIN 1.8 g/dL (3.4-5.0); ANION GAP 3 mmol/L (5-15); CALCIUM 7.4 mg/dL (8.5-10.1); CHLORIDE 99 mmol/L (98-107); CREATININE 0.53 mg/dL (0.7-1.3)
[2017-02-24 05:55] LABS: ALKALINE PHOSPHATASE 63 U/L (45-117); BILIRUBIN,TOTAL 0.6 mg/dL (0.2-1.0); TOTAL PROTEIN 6.3 g/dL (6.4-8.2)
[2017-02-24 07:35] VITALS: BP 117/67
[2017-02-24] MEDS ORDERED: POTASSIUM PHOSPHATE 22 MEQ in SODIUM CHLORIDE 0.9% 500 ML IV ONE (11:00)
[2017-02-24] MEDS: NS + 40MEQ KCL 1,000 ML IV SCH ×2 (11:33→20:51)
[2017-02-24] MEDS: FAMOTIDINE 20 MG TABLET PO SCH ×2 (11:33→21:12)
[2017-02-24] MEDS: SODIUM CHLORIDE FLUSH 10ML SYR IVF SCH ×2 (11:33→21:19)
[2017-02-24] MEDS: RIFAXIMIN 550 MG TABLET PO SCH ×2 (11:33→21:12)
[2017-02-24] MEDS: TAMSULOSIN 0.4 MG CAP.ER.24H PO SCH (11:33)
[2017-02-24] MEDS: POTASSIUM CHLORIDE 20 MEQ TAB.ER.PRT PO SCH ×2 (11:33→16:34)
[2017-02-24] MEDS: LACTULOSE 20 GM/30 ML UDC PO SCH ×2 (11:33→21:11)
[2017-02-24 12:21] VITALS: BP 130/69
[2017-02-24] MEDS: HYDROcodone/APAP 5/325 TABLET PO PRN (16:33)
[2017-02-24 18:55] VITALS: BP 117/61
[2017-02-24] MEDS: ENOXAPARIN 40 MG/0.4 ML SQ SCH (21:11)
[2017-02-24] MEDS: SIMVASTATIN 40 MG TABLET PO SCH (21:12)
[2017-02-25 02:22] VITALS: BP 103/57
[2017-02-25] MEDS: HYDROcodone/APAP 5/325 TABLET PO PRN ×2 (03:19→21:29)
[2017-02-25 05:54] LABS: BASOPHILS # (AUTO) 0.01 x10^3/uL (0-0.1); BASOPHILS % (AUTO) 0 % (0-1); EOSINOPHILS # (AUTO) 0.43 x10^3/uL (0-0.4); EOSINOPHILS % (AUTO) 5 % (1-7); LYMPHOCYTES # (AUTO) 1.81 x10^3/uL (1-3.4); LYMPHOCYTES % (AUTO) 19 % (22-44); MD NO; MEAN CORPUSCULAR HEMOGLOBIN 30.7 pg (27.5-34.5); MEAN CORPUSCULAR HGB CONC 31.9 g/dL (33.2-36.2); MEAN CORPUSCULAR VOLUME 96.2 fL (81-97); MEAN PLATELET VOLUME 7.1 fL (7.4-10.4); MONOCYTES # (AUTO) 1.24 x10^3/uL (0.2-0.8); MONOCYTES % (AUTO) 13 % (2-9); NEUTROPHILS # (AUTO) 5.86 x10^3/uL (1.8-6.8); NEUTROPHILS % (AUTO) 63 % (42-75); PLATELET COUNT 240 x10^3/uL (130-400); RED BLOOD COUNT 3.94 x10^6/uL (4.38-5.82); RED CELL DISTRIBUTION WIDTH 17.1 % (9.4-14.8)
[2017-02-25 06:04] LABS: ANION GAP 3 mmol/L (5-15); CHLORIDE 105 mmol/L (98-107)
[2017-02-25 06:07] LABS: CREATININE 0.47 mg/dL (0.7-1.3)
[2017-02-25] MEDS: ALBUTEROL/IPRATROPIUM 2.5MG/0.5MG, 3 ML NPPB PRN (07:08)
[2017-02-25 07:22] VITALS: BP 122/66
[2017-02-25] MEDS ORDERED: FUROSEMIDE 20 MG/2 ML IV ONE ×2 (07:30→09:00)
[2017-02-25 08:46] LABS: TROPONIN I 0.021 ng/mL (0.000-0.045)
[2017-02-25] MEDS ORDERED: POTASSIUM CHLORIDE 20 MEQ TAB.ER.PRT PO ONE (09:00)
[2017-02-25] MEDS: POTASSIUM CHLORIDE 20 MEQ TAB.ER.PRT PO SCH (09:18)
[2017-02-25] MEDS: LACTULOSE 20 GM/30 ML UDC PO SCH ×2 (09:21→21:04)
[2017-02-25] MEDS: SODIUM CHLORIDE FLUSH 10ML SYR IVF SCH ×2 (09:21→21:04)
[2017-02-25] MEDS: RIFAXIMIN 550 MG TABLET PO SCH ×2 (09:21→21:04)
[2017-02-25] MEDS: TAMSULOSIN 0.4 MG CAP.ER.24H PO SCH (09:21)
[2017-02-25] MEDS: FAMOTIDINE 20 MG TABLET PO SCH ×2 (09:21→21:04)
[2017-02-25] MEDS: MAGNESIUM OXIDE 400 MG TABLET PO SCH ×2 (10:33→21:05)
[2017-02-25 13:01] VITALS: BP 116/74
[2017-02-25 19:16] VITALS: BP 115/41
[2017-02-25] MEDS: SIMVASTATIN 40 MG TABLET PO SCH (21:04)
[2017-02-25] MEDS: ENOXAPARIN 40 MG/0.4 ML SQ SCH (21:05)
[2017-02-26] MEDS: ALBUTEROL/IPRATROPIUM 2.5MG/0.5MG, 3 ML NPPB PRN ×2 (01:40→10:16)
[2017-02-26 02:14] VITALS: BP 108/64
[2017-02-26 05:33] LABS: BASOPHILS # (AUTO) 0.03 x10^3/uL (0-0.1); BASOPHILS % (AUTO) 0 % (0-1); EOSINOPHILS # (AUTO) 0.32 x10^3/uL (0-0.4); EOSINOPHILS % (AUTO) 3 % (1-7); LYMPHOCYTES # (AUTO) 2.64 x10^3/uL (1-3.4); LYMPHOCYTES % (AUTO) 26 % (22-44); MD NO; MEAN CORPUSCULAR HEMOGLOBIN 30.6 pg (27.5-34.5); MEAN CORPUSCULAR HGB CONC 31.5 g/dL (33.2-36.2); MEAN CORPUSCULAR VOLUME 97.1 fL (81-97); MEAN PLATELET VOLUME 7.9 fL (7.4-10.4); MONOCYTES # (AUTO) 1.31 x10^3/uL (0.2-0.8); MONOCYTES % (AUTO) 13 % (2-9); NEUTROPHILS # (AUTO) 5.73 x10^3/uL (1.8-6.8); NEUTROPHILS % (AUTO) 57 % (42-75); PLATELET COUNT 276 x10^3/uL (130-400); RED BLOOD COUNT 4.12 x10^6/uL (4.38-5.82); RED CELL DISTRIBUTION WIDTH 17.1 % (9.4-14.8)
[2017-02-26 05:40] LABS: ANION GAP 1 mmol/L (5-15); CALCIUM 8.2 mg/dL (8.5-10.1); CHLORIDE 100 mmol/L (98-107); CREATININE 0.58 mg/dL (0.7-1.3)
[2017-02-26 08:30] VITALS: BP 128/78
[2017-02-26] MEDS ORDERED: AcetaZOLAMIDE INJ 500 MG IVPush ONE (09:00)
[2017-02-26] MEDS: TAMSULOSIN 0.4 MG CAP.ER.24H PO SCH (09:17)
[2017-02-26] MEDS: LACTULOSE 20 GM/30 ML UDC PO SCH ×2 (09:17→23:50)
[2017-02-26] MEDS: FLUOXETINE 10 MG CAP PO SCH (09:17)
[2017-02-26] MEDS: RIFAXIMIN 550 MG TABLET PO SCH ×2 (09:17→23:50)
[2017-02-26] MEDS: SODIUM CHLORIDE FLUSH 10ML SYR IVF SCH ×2 (09:17→23:49)
[2017-02-26] MEDS: FAMOTIDINE 20 MG TABLET PO SCH ×2 (09:17→23:50)
[2017-02-26] MEDS ORDERED: FUROSEMIDE 40 MG/4 ML IV ONE (11:00)
[2017-02-26 14:04] VITALS: BP 108/66
[2017-02-26 21:01] VITALS: BP 104/69
[2017-02-26] MEDS: SIMVASTATIN 40 MG TABLET PO SCH (23:50)
[2017-02-26] MEDS: HYDROcodone/APAP 5/325 TABLET PO PRN (23:54)
[2017-02-26] MEDS: ENOXAPARIN 30 MG/0.3 ML SQ SCH (23:54)
[2017-02-27 03:25] VITALS: BP 90/54
[2017-02-27 07:26] LABS: ANION GAP 2 mmol/L (5-15); CALCIUM 8.6 mg/dL (8.5-10.1); CHLORIDE 99 mmol/L (98-107)
[2017-02-27 07:29] VITALS: BP 107/68
[2017-02-27] MEDS: TAMSULOSIN 0.4 MG CAP.ER.24H PO SCH (09:00)
[2017-02-27] MEDS: LACTULOSE 20 GM/30 ML UDC PO SCH ×2 (10:05→21:25)
[2017-02-27] MEDS: FAMOTIDINE 20 MG TABLET PO SCH ×2 (10:05→21:25)
[2017-02-27] MEDS: FLUOXETINE 10 MG CAP PO SCH (10:05)
[2017-02-27] MEDS: ENOXAPARIN 30 MG/0.3 ML SQ SCH ×2 (10:05→21:24)
[2017-02-27] MEDS: RIFAXIMIN 550 MG TABLET PO SCH ×2 (10:05→21:25)
[2017-02-27] MEDS: AcetaZOLAMIDE INJ 500 MG IVPush SCH ×2 (10:06→21:26)
[2017-02-27] MEDS: SODIUM CHLORIDE FLUSH 10ML SYR IVF SCH ×2 (10:06→21:45)
[2017-02-27] MEDS: ALBUTEROL/IPRATROPIUM 2.5MG/0.5MG, 3 ML NPPB PRN (10:37)
[2017-02-27 12:42] VITALS: BP 113/67
[2017-02-27] MEDS: ALBUTEROL/IPRATROPIUM 2.5MG/0.5MG, 3 ML NPPB SCH ×2 (14:42→20:07)
[2017-02-27 18:57] VITALS: BP 116/84
[2017-02-27] MEDS: SIMVASTATIN 40 MG TABLET PO SCH (21:26)
[2017-02-28 02:03] VITALS: BP 112/73
[2017-02-28] MEDS: ALBUTEROL/IPRATROPIUM 2.5MG/0.5MG, 3 ML NPPB SCH ×4 (07:00→20:00)
[2017-02-28 07:29] VITALS: BP 106/65
[2017-02-28] MEDS: TAMSULOSIN 0.4 MG CAP.ER.24H PO SCH (09:25)
[2017-02-28] MEDS: AcetaZOLAMIDE INJ 500 MG IVPush SCH ×2 (09:25→20:55)
[2017-02-28] MEDS: ENOXAPARIN 30 MG/0.3 ML SQ SCH ×2 (09:25→20:53)
[2017-02-28] MEDS: FLUOXETINE 10 MG CAP PO SCH (09:25)
[2017-02-28] MEDS: SODIUM CHLORIDE FLUSH 10ML SYR IVF SCH ×2 (09:25→20:52)
[2017-02-28] MEDS: LACTULOSE 20 GM/30 ML UDC PO SCH ×2 (09:25→21:00)
[2017-02-28] MEDS: RIFAXIMIN 550 MG TABLET PO SCH ×2 (09:25→20:52)
[2017-02-28] MEDS: FAMOTIDINE 20 MG TABLET PO SCH ×2 (09:25→20:53)
[2017-02-28 09:30] LABS: BASOPHILS # (AUTO) 0.07 x10^3/uL (0-0.1); BASOPHILS % (AUTO) 1 % (0-1); EOSINOPHILS # (AUTO) 0.36 x10^3/uL (0-0.4); EOSINOPHILS % (AUTO) 3 % (1-7); LYMPHOCYTES # (AUTO) 2.58 x10^3/uL (1-3.4); LYMPHOCYTES % (AUTO) 21 % (22-44); MD NO; MEAN CORPUSCULAR HEMOGLOBIN 30.5 pg (27.5-34.5); MEAN CORPUSCULAR HGB CONC 31.5 g/dL (33.2-36.2); MEAN CORPUSCULAR VOLUME 96.9 fL (81-97); MEAN PLATELET VOLUME 7.4 fL (7.4-10.4); MONOCYTES # (AUTO) 1.33 x10^3/uL (0.2-0.8); MONOCYTES % (AUTO) 11 % (2-9); NEUTROPHILS # (AUTO) 8.17 x10^3/uL (1.8-6.8); NEUTROPHILS % (AUTO) 65 % (42-75); O2 FLOW 2 L/min; PLATELET COUNT 241 x10^3/uL (130-400); RED BLOOD COUNT 3.75 x10^6/uL (4.38-5.82); RED CELL DISTRIBUTION WIDTH 17.4 % (9.4-14.8)
[2017-02-28 09:34] LABS: ALANINE AMINOTRANSFERASE 15 U/L (12-78); ALBUMIN 1.8 g/dL (3.4-5.0); ANION GAP 5 mmol/L (5-15); CALCIUM 8.2 mg/dL (8.5-10.1); CHLORIDE 101 mmol/L (98-107); CREATININE 0.48 mg/dL (0.7-1.3)
[2017-02-28 09:36] LABS: ALKALINE PHOSPHATASE 81 U/L (45-117); BILIRUBIN,TOTAL 0.6 mg/dL (0.2-1.0); TOTAL PROTEIN 6.9 g/dL (6.4-8.2)
[2017-02-28 13:10] VITALS: BP 120/70
[2017-02-28] MEDS: POTASSIUM CHLORIDE 20 MEQ TAB.ER.PRT PO SCH ×2 (13:13→17:00)
[2017-02-28 18:34] VITALS: BP 125/78
[2017-02-28] MEDS: SIMVASTATIN 40 MG TABLET PO SCH (20:53)
[2017-02-28] MEDS: ACETAMINOPHEN 325 MG TABLET PO PRN (20:59)
[2017-03-01 01:37] VITALS: BP 114/64
[2017-03-01 05:50] LABS: MEAN CORPUSCULAR HEMOGLOBIN 30.5 pg (27.5-34.5); MEAN CORPUSCULAR HGB CONC 31.8 g/dL (33.2-36.2); MEAN CORPUSCULAR VOLUME 95.9 fL (81-97); MEAN PLATELET VOLUME 7.3 fL (7.4-10.4); PLATELET COUNT 271 x10^3/uL (130-400); RED BLOOD COUNT 3.72 x10^6/uL (4.38-5.82); RED CELL DISTRIBUTION WIDTH 16.6 % (9.4-14.8)
[2017-03-01 05:57] LABS: CHLORIDE 103 mmol/L (98-107)
[2017-03-01 06:13] LABS: ALANINE AMINOTRANSFERASE 18 U/L (12-78); ALBUMIN 1.9 g/dL (3.4-5.0); ALKALINE PHOSPHATASE 84 U/L (45-117); ANION GAP 5 mmol/L (5-15); BILIRUBIN,TOTAL 0.6 mg/dL (0.2-1.0); CALCIUM 8.5 mg/dL (8.5-10.1); CREATININE 0.56 mg/dL (0.7-1.3)
[2017-03-01 06:15] LABS: BASOPHILS # (AUTO) 0.04 x10^3/uL (0-0.1); BASOPHILS % (AUTO) 0 % (0-1); EOSINOPHILS # (AUTO) 0.28 x10^3/uL (0-0.4); EOSINOPHILS % (AUTO) 2 % (1-7); LYMPHOCYTES # (AUTO) 2.97 x10^3/uL (1-3.4); LYMPHOCYTES % (AUTO) 21 % (22-44); MD SCAN; MONOCYTES # (AUTO) 1.52 x10^3/uL (0.2-0.8); MONOCYTES % (AUTO) 11 % (2-9); NEUTROPHILS # (AUTO) 9.59 x10^3/uL (1.8-6.8); NEUTROPHILS % (AUTO) 67 % (42-75)
[2017-03-01] MEDS: RIFAXIMIN 550 MG TABLET PO SCH ×2 (08:12→21:43)
[2017-03-01] MEDS: SODIUM CHLORIDE FLUSH 10ML SYR IVF SCH ×2 (08:12→21:43)
[2017-03-01] MEDS: ENOXAPARIN 30 MG/0.3 ML SQ SCH ×2 (08:12→21:43)
[2017-03-01] MEDS: LACTULOSE 20 GM/30 ML UDC PO SCH ×2 (08:12→21:43)
[2017-03-01] MEDS: FAMOTIDINE 20 MG TABLET PO SCH ×2 (08:12→21:42)
[2017-03-01] MEDS: POTASSIUM CHLORIDE 20 MEQ TAB.ER.PRT PO SCH ×3 (08:12→17:37)
[2017-03-01] MEDS: FLUOXETINE 10 MG CAP PO SCH (08:12)
[2017-03-01 08:27] VITALS: BP 117/63
[2017-03-01] MEDS: ALBUTEROL/IPRATROPIUM 2.5MG/0.5MG, 3 ML NPPB SCH ×4 (08:43→20:55)
[2017-03-01] MEDS ORDERED: MAGNESIUM SULFATE PMX 2GM/50ML 50 ML IV ONE (09:00)
[2017-03-01] MEDS: TAMSULOSIN 0.4 MG CAP.ER.24H PO SCH (09:47)
[2017-03-01 13:44] VITALS: BP 105/57
[2017-03-01 20:00] VITALS: BP 123/64
[2017-03-01] MEDS: SIMVASTATIN 40 MG TABLET PO SCH (21:42)
[2017-03-02 01:32] VITALS: BP 103/49
[2017-03-02] MEDS: ALBUTEROL/IPRATROPIUM 2.5MG/0.5MG, 3 ML NPPB SCH ×4 (06:35→21:20)
[2017-03-02 07:22] LABS: MEAN CORPUSCULAR HEMOGLOBIN 30.3 pg (27.5-34.5); MEAN CORPUSCULAR HGB CONC 31.6 g/dL (33.2-36.2); MEAN PLATELET VOLUME 7.5 fL (7.4-10.4); PLATELET COUNT 287 x10^3/uL (130-400); RED BLOOD COUNT 3.55 x10^6/uL (4.38-5.82); RED CELL DISTRIBUTION WIDTH 17.4 % (9.4-14.8)
[2017-03-02 07:35] LABS: ANION GAP 4 mmol/L (5-15); CALCIUM 8.4 mg/dL (8.5-10.1); CHLORIDE 105 mmol/L (98-107); CREATININE 0.61 mg/dL (0.7-1.3)
[2017-03-02 07:39] VITALS: BP 100/60
[2017-03-02] MEDS: ENOXAPARIN 30 MG/0.3 ML SQ SCH ×2 (07:53→22:13)
[2017-03-02] MEDS: POTASSIUM CHLORIDE 20 MEQ TAB.ER.PRT PO SCH ×3 (07:54→16:05)
[2017-03-02] MEDS: TAMSULOSIN 0.4 MG CAP.ER.24H PO SCH (07:54)
[2017-03-02] MEDS: RIFAXIMIN 550 MG TABLET PO SCH ×2 (07:54→22:12)
[2017-03-02] MEDS: FLUOXETINE 10 MG CAP PO SCH (07:54)
[2017-03-02] MEDS: LACTULOSE 20 GM/30 ML UDC PO SCH ×2 (07:54→22:12)
[2017-03-02] MEDS: SODIUM CHLORIDE FLUSH 10ML SYR IVF SCH ×2 (07:54→22:12)
[2017-03-02] MEDS: FAMOTIDINE 20 MG TABLET PO SCH ×2 (07:54→22:12)
[2017-03-02 08:24] LABS: BASOPHILS # (AUTO) 0.05 x10^3/uL (0-0.1); BASOPHILS % (AUTO) 0 % (0-1); EOSINOPHILS # (AUTO) 0.34 x10^3/uL (0-0.4); EOSINOPHILS % (AUTO) 2 % (1-7); LYMPHOCYTES # (AUTO) 2.66 x10^3/uL (1-3.4); LYMPHOCYTES % (AUTO) 18 % (22-44); MD SCAN; MONOCYTES # (AUTO) 1.37 x10^3/uL (0.2-0.8); MONOCYTES % (AUTO) 9 % (2-9); NEUTROPHILS # (AUTO) 10.59 x10^3/uL (1.8-6.8); NEUTROPHILS % (AUTO) 71 % (42-75)
[2017-03-02] MEDS ORDERED: MAGNESIUM SULFATE PMX 2GM/50ML 50 ML IV ONE (11:00)
[2017-03-02 15:10] VITALS: BP 113/66
[2017-03-02 16:21] LABS: MICROSCOPIC INDICATED
[2017-03-02 16:22] LABS: CULTURE INDICATED? YES
[2017-03-02 20:00] VITALS: BP 120/72
[2017-03-02] MEDS: SULFAMETH./TRIMETHOPRIM DS 800MG/160MG TABLET PO SCH (22:12)
[2017-03-02] MEDS: SIMVASTATIN 40 MG TABLET PO SCH (22:13)
[2017-03-03 01:58] VITALS: BP 122/71
[2017-03-03 05:47] LABS: MEAN CORPUSCULAR HEMOGLOBIN 30.6 pg (27.5-34.5); MEAN CORPUSCULAR HGB CONC 31.9 g/dL (33.2-36.2); MEAN CORPUSCULAR VOLUME 95.9 fL (81-97); MEAN PLATELET VOLUME 7.3 fL (7.4-10.4); PLATELET COUNT 306 x10^3/uL (130-400); RED BLOOD COUNT 3.77 x10^6/uL (4.38-5.82)
[2017-03-03 05:54] LABS: CHLORIDE 108 mmol/L (98-107)
[2017-03-03 05:59] LABS: ANION GAP 1 mmol/L (5-15); CALCIUM 8.7 mg/dL (8.5-10.1); CREATININE 0.52 mg/dL (0.7-1.3)
[2017-03-03 06:19] LABS: MD YES
[2017-03-03 06:20] LABS: BAND#(MANUAL) 0.48 x10^3/uL; BANDS%(MANUAL) 3 % (0-7); EOS#(MANUAL) 0.48 x10^3/uL (0.0-0.4); EOS% (MANUAL) 3 % (1-7); LYMPHS% (MANUAL) 15 % (22-44); METAMYELOCYTES# (MANUAL) 0.16 x10^3/uL (0-0); METAMYELOCYTES% (MANUAL) 1 % (0-1); MONOS#(MANUAL) 2.56 x10^3/uL (0.3-2.7); MONOS% (MANUAL) 16 % (2-9); MYELOCYTES# (MANUAL) 0.16 x10^3/uL (0-0); MYELOCYTES% (MANUAL) 1 % (0-0); SEG#(MANUAL) 9.76 x10^3/uL (1.8-6.8); SEGS% (MANUAL) 61 % (42-75)
[2017-03-03 06:21] LABS: ANISOCYTOSIS 1+; POLYCHROMASIA 1+
[2017-03-03 06:22] LABS: <PLATELET ESTIMATE> ADEQUATE
[2017-03-03 06:23] LABS: LARGE PLATELETS 1+
[2017-03-03 08:30] VITALS: BP 115/66
[2017-03-03] MEDS: ALBUTEROL/IPRATROPIUM 2.5MG/0.5MG, 3 ML NPPB SCH ×4 (08:30→20:00)
[2017-03-03] MEDS: FAMOTIDINE 20 MG TABLET PO SCH ×2 (09:36→20:46)
[2017-03-03] MEDS: SODIUM CHLORIDE FLUSH 10ML SYR IVF SCH ×2 (09:36→20:45)
[2017-03-03] MEDS: TAMSULOSIN 0.4 MG CAP.ER.24H PO SCH (09:36)
[2017-03-03] MEDS: RIFAXIMIN 550 MG TABLET PO SCH ×2 (09:37→20:46)
[2017-03-03] MEDS: POTASSIUM CHLORIDE 20 MEQ TAB.ER.PRT PO SCH ×2 (09:37→17:54)
[2017-03-03] MEDS: ENOXAPARIN 30 MG/0.3 ML SQ SCH ×2 (09:37→20:46)
[2017-03-03] MEDS: SULFAMETH./TRIMETHOPRIM DS 800MG/160MG TABLET PO SCH ×2 (09:37→20:46)
[2017-03-03] MEDS: FLUOXETINE 10 MG CAP PO SCH (09:37)
[2017-03-03] MEDS: LACTULOSE 20 GM/30 ML UDC PO SCH ×2 (09:37→20:46)
[2017-03-03 13:43] VITALS: BP 105/62
[2017-03-03 18:57] VITALS: BP 121/74
[2017-03-03] MEDS: SIMVASTATIN 40 MG TABLET PO SCH (20:46)
[2017-03-04 01:37] VITALS: BP 128/75
[2017-03-04 05:36] LABS: BASOPHILS # (AUTO) 0.07 x10^3/uL (0-0.1); BASOPHILS % (AUTO) 1 % (0-1); EOSINOPHILS # (AUTO) 0.69 x10^3/uL (0-0.4); EOSINOPHILS % (AUTO) 4 % (1-7); LYMPHOCYTES % (AUTO) 21 % (22-44); MD NO; MEAN CORPUSCULAR HEMOGLOBIN 30.7 pg (27.5-34.5); MEAN CORPUSCULAR HGB CONC 32.1 g/dL (33.2-36.2); MEAN CORPUSCULAR VOLUME 95.7 fL (81-97); MEAN PLATELET VOLUME 7.3 fL (7.4-10.4); MONOCYTES # (AUTO) 1.39 x10^3/uL (0.2-0.8); MONOCYTES % (AUTO) 9 % (2-9); NEUTROPHILS % (AUTO) 65 % (42-75); PLATELET COUNT 306 x10^3/uL (130-400); RED BLOOD COUNT 3.52 x10^6/uL (4.38-5.82); RED CELL DISTRIBUTION WIDTH 17.7 % (9.4-14.8)
[2017-03-04 05:50] LABS: ALBUMIN 1.7 g/dL (3.4-5.0); ANION GAP 3 mmol/L (5-15); CALCIUM 8.2 mg/dL (8.5-10.1); CHLORIDE 108 mmol/L (98-107)
[2017-03-04 05:53] LABS: ALANINE AMINOTRANSFERASE 17 U/L (12-78); ALKALINE PHOSPHATASE 92 U/L (45-117); BILIRUBIN,TOTAL 0.4 mg/dL (0.2-1.0); TOTAL PROTEIN 6.7 g/dL (6.4-8.2)
[2017-03-04] MEDS: ALBUTEROL/IPRATROPIUM 2.5MG/0.5MG, 3 ML NPPB SCH ×4 (07:52→20:00)
[2017-03-04 07:58] VITALS: BP 121/70
[2017-03-04] MEDS: SODIUM CHLORIDE FLUSH 10ML SYR IVF SCH ×2 (09:44→20:46)
[2017-03-04] MEDS: RIFAXIMIN 550 MG TABLET PO SCH ×2 (09:44→20:47)
[2017-03-04] MEDS: LACTULOSE 20 GM/30 ML UDC PO SCH ×2 (09:44→20:47)
[2017-03-04] MEDS: POTASSIUM CHLORIDE 20 MEQ TAB.ER.PRT PO SCH ×2 (09:44→17:08)
[2017-03-04] MEDS: FAMOTIDINE 20 MG TABLET PO SCH ×2 (09:44→20:46)
[2017-03-04] MEDS: SULFAMETH./TRIMETHOPRIM DS 800MG/160MG TABLET PO SCH ×2 (09:44→20:46)
[2017-03-04] MEDS: TAMSULOSIN 0.4 MG CAP.ER.24H PO SCH (09:44)
[2017-03-04] MEDS: FLUOXETINE 10 MG CAP PO SCH (09:44)
[2017-03-04] MEDS: ENOXAPARIN 30 MG/0.3 ML SQ SCH ×2 (09:45→20:47)
[2017-03-04 14:03] VITALS: BP 101/61
[2017-03-04] MEDS ORDERED: VANCOMYCIN PER PHARMACY MC PRN (16:00)
[2017-03-04] MEDS ORDERED: PHARMACOKINETIC CONSULTATION MC ONE (16:00)
[2017-03-04] MEDS ORDERED: PHARMACOKINETIC MONITORING MC PRN (16:00)
[2017-03-04] MEDS: PIPERACILLIN/TAZO/PMX 3.375GM 50 ML IV SCH ×2 (17:08→21:38)
[2017-03-04] MEDS: VANCOMYCIN 2,000 MG in SODIUM CHLORIDE 0.9% 500 ML IV SCH (18:16)
[2017-03-04 19:33] VITALS: BP 129/75
[2017-03-04] MEDS: SIMVASTATIN 40 MG TABLET PO SCH (20:46)
[2017-03-05 02:47] VITALS: BP 109/66
[2017-03-05] MEDS: PIPERACILLIN/TAZO/PMX 3.375GM 50 ML IV SCH ×4 (03:43→21:41)
[2017-03-05 05:33] LABS: BASOPHILS # (AUTO) 0.06 x10^3/uL (0-0.1); BASOPHILS % (AUTO) 0 % (0-1); EOSINOPHILS # (AUTO) 0.63 x10^3/uL (0-0.4); EOSINOPHILS % (AUTO) 5 % (1-7); LYMPHOCYTES # (AUTO) 2.68 x10^3/uL (1-3.4); LYMPHOCYTES % (AUTO) 19 % (22-44); MD NO; MEAN CORPUSCULAR HEMOGLOBIN 30.5 pg (27.5-34.5); MEAN CORPUSCULAR HGB CONC 31.9 g/dL (33.2-36.2); MEAN CORPUSCULAR VOLUME 95.7 fL (81-97); MEAN PLATELET VOLUME 7.7 fL (7.4-10.4); MONOCYTES # (AUTO) 1.28 x10^3/uL (0.2-0.8); MONOCYTES % (AUTO) 9 % (2-9); NEUTROPHILS % (AUTO) 67 % (42-75); PLATELET COUNT 296 x10^3/uL (130-400); RED CELL DISTRIBUTION WIDTH 17.7 % (9.4-14.8)
[2017-03-05 05:38] LABS: CHLORIDE 109 mmol/L (98-107)
[2017-03-05 05:45] LABS: ANION GAP 4 mmol/L (5-15); CALCIUM 8.2 mg/dL (8.5-10.1); CREATININE 0.62 mg/dL (0.7-1.3)
[2017-03-05] MEDS: ALBUTEROL/IPRATROPIUM 2.5MG/0.5MG, 3 ML NPPB SCH (08:13)
[2017-03-05 08:27] VITALS: BP 117/73
[2017-03-05] MEDS: POTASSIUM CHLORIDE 20 MEQ TAB.ER.PRT PO SCH ×2 (09:41→16:16)
[2017-03-05] MEDS: FAMOTIDINE 20 MG TABLET PO SCH ×2 (09:41→20:41)
[2017-03-05] MEDS: SULFAMETH./TRIMETHOPRIM DS 800MG/160MG TABLET PO SCH ×2 (09:41→20:41)
[2017-03-05] MEDS: FLUOXETINE 10 MG CAP PO SCH (09:41)
[2017-03-05] MEDS: TAMSULOSIN 0.4 MG CAP.ER.24H PO SCH (09:41)
[2017-03-05] MEDS: RIFAXIMIN 550 MG TABLET PO SCH ×2 (09:42→20:41)
[2017-03-05] MEDS: ENOXAPARIN 30 MG/0.3 ML SQ SCH ×2 (09:42→20:41)
[2017-03-05] MEDS: SODIUM CHLORIDE FLUSH 10ML SYR IVF SCH ×2 (09:42→20:40)
[2017-03-05] MEDS: LACTULOSE 20 GM/30 ML UDC PO SCH ×2 (09:42→20:41)
[2017-03-05 14:08] VITALS: BP 120/71
[2017-03-05] MEDS: VANCOMYCIN 2,000 MG in SODIUM CHLORIDE 0.9% 500 ML IV SCH (17:38)
[2017-03-05 19:40] VITALS: BP 102/62
[2017-03-05] MEDS: SIMVASTATIN 40 MG TABLET PO SCH (20:41)
[2017-03-06 01:34] VITALS: BP 126/74
[2017-03-06] MEDS: PIPERACILLIN/TAZO/PMX 3.375GM 50 ML IV SCH ×4 (04:14→22:34)
[2017-03-06 05:43] LABS: MEAN CORPUSCULAR HEMOGLOBIN 30.8 pg (27.5-34.5); MEAN CORPUSCULAR HGB CONC 32.4 g/dL (33.2-36.2); MEAN CORPUSCULAR VOLUME 95.1 fL (81-97); MEAN PLATELET VOLUME 7.2 fL (7.4-10.4); PLATELET COUNT 308 x10^3/uL (130-400); RED BLOOD COUNT 3.68 x10^6/uL (4.38-5.82); RED CELL DISTRIBUTION WIDTH 17.9 % (9.4-14.8)
[2017-03-06 06:20] LABS: MD YES
[2017-03-06 06:26] LABS: LYMPH#(MANUAL) 2.47 x10^3/uL (1-3.4); LYMPHS% (MANUAL) 18 % (22-44); MONOS#(MANUAL) 0.82 x10^3/uL (0.3-2.7); MONOS% (MANUAL) 6 % (2-9); SEG#(MANUAL) 10.41 x10^3/uL (1.8-6.8); SEGS% (MANUAL) 76 % (42-75)
[2017-03-06 06:27] LABS: ANISOCYTOSIS 1+; POLYCHROMASIA 1+
[2017-03-06 06:28] LABS: <PLATELET ESTIMATE> ADEQUATE; <PLT MORPHOLOGY> NORMAL PLT MORPH
[2017-03-06 08:00] VITALS: BP 117/71
[2017-03-06] MEDS: FAMOTIDINE 20 MG TABLET PO SCH ×2 (08:42→20:16)
[2017-03-06] MEDS: TAMSULOSIN 0.4 MG CAP.ER.24H PO SCH (08:42)
[2017-03-06] MEDS: FLUOXETINE 10 MG CAP PO SCH (08:42)
[2017-03-06] MEDS: SULFAMETH./TRIMETHOPRIM DS 800MG/160MG TABLET PO SCH ×2 (08:42→20:16)
[2017-03-06] MEDS: LACTULOSE 20 GM/30 ML UDC PO SCH ×2 (08:42→20:17)
[2017-03-06] MEDS: RIFAXIMIN 550 MG TABLET PO SCH ×2 (08:42→20:16)
[2017-03-06] MEDS: POTASSIUM CHLORIDE 20 MEQ TAB.ER.PRT PO SCH ×2 (08:42→18:00)
[2017-03-06] MEDS: ENOXAPARIN 30 MG/0.3 ML SQ SCH ×2 (08:43→20:17)
[2017-03-06] MEDS: SODIUM CHLORIDE FLUSH 10ML SYR IVF SCH ×2 (08:43→20:16)
[2017-03-06] MEDS ORDERED: ALBUTEROL/IPRATROPIUM 2.5MG/0.5MG, 3 ML NPPB PRN (11:00)
[2017-03-06 13:05] VITALS: BP 113/69
[2017-03-06] MEDS: VANCOMYCIN 2,000 MG in SODIUM CHLORIDE 0.9% 500 ML IV SCH (18:01)
[2017-03-06 18:32] VITALS: BP 121/74
[2017-03-06] MEDS: SIMVASTATIN 40 MG TABLET PO SCH (20:16)
[2017-03-07 01:53] VITALS: BP 103/67
[2017-03-07] MEDS: PIPERACILLIN/TAZO/PMX 3.375GM 50 ML IV SCH ×4 (04:35→22:10)
[2017-03-07 07:47] VITALS: BP 99/62
[2017-03-07] MEDS: SODIUM CHLORIDE FLUSH 10ML SYR IVF SCH ×2 (08:55→22:23)
[2017-03-07] MEDS: SULFAMETH./TRIMETHOPRIM DS 800MG/160MG TABLET PO SCH ×2 (08:55→22:24)
[2017-03-07] MEDS: RIFAXIMIN 550 MG TABLET PO SCH ×2 (08:55→22:24)
[2017-03-07] MEDS: POTASSIUM CHLORIDE 20 MEQ TAB.ER.PRT PO SCH ×2 (08:55→16:35)
[2017-03-07] MEDS: FAMOTIDINE 20 MG TABLET PO SCH ×2 (08:55→22:24)
[2017-03-07] MEDS: FLUOXETINE 10 MG CAP PO SCH (08:55)
[2017-03-07] MEDS: TAMSULOSIN 0.4 MG CAP.ER.24H PO SCH (08:55)
[2017-03-07] MEDS: ENOXAPARIN 30 MG/0.3 ML SQ SCH ×2 (08:56→21:00)
[2017-03-07] MEDS: LACTULOSE 20 GM/30 ML UDC PO SCH ×2 (08:58→22:25)
[2017-03-07 13:31] VITALS: BP 109/66
[2017-03-07 15:12] LABS: CLOSTRIDIUM DIFFICILE ANTIGEN NEGATIVE; CLOSTRIDIUM DIFFICILE TOXIN NEGATIVE (Negative)
[2017-03-07 19:33] VITALS: BP 106/64
[2017-03-07] MEDS: SIMVASTATIN 40 MG TABLET PO SCH (22:24)
[2017-03-07] MEDS: VANCOMYCIN 1,700 MG in SODIUM CHLORIDE 0.9% 250 ML IV SCH (22:27)
[2017-03-08 02:24] VITALS: BP 118/75
[2017-03-08] MEDS: PIPERACILLIN/TAZO/PMX 3.375GM 50 ML IV SCH ×4 (04:08→21:05)
[2017-03-08 06:58] VITALS: BP 103/64
[2017-03-08] MEDS: TAMSULOSIN 0.4 MG CAP.ER.24H PO SCH (08:03)
[2017-03-08] MEDS: LACTULOSE 20 GM/30 ML UDC PO SCH ×2 (08:03→21:07)
[2017-03-08] MEDS: RIFAXIMIN 550 MG TABLET PO SCH ×2 (08:03→21:07)
[2017-03-08] MEDS: POTASSIUM CHLORIDE 20 MEQ TAB.ER.PRT PO SCH ×2 (08:03→16:22)
[2017-03-08] MEDS: FLUOXETINE 10 MG CAP PO SCH (08:03)
[2017-03-08] MEDS: SULFAMETH./TRIMETHOPRIM DS 800MG/160MG TABLET PO SCH ×2 (08:03→21:07)
[2017-03-08] MEDS: FAMOTIDINE 20 MG TABLET PO SCH ×2 (08:03→21:07)
[2017-03-08] MEDS: ENOXAPARIN 30 MG/0.3 ML SQ SCH ×2 (08:04→21:07)
[2017-03-08] MEDS: SODIUM CHLORIDE FLUSH 10ML SYR IVF SCH ×2 (08:04→21:07)
[2017-03-08 12:45] VITALS: BP 115/68
[2017-03-08 20:25] VITALS: BP 124/77
[2017-03-08] MEDS: SIMVASTATIN 40 MG TABLET PO SCH (21:07)
[2017-03-08] MEDS: VANCOMYCIN 1,700 MG in SODIUM CHLORIDE 0.9% 250 ML IV SCH (23:07)
[2017-03-09 02:27] VITALS: BP 111/68
[2017-03-09] MEDS: PIPERACILLIN/TAZO/PMX 3.375GM 50 ML IV SCH ×4 (03:05→22:38)
[2017-03-09 07:35] VITALS: BP 101/60
[2017-03-09] MEDS: FAMOTIDINE 20 MG TABLET PO SCH ×2 (09:16→21:01)
[2017-03-09] MEDS: FLUOXETINE 10 MG CAP PO SCH (09:16)
[2017-03-09] MEDS: LACTULOSE 20 GM/30 ML UDC PO SCH ×2 (09:16→21:02)
[2017-03-09] MEDS: TAMSULOSIN 0.4 MG CAP.ER.24H PO SCH (09:16)
[2017-03-09] MEDS: RIFAXIMIN 550 MG TABLET PO SCH ×2 (09:16→21:01)
[2017-03-09] MEDS: SULFAMETH./TRIMETHOPRIM DS 800MG/160MG TABLET PO SCH ×2 (09:16→21:01)
[2017-03-09] MEDS: ENOXAPARIN 30 MG/0.3 ML SQ SCH ×2 (09:16→21:02)
[2017-03-09] MEDS: POTASSIUM CHLORIDE 20 MEQ TAB.ER.PRT PO SCH ×2 (09:16→17:32)
[2017-03-09] MEDS: SODIUM CHLORIDE FLUSH 10ML SYR IVF SCH ×2 (09:17→21:02)
[2017-03-09 12:53] VITALS: BP 121/71
[2017-03-09 19:05] VITALS: BP 109/66
[2017-03-09] MEDS: SIMVASTATIN 40 MG TABLET PO SCH (21:01)
[2017-03-09] MEDS: VANCOMYCIN 1,700 MG in SODIUM CHLORIDE 0.9% 250 ML IV SCH (23:23)
[2017-03-10 01:47] VITALS: BP 112/64
[2017-03-10] MEDS: PIPERACILLIN/TAZO/PMX 3.375GM 50 ML IV SCH ×4 (04:03→21:20)
[2017-03-10 07:09] VITALS: BP 97/57
[2017-03-10] MEDS: POTASSIUM CHLORIDE 20 MEQ TAB.ER.PRT PO SCH ×2 (08:00→16:51)
[2017-03-10] MEDS: SODIUM CHLORIDE FLUSH 10ML SYR IVF SCH ×2 (09:00→21:20)
[2017-03-10] MEDS: FAMOTIDINE 20 MG TABLET PO SCH ×2 (09:26→21:20)
[2017-03-10] MEDS: RIFAXIMIN 550 MG TABLET PO SCH ×2 (09:26→21:20)
[2017-03-10] MEDS: LACTULOSE 20 GM/30 ML UDC PO SCH ×2 (09:26→21:19)
[2017-03-10] MEDS: TAMSULOSIN 0.4 MG CAP.ER.24H PO SCH (09:26)
[2017-03-10] MEDS: FLUOXETINE 10 MG CAP PO SCH (09:26)
[2017-03-10] MEDS: SULFAMETH./TRIMETHOPRIM DS 800MG/160MG TABLET PO SCH ×2 (09:26→21:19)
[2017-03-10] MEDS: ENOXAPARIN 30 MG/0.3 ML SQ SCH ×2 (09:27→21:20)
[2017-03-10 12:42] VITALS: BP 127/72
[2017-03-10 19:46] VITALS: BP 113/70
[2017-03-10] MEDS: SIMVASTATIN 40 MG TABLET PO SCH (21:20)
[2017-03-11] MEDS: VANCOMYCIN 1,700 MG in SODIUM CHLORIDE 0.9% 250 ML IV SCH ×2 (00:18→23:18)
[2017-03-11 01:12] VITALS: BP 104/58
[2017-03-11] MEDS: PIPERACILLIN/TAZO/PMX 3.375GM 50 ML IV SCH ×4 (03:18→22:14)
[2017-03-11 07:24] VITALS: BP 108/67
[2017-03-11] MEDS: SULFAMETH./TRIMETHOPRIM DS 800MG/160MG TABLET PO SCH ×2 (08:59→20:45)
[2017-03-11] MEDS: LACTULOSE 20 GM/30 ML UDC PO SCH ×2 (08:59→20:45)
[2017-03-11] MEDS: FLUOXETINE 10 MG CAP PO SCH (08:59)
[2017-03-11] MEDS: POTASSIUM CHLORIDE 20 MEQ TAB.ER.PRT PO SCH ×2 (08:59→17:26)
[2017-03-11] MEDS: FAMOTIDINE 20 MG TABLET PO SCH ×2 (08:59→20:45)
[2017-03-11] MEDS: TAMSULOSIN 0.4 MG CAP.ER.24H PO SCH (08:59)
[2017-03-11] MEDS: RIFAXIMIN 550 MG TABLET PO SCH ×2 (08:59→20:45)
[2017-03-11] MEDS: SODIUM CHLORIDE FLUSH 10ML SYR IVF SCH ×2 (09:09→20:46)
[2017-03-11] MEDS: ENOXAPARIN 30 MG/0.3 ML SQ SCH ×2 (09:09→20:46)
[2017-03-11 12:56] VITALS: BP 126/73
[2017-03-11] MEDS: ACETAMINOPHEN 325 MG TABLET PO PRN (18:27)
[2017-03-11 19:33] VITALS: BP 129/74
[2017-03-11] MEDS: SIMVASTATIN 40 MG TABLET PO SCH (20:46)
[2017-03-11] MEDS: HYDROcodone/APAP 5/325 TABLET PO PRN (23:20)
[2017-03-12 02:00] VITALS: BP 105/58
[2017-03-12] MEDS: PIPERACILLIN/TAZO/PMX 3.375GM 50 ML IV SCH ×4 (04:06→21:40)
[2017-03-12 05:44] LABS: CREATININE 0.69 mg/dL (0.7-1.3)
[2017-03-12 07:38] VITALS: BP 112/64
[2017-03-12] MEDS: RIFAXIMIN 550 MG TABLET PO SCH ×2 (09:10→21:40)
[2017-03-12] MEDS: TAMSULOSIN 0.4 MG CAP.ER.24H PO SCH (09:10)
[2017-03-12] MEDS: SULFAMETH./TRIMETHOPRIM DS 800MG/160MG TABLET PO SCH ×2 (09:11→21:40)
[2017-03-12] MEDS: FLUOXETINE 10 MG CAP PO SCH (09:11)
[2017-03-12] MEDS: POTASSIUM CHLORIDE 20 MEQ TAB.ER.PRT PO SCH ×2 (09:12→17:14)
[2017-03-12] MEDS: LACTULOSE 20 GM/30 ML UDC PO SCH ×2 (09:13→21:40)
[2017-03-12] MEDS: ENOXAPARIN 30 MG/0.3 ML SQ SCH ×2 (09:13→21:40)
[2017-03-12] MEDS: SODIUM CHLORIDE FLUSH 10ML SYR IVF SCH ×2 (09:15→21:39)
[2017-03-12] MEDS: FAMOTIDINE 20 MG TABLET PO SCH ×2 (09:18→21:40)
[2017-03-12] MEDS ORDERED: POLYETHYLENE GLYCOL 17 GM PACKET PO PRN (12:30)
[2017-03-12] MEDS ORDERED: PHARMACY MAY ADJ FOR RENAL FX MC SCH (12:30)
[2017-03-12] MEDS ORDERED: ONDANSETRON 2MG/ML, 2ML IVPush PRN ×2 (12:30)
[2017-03-12] MEDS ORDERED: BISACODYL 10 MG SUPP PR PRN (12:30)
[2017-03-12] MEDS ORDERED: DOCUSATE 100 MG CAPSULE PO PRN (12:30)
[2017-03-12] MEDS ORDERED: SENNOSIDES 8.8 MG/5 ML ORAL SOL NG PRN ×2 (12:30)
[2017-03-12] MEDS ORDERED: GLUCAGON 1 MG IM PRN (12:30)
[2017-03-12] MEDS ORDERED: DEXTROSE 4 GM TAB.CHEW PO PRN (12:30)
[2017-03-12] MEDS ORDERED: PHARMACOKINETIC MONITORING MC PRN (12:30)
[2017-03-12 14:12] VITALS: BP 116/73
[2017-03-12 19:45] VITALS: BP 124/66
[2017-03-12] MEDS ORDERED: LACTULOSE 20 GM/30 ML UDC PO SCH (21:00)
[2017-03-12] MEDS: SIMVASTATIN 40 MG TABLET PO SCH (21:40)
[2017-03-13] MEDS: VANCOMYCIN 1,700 MG in SODIUM CHLORIDE 0.9% 250 ML IV SCH (00:41)
[2017-03-13 00:50] VITALS: BP 114/70
[2017-03-13] MEDS: PIPERACILLIN/TAZO/PMX 3.375GM 50 ML IV SCH ×4 (03:32→21:29)
[2017-03-13 07:22] VITALS: BP 113/66
[2017-03-13] MEDS: SODIUM CHLORIDE FLUSH 10ML SYR IVF SCH ×2 (08:51→21:28)
[2017-03-13] MEDS: TAMSULOSIN 0.4 MG CAP.ER.24H PO SCH (08:51)
[2017-03-13] MEDS: POTASSIUM CHLORIDE 20 MEQ TAB.ER.PRT PO SCH ×2 (08:51→16:49)
[2017-03-13] MEDS: LACTULOSE 20 GM/30 ML UDC PO SCH ×2 (08:52→21:28)
[2017-03-13] MEDS: FLUOXETINE 10 MG CAP PO SCH (08:52)
[2017-03-13] MEDS: RIFAXIMIN 550 MG TABLET PO SCH ×2 (08:52→21:28)
[2017-03-13] MEDS: FAMOTIDINE 20 MG TABLET PO SCH ×2 (08:52→21:29)
[2017-03-13] MEDS: ENOXAPARIN 30 MG/0.3 ML SQ SCH ×2 (08:52→21:29)
[2017-03-13] MEDS: SULFAMETH./TRIMETHOPRIM DS 800MG/160MG TABLET PO SCH ×2 (08:52→21:28)
[2017-03-13 12:05] VITALS: BP 112/65
[2017-03-13 19:19] VITALS: BP 104/62
[2017-03-13] MEDS: SIMVASTATIN 40 MG TABLET PO SCH (21:28)
[2017-03-14] MEDS: VANCOMYCIN 1,700 MG in SODIUM CHLORIDE 0.9% 250 ML IV SCH (00:12)
[2017-03-14 01:16] VITALS: BP 106/64
[2017-03-14] MEDS: PIPERACILLIN/TAZO/PMX 3.375GM 50 ML IV SCH ×4 (04:18→23:00)
[2017-03-14 05:21] LABS: MEAN CORPUSCULAR HEMOGLOBIN 31.2 pg (27.5-34.5); MEAN CORPUSCULAR VOLUME 97.5 fL (81-97); MEAN PLATELET VOLUME 7.3 fL (7.4-10.4); PLATELET COUNT 237 x10^3/uL (130-400); RED BLOOD COUNT 3.62 x10^6/uL (4.38-5.82); RED CELL DISTRIBUTION WIDTH 17.9 % (9.4-14.8)
[2017-03-14 05:30] LABS: ANION GAP 6 mmol/L (5-15); CALCIUM 9.1 mg/dL (8.5-10.1); CHLORIDE 103 mmol/L (98-107)
[2017-03-14 05:35] LABS: ALANINE AMINOTRANSFERASE 19 U/L (12-78); ALKALINE PHOSPHATASE 82 U/L (45-117); BILIRUBIN,TOTAL 0.7 mg/dL (0.2-1.0); CREATININE 0.81 mg/dL (0.7-1.3); TOTAL PROTEIN 7.6 g/dL (6.4-8.2)
[2017-03-14 05:56] LABS: MD YES
[2017-03-14 05:57] LABS: ANISOCYTOSIS 1+; EOS#(MANUAL) 0.35 x10^3/uL (0.0-0.4); EOS% (MANUAL) 1 % (1-7); LYMPH#(MANUAL) 2.12 x10^3/uL (1-3.4); LYMPHS% (MANUAL) 6 % (22-44); MONOS#(MANUAL) 1.77 x10^3/uL (0.3-2.7); MONOS% (MANUAL) 5 % (2-9); POLYCHROMASIA 1+; SEG#(MANUAL) 31.06 x10^3/uL (1.8-6.8); SEGS% (MANUAL) 88 % (42-75)
[2017-03-14 05:58] LABS: <PLATELET ESTIMATE> ADEQUATE; <PLT MORPHOLOGY> NORMAL PLT MORPH
[2017-03-14 07:06] VITALS: BP 109/71
[2017-03-14] MEDS: POTASSIUM CHLORIDE 20 MEQ TAB.ER.PRT PO SCH ×2 (08:29→17:00)
[2017-03-14] MEDS: SULFAMETH./TRIMETHOPRIM DS 800MG/160MG TABLET PO SCH ×2 (08:29→23:00)
[2017-03-14] MEDS: TAMSULOSIN 0.4 MG CAP.ER.24H PO SCH (08:29)
[2017-03-14] MEDS: FLUOXETINE 10 MG CAP PO SCH (08:29)
[2017-03-14] MEDS: RIFAXIMIN 550 MG TABLET PO SCH (08:29)
[2017-03-14] MEDS: ENOXAPARIN 30 MG/0.3 ML SQ SCH ×2 (08:29→23:00)
[2017-03-14] MEDS: FAMOTIDINE 20 MG TABLET PO SCH ×2 (08:29→23:00)
[2017-03-14] MEDS: SODIUM CHLORIDE FLUSH 10ML SYR IVF SCH ×2 (08:30→23:01)
[2017-03-14] MEDS: LACTULOSE 20 GM/30 ML UDC PO SCH (08:30)
[2017-03-14 09:07] LABS: MICROSCOPIC AUTO
[2017-03-14 09:16] LABS: CULTURE INDICATED? YES
[2017-03-14 12:41] VITALS: BP 114/68
[2017-03-14 20:00] VITALS: BP 103/55
[2017-03-14] MEDS: SIMVASTATIN 40 MG TABLET PO SCH (23:00)
[2017-03-15] VITALS (12 sets, daily range): BP systolic 96–111; BP diastolic 54–74
[2017-03-15] MEDS: PIPERACILLIN/TAZO/PMX 3.375GM 50 ML IV SCH ×4 (05:34→22:30)
[2017-03-15 05:35] LABS: MEAN CORPUSCULAR HEMOGLOBIN 31.9 pg (27.5-34.5); MEAN CORPUSCULAR HGB CONC 32.6 g/dL (33.2-36.2); MEAN CORPUSCULAR VOLUME 97.7 fL (81-97); MEAN PLATELET VOLUME 7.3 fL (7.4-10.4); PLATELET COUNT 240 x10^3/uL (130-400); RED BLOOD COUNT 3.25 x10^6/uL (4.38-5.82); RED CELL DISTRIBUTION WIDTH 17.8 % (9.4-14.8)
[2017-03-15 05:45] LABS: CHLORIDE 103 mmol/L (98-107)
[2017-03-15 05:52] LABS: ALBUMIN 1.7 g/dL (3.4-5.0); ANION GAP 7 mmol/L (5-15); CALCIUM 9.4 mg/dL (8.5-10.1); CREATININE 0.89 mg/dL (0.7-1.3)
[2017-03-15 06:12] LABS: BAND#(MANUAL) 0.34 x10^3/uL; BANDS%(MANUAL) 1 % (0-7); LYMPH#(MANUAL) 1.68 x10^3/uL (1-3.4); LYMPHS% (MANUAL) 5 % (22-44); MD YES; MONOS#(MANUAL) 1.01 x10^3/uL (0.3-2.7); MONOS% (MANUAL) 3 % (2-9); SEGS% (MANUAL) 89 % (42-75)
[2017-03-15 06:13] LABS: <PLATELET ESTIMATE> ADEQUATE; <PLT MORPHOLOGY> NORMAL PLT MORPH; ANISOCYTOSIS 1+; EOS#(MANUAL) 0.67 x10^3/uL (0.0-0.4); EOS% (MANUAL) 2 % (1-7)
[2017-03-15] MEDS: ENOXAPARIN 30 MG/0.3 ML SQ SCH ×2 (07:28→22:30)
[2017-03-15] MEDS: POTASSIUM CHLORIDE 20 MEQ TAB.ER.PRT PO SCH ×2 (08:00→17:42)
[2017-03-15] MEDS: FLUOXETINE 10 MG CAP PO SCH (09:00)
[2017-03-15] MEDS: FAMOTIDINE 20 MG TABLET PO SCH ×2 (09:00→22:30)
[2017-03-15] MEDS: SULFAMETH./TRIMETHOPRIM DS 800MG/160MG TABLET PO SCH ×2 (09:00→22:30)
[2017-03-15] MEDS: TAMSULOSIN 0.4 MG CAP.ER.24H PO SCH (09:00)
[2017-03-15] MEDS: SODIUM CHLORIDE FLUSH 10ML SYR IVF SCH ×2 (09:00→22:35)
[2017-03-15] MEDS ORDERED: LIDOCAINE 2%, 20ML ONE (09:14)
[2017-03-15] MEDS ORDERED: FLUMAZENIL 0.1 MG/1 ML, 5ML ONE (09:43)
[2017-03-15] MEDS ORDERED: MIDAZOLAM 1 MG/ML, 2ML ONE (09:43)
[2017-03-15] MEDS ORDERED: FENTANYL PF 100 MCG/2ML ONE (09:43)
[2017-03-15] MEDS ORDERED: NALOXONE 1 MG/ML, 2ML ONE (09:43)
[2017-03-15] MEDS: ACETAMINOPHEN 325 MG TABLET PO PRN (15:28)
[2017-03-15] MEDS: HYDROcodone/APAP 5/325 TABLET PO PRN (19:33)
[2017-03-15] MEDS: SIMVASTATIN 40 MG TABLET PO SCH (22:30)
[2017-03-16 02:00] VITALS: BP 105/73
[2017-03-16 05:19] LABS: MEAN CORPUSCULAR HEMOGLOBIN 31.5 pg (27.5-34.5); MEAN CORPUSCULAR HGB CONC 32.1 g/dL (33.2-36.2); MEAN CORPUSCULAR VOLUME 98.3 fL (81-97); MEAN PLATELET VOLUME 7.7 fL (7.4-10.4); PLATELET COUNT 277 x10^3/uL (130-400); RED BLOOD COUNT 2.89 x10^6/uL (4.38-5.82); RED CELL DISTRIBUTION WIDTH 17.7 % (9.4-14.8)
[2017-03-16 05:35] LABS: CHLORIDE 104 mmol/L (98-107)
[2017-03-16] MEDS: PIPERACILLIN/TAZO/PMX 3.375GM 50 ML IV SCH ×4 (05:38→23:36)
[2017-03-16 05:44] LABS: ALANINE AMINOTRANSFERASE 50 U/L (12-78); ALBUMIN 1.7 g/dL (3.4-5.0); ALKALINE PHOSPHATASE 182 U/L (45-117); ANION GAP 4 mmol/L (5-15); BILIRUBIN,TOTAL 0.7 mg/dL (0.2-1.0); CALCIUM 9.4 mg/dL (8.5-10.1); CREATININE 1.11 mg/dL (0.7-1.3); TOTAL PROTEIN 7.3 g/dL (6.4-8.2)
[2017-03-16 05:51] LABS: MD YES
[2017-03-16] MEDS: HYDROcodone/APAP 5/325 TABLET PO PRN (05:52)
[2017-03-16 05:54] LABS: ANISOCYTOSIS 1+; BAND#(MANUAL) 0.78 x10^3/uL; BANDS%(MANUAL) 3 % (0-7); EOS#(MANUAL) 0.26 x10^3/uL (0.0-0.4); EOS% (MANUAL) 1 % (1-7); LYMPH#(MANUAL) 1.56 x10^3/uL (1-3.4); LYMPHS% (MANUAL) 6 % (22-44); METAMYELOCYTES# (MANUAL) 0.52 x10^3/uL (0-0); METAMYELOCYTES% (MANUAL) 2 % (0-1); MONOS#(MANUAL) 3.12 x10^3/uL (0.3-2.7); MONOS% (MANUAL) 12 % (2-9); SEG#(MANUAL) 19.76 x10^3/uL (1.8-6.8); SEGS% (MANUAL) 76 % (42-75)
[2017-03-16 05:55] LABS: <PLATELET ESTIMATE> ADEQUATE; <PLT MORPHOLOGY> NORMAL PLT MORPH; POLYCHROMASIA 1+
[2017-03-16 07:49] VITALS: BP 94/59
[2017-03-16] MEDS: SULFAMETH./TRIMETHOPRIM DS 800MG/160MG TABLET PO SCH ×2 (08:51→21:25)
[2017-03-16] MEDS: TAMSULOSIN 0.4 MG CAP.ER.24H PO SCH (08:51)
[2017-03-16] MEDS: FAMOTIDINE 20 MG TABLET PO SCH ×2 (08:52→21:25)
[2017-03-16] MEDS: SODIUM CHLORIDE FLUSH 10ML SYR IVF SCH ×2 (08:52→21:25)
[2017-03-16] MEDS: ENOXAPARIN 30 MG/0.3 ML SQ SCH ×2 (08:52→21:25)
[2017-03-16] MEDS: FLUOXETINE 10 MG CAP PO SCH (08:52)
[2017-03-16 12:53] VITALS: BP 104/68
[2017-03-16 20:00] VITALS: BP 107/71
[2017-03-16] MEDS: SIMVASTATIN 40 MG TABLET PO SCH (21:25)
[2017-03-17 02:00] VITALS: BP 112/70
[2017-03-17] MEDS: PIPERACILLIN/TAZO/PMX 3.375GM 50 ML IV SCH ×4 (04:49→22:30)
[2017-03-17 06:11] LABS: ALBUMIN 1.7 g/dL (3.4-5.0); ANION GAP 5 mmol/L (5-15); CALCIUM 9.5 mg/dL (8.5-10.1); CHLORIDE 100 mmol/L (98-107)
[2017-03-17 06:15] LABS: MEAN CORPUSCULAR HEMOGLOBIN 31.3 pg (27.5-34.5); MEAN CORPUSCULAR HGB CONC 31.8 g/dL (33.2-36.2); MEAN CORPUSCULAR VOLUME 98.5 fL (81-97); MEAN PLATELET VOLUME 7.4 fL (7.4-10.4); PLATELET COUNT 294 x10^3/uL (130-400); RED CELL DISTRIBUTION WIDTH 17.6 % (9.4-14.8)
[2017-03-17 06:16] LABS: ALANINE AMINOTRANSFERASE 44 U/L (12-78); ALKALINE PHOSPHATASE 152 U/L (45-117); BILIRUBIN,TOTAL 0.4 mg/dL (0.2-1.0); CREATININE 0.88 mg/dL (0.7-1.3); TOTAL PROTEIN 6.8 g/dL (6.4-8.2)
[2017-03-17 06:46] LABS: BASOPHILS % (AUTO) 1 % (0-1); EOSINOPHILS # (AUTO) 1.22 x10^3/uL (0-0.4); EOSINOPHILS % (AUTO) 6 % (1-7); LYMPHOCYTES # (AUTO) 2.31 x10^3/uL (1-3.4); LYMPHOCYTES % (AUTO) 11 % (22-44); MD SCAN; MONOCYTES # (AUTO) 1.86 x10^3/uL (0.2-0.8); MONOCYTES % (AUTO) 9 % (2-9); NEUTROPHILS # (AUTO) 16.22 x10^3/uL (1.8-6.8); NEUTROPHILS % (AUTO) 75 % (42-75)
[2017-03-17 07:09] VITALS: BP 104/69
[2017-03-17] MEDS ORDERED: FLUCONAZOLE 400 MG/200 ML IV ONE (08:30)
[2017-03-17] MEDS: ENOXAPARIN 30 MG/0.3 ML SQ SCH ×2 (08:55→22:30)
[2017-03-17] MEDS: TAMSULOSIN 0.4 MG CAP.ER.24H PO SCH (08:55)
[2017-03-17] MEDS: FAMOTIDINE 20 MG TABLET PO SCH ×2 (08:55→22:31)
[2017-03-17] MEDS: SULFAMETH./TRIMETHOPRIM DS 800MG/160MG TABLET PO SCH ×2 (08:56→22:31)
[2017-03-17] MEDS: FLUOXETINE 10 MG CAP PO SCH (08:56)
[2017-03-17] MEDS: SODIUM CHLORIDE FLUSH 10ML SYR IVF SCH ×2 (08:56→22:31)
[2017-03-17] MEDS: HYDROcodone/APAP 5/325 TABLET PO PRN ×2 (09:13→18:29)
[2017-03-17 12:47] VITALS: BP 103/64
[2017-03-17 20:00] VITALS: BP 132/76
[2017-03-17] MEDS: SIMVASTATIN 40 MG TABLET PO SCH (22:31)
[2017-03-18 02:00] VITALS: BP 100/63
[2017-03-18] MEDS: PIPERACILLIN/TAZO/PMX 3.375GM 50 ML IV SCH ×3 (04:59→16:57)
[2017-03-18 05:36] LABS: CHLORIDE 98 mmol/L (98-107)
[2017-03-18 05:39] LABS: MEAN CORPUSCULAR HEMOGLOBIN 31.4 pg (27.5-34.5); MEAN CORPUSCULAR HGB CONC 32.1 g/dL (33.2-36.2); MEAN PLATELET VOLUME 6.9 fL (7.4-10.4); PLATELET COUNT 320 x10^3/uL (130-400); RED BLOOD COUNT 2.44 x10^6/uL (4.38-5.82); RED CELL DISTRIBUTION WIDTH 17.5 % (9.4-14.8)
[2017-03-18 06:09] LABS: ALANINE AMINOTRANSFERASE 42 U/L (12-78); ALBUMIN 1.7 g/dL (3.4-5.0); ALKALINE PHOSPHATASE 154 U/L (45-117); ANION GAP 4 mmol/L (5-15); BILIRUBIN,TOTAL 0.3 mg/dL (0.2-1.0); CALCIUM 8.8 mg/dL (8.5-10.1); CREATININE 0.78 mg/dL (0.7-1.3); FOLATE LEVEL 4.8 ng/mL (3.1-17.5); TOTAL PROTEIN 6.8 g/dL (6.4-8.2)
[2017-03-18 06:10] LABS: MD YES
[2017-03-18 06:12] LABS: BAND#(MANUAL) 0.64 x10^3/uL; BANDS%(MANUAL) 3 % (0-7); EOS#(MANUAL) 1.27 x10^3/uL (0.0-0.4); EOS% (MANUAL) 6 % (1-7); LYMPH#(MANUAL) 3.39 x10^3/uL (1-3.4); LYMPHS% (MANUAL) 16 % (22-44); METAMYELOCYTES# (MANUAL) 1.27 x10^3/uL (0-0); METAMYELOCYTES% (MANUAL) 6 % (0-1); MONOS#(MANUAL) 2.76 x10^3/uL (0.3-2.7); MONOS% (MANUAL) 13 % (2-9); SEG#(MANUAL) 11.87 x10^3/uL (1.8-6.8); SEGS% (MANUAL) 56 % (42-75)
[2017-03-18 06:13] LABS: ANISOCYTOSIS 1+; POLYCHROMASIA 1+
[2017-03-18 06:14] LABS: <PLATELET ESTIMATE> ADEQUATE; <PLT MORPHOLOGY> NORMAL PLT MORPH
[2017-03-18 06:29] VITALS: BP 113/70
[2017-03-18] MEDS: ENOXAPARIN 30 MG/0.3 ML SQ SCH ×2 (08:51→22:30)
[2017-03-18] MEDS: FAMOTIDINE 20 MG TABLET PO SCH ×2 (08:51→22:29)
[2017-03-18] MEDS: HYDROcodone/APAP 5/325 TABLET PO PRN ×2 (08:51→14:14)
[2017-03-18] MEDS: FLUOXETINE 10 MG CAP PO SCH (08:51)
[2017-03-18] MEDS: SULFAMETH./TRIMETHOPRIM DS 800MG/160MG TABLET PO SCH ×2 (08:51→22:29)
[2017-03-18] MEDS: TAMSULOSIN 0.4 MG CAP.ER.24H PO SCH (08:51)
[2017-03-18] MEDS: SODIUM CHLORIDE FLUSH 10ML SYR IVF SCH ×2 (08:52→22:29)
[2017-03-18] MEDS: FLUCONAZOLE 400 MG/200 ML 200 ML IV SCH (08:52)
[2017-03-18 12:48] VITALS: BP 120/74
[2017-03-18 19:44] VITALS: BP 100/61
[2017-03-18] MEDS: SIMVASTATIN 40 MG TABLET PO SCH (22:29)
[2017-03-19] MEDS: PIPERACILLIN/TAZO/PMX 3.375GM 50 ML IV SCH ×4 (00:34→22:19)
[2017-03-19 02:37] VITALS: BP 106/61
[2017-03-19 05:05] LABS: MEAN CORPUSCULAR HEMOGLOBIN 31.9 pg (27.5-34.5); MEAN CORPUSCULAR HGB CONC 32.3 g/dL (33.2-36.2); MEAN CORPUSCULAR VOLUME 98.8 fL (81-97); MEAN PLATELET VOLUME 6.7 fL (7.4-10.4); PLATELET COUNT 354 x10^3/uL (130-400)
[2017-03-19 05:15] LABS: CHLORIDE 97 mmol/L (98-107)
[2017-03-19 05:22] LABS: ALANINE AMINOTRANSFERASE 35 U/L (12-78); ALBUMIN 1.8 g/dL (3.4-5.0); ALKALINE PHOSPHATASE 142 U/L (45-117); ANION GAP 3 mmol/L (5-15); BILIRUBIN,TOTAL 0.3 mg/dL (0.2-1.0); CALCIUM 9.2 mg/dL (8.5-10.1); CREATININE 0.77 mg/dL (0.7-1.3); TOTAL PROTEIN 6.6 g/dL (6.4-8.2)
[2017-03-19 05:55] LABS: MD YES
[2017-03-19 05:57] LABS: ANISOCYTOSIS 1+; BAND#(MANUAL) 0.48 x10^3/uL; BANDS%(MANUAL) 2 % (0-7); EOS#(MANUAL) 0.71 x10^3/uL (0.0-0.4); EOS% (MANUAL) 3 % (1-7); LYMPH#(MANUAL) 3.81 x10^3/uL (1-3.4); LYMPHS% (MANUAL) 16 % (22-44); METAMYELOCYTES# (MANUAL) 0.71 x10^3/uL (0-0); METAMYELOCYTES% (MANUAL) 3 % (0-1); MONOS#(MANUAL) 2.14 x10^3/uL (0.3-2.7); MONOS% (MANUAL) 9 % (2-9); MYELOCYTES# (MANUAL) 0.24 x10^3/uL (0-0); MYELOCYTES% (MANUAL) 1 % (0-0); NRBC % (MANUAL) 1 % (0-1); SEG#(MANUAL) 15.71 x10^3/uL (1.8-6.8); SEGS% (MANUAL) 66 % (42-75)
[2017-03-19 05:58] LABS: <PLATELET ESTIMATE> ADEQUATE; <PLT MORPHOLOGY> NORMAL PLT MORPH; HYPOCHROMIA 1+; POLYCHROMASIA 1+
[2017-03-19 07:31] VITALS: BP 112/68
[2017-03-19] MEDS: TAMSULOSIN 0.4 MG CAP.ER.24H PO SCH (10:35)
[2017-03-19] MEDS: FLUOXETINE 10 MG CAP PO SCH (10:35)
[2017-03-19] MEDS: FLUCONAZOLE 400 MG/200 ML 200 ML IV SCH (10:35)
[2017-03-19] MEDS: SULFAMETH./TRIMETHOPRIM DS 800MG/160MG TABLET PO SCH (10:35)
[2017-03-19] MEDS: FAMOTIDINE 20 MG TABLET PO SCH ×2 (10:35→22:19)
[2017-03-19] MEDS: SODIUM CHLORIDE FLUSH 10ML SYR IVF SCH ×2 (10:35→22:20)
[2017-03-19] MEDS: ENOXAPARIN 30 MG/0.3 ML SQ SCH ×2 (10:35→22:19)
[2017-03-19] MEDS ORDERED: MAGNESIUM SULFATE PMX 2GM/50ML 50 ML IV ONE (12:00)
[2017-03-19 13:18] LABS: OCCULT BLOOD NEGATIVE (NEGATIVE)
[2017-03-19 14:00] VITALS: BP 112/67
[2017-03-19] MEDS: HYDROcodone/APAP 5/325 TABLET PO PRN (15:46)
[2017-03-19] MEDS: NEUTRA PHOS K 250 MG TABLET PO SCH ×3 (15:56→22:19)
[2017-03-19 19:32] VITALS: BP 106/67
[2017-03-19] MEDS: SIMVASTATIN 40 MG TABLET PO SCH (22:19)
[2017-03-20 01:57] VITALS: BP 116/68
[2017-03-20] MEDS: PIPERACILLIN/TAZO/PMX 3.375GM 50 ML IV SCH ×4 (03:46→21:53)
[2017-03-20 04:54] LABS: MEAN CORPUSCULAR HEMOGLOBIN 32.2 pg (27.5-34.5); MEAN CORPUSCULAR HGB CONC 32.6 g/dL (33.2-36.2); MEAN CORPUSCULAR VOLUME 98.7 fL (81-97); MEAN PLATELET VOLUME 6.2 fL (7.4-10.4); PLATELET COUNT 384 x10^3/uL (130-400); RED BLOOD COUNT 2.45 x10^6/uL (4.38-5.82); RED CELL DISTRIBUTION WIDTH 18.4 % (9.4-14.8)
[2017-03-20 05:09] LABS: ANION GAP 4 mmol/L (5-15); CALCIUM 9.3 mg/dL (8.5-10.1); CHLORIDE 95 mmol/L (98-107); CREATININE 0.62 mg/dL (0.7-1.3)
[2017-03-20 05:34] LABS: MD YES
[2017-03-20 05:36] LABS: ANISOCYTOSIS 1+; BAND#(MANUAL) 0.88 x10^3/uL; BANDS%(MANUAL) 4 % (0-7); EOS% (MANUAL) 5 % (1-7); LYMPH#(MANUAL) 3.29 x10^3/uL (1-3.4); LYMPHS% (MANUAL) 15 % (22-44); METAMYELOCYTES# (MANUAL) 0.22 x10^3/uL (0-0); METAMYELOCYTES% (MANUAL) 1 % (0-1); MONOS#(MANUAL) 2.19 x10^3/uL (0.3-2.7); MONOS% (MANUAL) 10 % (2-9); MYELOCYTES# (MANUAL) 0.44 x10^3/uL (0-0); MYELOCYTES% (MANUAL) 2 % (0-0); POLYCHROMASIA 1+; SEGS% (MANUAL) 63 % (42-75)
[2017-03-20 05:37] LABS: <PLATELET ESTIMATE> ADEQUATE; <PLT MORPHOLOGY> NORMAL PLT MORPH; HYPOCHROMIA 1+
[2017-03-20 07:54] VITALS: BP 104/61
[2017-03-20] MEDS: ENOXAPARIN 30 MG/0.3 ML SQ SCH ×2 (09:00→21:53)
[2017-03-20] MEDS: SODIUM CHLORIDE FLUSH 10ML SYR IVF SCH ×2 (09:00→21:53)
[2017-03-20] MEDS: FLUOXETINE 10 MG CAP PO SCH (09:26)
[2017-03-20] MEDS: TAMSULOSIN 0.4 MG CAP.ER.24H PO SCH (09:26)
[2017-03-20] MEDS: FAMOTIDINE 20 MG TABLET PO SCH ×2 (09:26→21:53)
[2017-03-20] MEDS: FLUCONAZOLE 400 MG/200 ML 200 ML IV SCH (09:26)
[2017-03-20 14:00] VITALS: BP 117/70
[2017-03-20 19:07] VITALS: BP 111/68
[2017-03-20] MEDS: HYDROcodone/APAP 5/325 TABLET PO PRN (19:09)
[2017-03-20] MEDS: SIMVASTATIN 40 MG TABLET PO SCH (21:53)
[2017-03-21 02:00] VITALS: BP 102/62
[2017-03-21] MEDS: PIPERACILLIN/TAZO/PMX 3.375GM 50 ML IV SCH ×2 (03:45→10:49)
[2017-03-21 05:19] LABS: MEAN CORPUSCULAR HEMOGLOBIN 31.7 pg (27.5-34.5); MEAN CORPUSCULAR HGB CONC 32.1 g/dL (33.2-36.2); MEAN CORPUSCULAR VOLUME 98.8 fL (81-97); MEAN PLATELET VOLUME 6.3 fL (7.4-10.4); PLATELET COUNT 468 x10^3/uL (130-400); RED BLOOD COUNT 2.41 x10^6/uL (4.38-5.82); RED CELL DISTRIBUTION WIDTH 17.9 % (9.4-14.8)
[2017-03-21 05:20] LABS: ANION GAP 3 mmol/L (5-15); CALCIUM 8.9 mg/dL (8.5-10.1); CHLORIDE 96 mmol/L (98-107)
[2017-03-21 05:23] LABS: CREATININE 0.61 mg/dL (0.7-1.3)
[2017-03-21 05:53] LABS: MD YES
[2017-03-21 05:55] LABS: BAND#(MANUAL) 0.63 x10^3/uL; BANDS%(MANUAL) 3 % (0-7); EOS#(MANUAL) 1.69 x10^3/uL (0.0-0.4); EOS% (MANUAL) 8 % (1-7); LYMPHS% (MANUAL) 9 % (22-44); METAMYELOCYTES# (MANUAL) 0.21 x10^3/uL (0-0); METAMYELOCYTES% (MANUAL) 1 % (0-1); MONOS#(MANUAL) 1.27 x10^3/uL (0.3-2.7); MONOS% (MANUAL) 6 % (2-9); SEGS% (MANUAL) 73 % (42-75)
[2017-03-21 05:56] LABS: ANISOCYTOSIS 1+; POLYCHROMASIA 1+
[2017-03-21 05:57] LABS: <PLATELET ESTIMATE> INCREASED; <PLT MORPHOLOGY> NORMAL PLT MORPH; HYPOCHROMIA 1+
[2017-03-21 07:03] VITALS: BP 106/64
[2017-03-21] MEDS: ENOXAPARIN 30 MG/0.3 ML SQ SCH ×2 (09:00→21:54)
[2017-03-21] MEDS: SODIUM CHLORIDE FLUSH 10ML SYR IVF SCH ×2 (09:00→21:53)
[2017-03-21] MEDS: FAMOTIDINE 20 MG TABLET PO SCH ×2 (09:21→21:53)
[2017-03-21] MEDS: FLUCONAZOLE 400 MG/200 ML 200 ML IV SCH (09:21)
[2017-03-21] MEDS: TAMSULOSIN 0.4 MG CAP.ER.24H PO SCH (09:21)
[2017-03-21] MEDS: FLUOXETINE 10 MG CAP PO SCH (09:21)
[2017-03-21] MEDS: HYDROcodone/APAP 5/325 TABLET PO PRN (10:49)
[2017-03-21 12:31] VITALS: BP 126/64
[2017-03-21] MEDS ORDERED: OMNIPAQUE 350 MG/ML, 100ML BOTTLE ONE (14:03)
[2017-03-21 20:00] VITALS: BP 115/69
[2017-03-21] MEDS: SIMVASTATIN 40 MG TABLET PO SCH (21:53)
[2017-03-22 02:00] VITALS: BP 116/69
[2017-03-22 05:40] LABS: MEAN CORPUSCULAR HEMOGLOBIN 31.9 pg (27.5-34.5); MEAN CORPUSCULAR HGB CONC 32.3 g/dL (33.2-36.2); MEAN CORPUSCULAR VOLUME 98.5 fL (81-97); MEAN PLATELET VOLUME 6.1 fL (7.4-10.4); PLATELET COUNT 500 x10^3/uL (130-400); RED BLOOD COUNT 2.45 x10^6/uL (4.38-5.82)
[2017-03-22 05:52] LABS: ANION GAP 4 mmol/L (5-15); CALCIUM 8.8 mg/dL (8.5-10.1); CHLORIDE 96 mmol/L (98-107)
[2017-03-22 05:55] LABS: CREATININE 0.52 mg/dL (0.7-1.3)
[2017-03-22 06:06] LABS: MD YES
[2017-03-22 06:09] LABS: ANISOCYTOSIS 1+; BASOS% (MANUAL) 1 % (0-1); EOS% (MANUAL) 15 % (1-7); HYPOCHROMIA 1+; LYMPHS% (MANUAL) 16 % (22-44); METAMYELOCYTES% (MANUAL) 1 % (0-1); MONOS% (MANUAL) 8 % (2-9); POLYCHROMASIA 1+; SEGS% (MANUAL) 59 % (42-75)
[2017-03-22 06:10] LABS: <PLATELET ESTIMATE> INCREASED; <PLT MORPHOLOGY> NORMAL PLT MORPH
[2017-03-22 07:20] VITALS: BP 109/60
[2017-03-22] MEDS ORDERED: POTASSIUM CHLORIDE 20 MEQ TAB.ER.PRT PO ONE (07:30)
[2017-03-22] MEDS: TAMSULOSIN 0.4 MG CAP.ER.24H PO SCH (09:32)
[2017-03-22] MEDS: FLUCONAZOLE 400 MG/200 ML 200 ML IV SCH (09:32)
[2017-03-22] MEDS: NEUTRA PHOS K 250 MG TABLET PO SCH ×3 (09:32→20:30)
[2017-03-22] MEDS: FLUOXETINE 10 MG CAP PO SCH (09:32)
[2017-03-22] MEDS: FAMOTIDINE 20 MG TABLET PO SCH ×2 (09:33→20:30)
[2017-03-22] MEDS: ENOXAPARIN 30 MG/0.3 ML SQ SCH ×2 (09:33→20:30)
[2017-03-22] MEDS: SODIUM CHLORIDE FLUSH 10ML SYR IVF SCH ×2 (09:34→20:30)
[2017-03-22] MEDS: HYDROcodone/APAP 5/325 TABLET PO PRN (11:14)
[2017-03-22 12:17] VITALS: BP 109/68
[2017-03-22] MEDS: SIMVASTATIN 40 MG TABLET PO SCH (20:30)
[2017-03-22 21:10] VITALS: BP 119/71
[2017-03-23 01:11] VITALS: BP 123/74
[2017-03-23 05:27] LABS: MEAN CORPUSCULAR HEMOGLOBIN 32.2 pg (27.5-34.5); MEAN CORPUSCULAR HGB CONC 32.5 g/dL (33.2-36.2); MEAN PLATELET VOLUME 6.2 fL (7.4-10.4); PLATELET COUNT 525 x10^3/uL (130-400); RED BLOOD COUNT 2.58 x10^6/uL (4.38-5.82); RED CELL DISTRIBUTION WIDTH 18.6 % (9.4-14.8)
[2017-03-23 05:40] LABS: ANION GAP 6 mmol/L (5-15); CALCIUM 8.9 mg/dL (8.5-10.1); CHLORIDE 97 mmol/L (98-107)
[2017-03-23 06:16] LABS: MD YES
[2017-03-23 06:18] LABS: <PLATELET ESTIMATE> INCREASED; <PLT MORPHOLOGY> NORMAL PLT MORPH; ANISOCYTOSIS 1+; BAND#(MANUAL) 0.77 x10^3/uL; BANDS%(MANUAL) 4 % (0-7); BASOS#(MANUAL) 0.19 x10^3/uL (0-0.1); BASOS% (MANUAL) 1 % (0-1); EOS#(MANUAL) 1.74 x10^3/uL (0.0-0.4); EOS% (MANUAL) 9 % (1-7); LYMPH#(MANUAL) 0.77 x10^3/uL (1-3.4); LYMPHS% (MANUAL) 4 % (22-44); METAMYELOCYTES# (MANUAL) 0.19 x10^3/uL (0-0); METAMYELOCYTES% (MANUAL) 1 % (0-1); MICROCYTOSIS 1+; MONOS#(MANUAL) 1.54 x10^3/uL (0.3-2.7); MONOS% (MANUAL) 8 % (2-9); POLYCHROMASIA 1+; SEG#(MANUAL) 14.09 x10^3/uL (1.8-6.8); SEGS% (MANUAL) 73 % (42-75)
[2017-03-23 08:00] VITALS: BP 99/60
[2017-03-23] MEDS: FLUCONAZOLE 400 MG/200 ML 200 ML IV SCH (08:11)
[2017-03-23] MEDS: SODIUM CHLORIDE FLUSH 10ML SYR IVF SCH ×2 (08:11→20:55)
[2017-03-23] MEDS: ENOXAPARIN 30 MG/0.3 ML SQ SCH ×2 (08:11→20:55)
[2017-03-23] MEDS: FLUOXETINE 10 MG CAP PO SCH (08:12)
[2017-03-23] MEDS: TAMSULOSIN 0.4 MG CAP.ER.24H PO SCH (08:12)
[2017-03-23] MEDS: FAMOTIDINE 20 MG TABLET PO SCH ×2 (08:12→20:55)
[2017-03-23] MEDS: POTASSIUM CHLORIDE 20 MEQ TAB.ER.PRT PO SCH ×2 (10:01→14:45)
[2017-03-23 12:50] VITALS: BP 103/64
[2017-03-23 19:58] VITALS: BP 112/64
[2017-03-23] MEDS: SIMVASTATIN 40 MG TABLET PO SCH (20:55)
[2017-03-24 01:59] VITALS: BP 116/69
[2017-03-24 07:00] VITALS: BP 113/69
[2017-03-24 08:24] LABS: MEAN CORPUSCULAR HEMOGLOBIN 31.3 pg (27.5-34.5); MEAN CORPUSCULAR HGB CONC 31.6 g/dL (33.2-36.2); MEAN CORPUSCULAR VOLUME 99.1 fL (81-97); MEAN PLATELET VOLUME 6.1 fL (7.4-10.4); PLATELET COUNT 576 x10^3/uL (130-400); RED CELL DISTRIBUTION WIDTH 18.2 % (9.4-14.8)
[2017-03-24 08:34] LABS: ANION GAP 6 mmol/L (5-15); CALCIUM 8.9 mg/dL (8.5-10.1); CHLORIDE 100 mmol/L (98-107); CREATININE 0.51 mg/dL (0.7-1.3)
[2017-03-24 08:53] LABS: MD YES
[2017-03-24 09:02] LABS: BAND#(MANUAL) 0.21 x10^3/uL; BANDS%(MANUAL) 1 % (0-7); EOS#(MANUAL) 0.62 x10^3/uL (0.0-0.4); EOS% (MANUAL) 3 % (1-7); LYMPH#(MANUAL) 2.27 x10^3/uL (1-3.4); LYMPHS% (MANUAL) 11 % (22-44); METAMYELOCYTES# (MANUAL) 0.41 x10^3/uL (0-0); METAMYELOCYTES% (MANUAL) 2 % (0-1); MONOS#(MANUAL) 0.82 x10^3/uL (0.3-2.7); MONOS% (MANUAL) 4 % (2-9); MYELOCYTES# (MANUAL) 0.21 x10^3/uL (0-0); MYELOCYTES% (MANUAL) 1 % (0-0); SEG#(MANUAL) 16.07 x10^3/uL (1.8-6.8); SEGS% (MANUAL) 78 % (42-75)
[2017-03-24 09:03] LABS: <PLATELET ESTIMATE> INCREASED; <PLT MORPHOLOGY> NORMAL PLT MORPH; ANISOCYTOSIS 1+; POLYCHROMASIA 1+
[2017-03-24] MEDS: FLUCONAZOLE 400 MG/200 ML 200 ML IV SCH (11:10)
[2017-03-24] MEDS: SODIUM CHLORIDE FLUSH 10ML SYR IVF SCH ×2 (11:11→21:41)
[2017-03-24] MEDS: FAMOTIDINE 20 MG TABLET PO SCH ×2 (11:49→21:41)
[2017-03-24] MEDS: FLUOXETINE 10 MG CAP PO SCH (11:49)
[2017-03-24] MEDS: ENOXAPARIN 30 MG/0.3 ML SQ SCH ×2 (11:49→21:00)
[2017-03-24] MEDS: TAMSULOSIN 0.4 MG CAP.ER.24H PO SCH (11:49)
[2017-03-24 13:58] VITALS: BP 121/81
[2017-03-24 19:25] VITALS: BP 112/65
[2017-03-24] MEDS: SIMVASTATIN 40 MG TABLET PO SCH (21:41)
[2017-03-25 02:17] VITALS: BP 117/73
[2017-03-25 06:00] LABS: CHLORIDE 97 mmol/L (98-107)
[2017-03-25 06:07] LABS: MEAN CORPUSCULAR HEMOGLOBIN 31.8 pg (27.5-34.5); MEAN CORPUSCULAR HGB CONC 32.1 g/dL (33.2-36.2); MEAN CORPUSCULAR VOLUME 98.9 fL (81-97); MEAN PLATELET VOLUME 6.7 fL (7.4-10.4); PLATELET COUNT 544 x10^3/uL (130-400); RED BLOOD COUNT 2.65 x10^6/uL (4.38-5.82); RED CELL DISTRIBUTION WIDTH 17.9 % (9.4-14.8)
[2017-03-25 06:09] LABS: ANION GAP 5 mmol/L (5-15); CALCIUM 8.9 mg/dL (8.5-10.1); CREATININE 0.55 mg/dL (0.7-1.3)
[2017-03-25 06:31] LABS: MD YES
[2017-03-25 06:33] LABS: BAND#(MANUAL) 0.23 x10^3/uL; BANDS%(MANUAL) 1 % (0-7); EOS#(MANUAL) 0.93 x10^3/uL (0.0-0.4); EOS% (MANUAL) 4 % (1-7); LYMPH#(MANUAL) 3.48 x10^3/uL (1-3.4); LYMPHS% (MANUAL) 15 % (22-44); METAMYELOCYTES# (MANUAL) 0.46 x10^3/uL (0-0); METAMYELOCYTES% (MANUAL) 2 % (0-1); MONOS#(MANUAL) 2.09 x10^3/uL (0.3-2.7); MONOS% (MANUAL) 9 % (2-9); SEG#(MANUAL) 16.01 x10^3/uL (1.8-6.8); SEGS% (MANUAL) 69 % (42-75)
[2017-03-25 06:34] LABS: ANISOCYTOSIS 1+; POLYCHROMASIA 1+
[2017-03-25 06:35] LABS: <PLATELET ESTIMATE> INCREASED; <PLT MORPHOLOGY> NORMAL PLT MORPH
[2017-03-25 07:47] VITALS: BP 130/77
[2017-03-25] MEDS: ENOXAPARIN 30 MG/0.3 ML SQ SCH ×2 (09:56→20:49)
[2017-03-25] MEDS: SODIUM CHLORIDE FLUSH 10ML SYR IVF SCH ×2 (09:56→20:50)
[2017-03-25] MEDS: TAMSULOSIN 0.4 MG CAP.ER.24H PO SCH (09:56)
[2017-03-25] MEDS: FAMOTIDINE 20 MG TABLET PO SCH ×2 (09:56→20:49)
[2017-03-25] MEDS: FLUOXETINE 10 MG CAP PO SCH (09:56)
[2017-03-25] MEDS: FLUCONAZOLE 400 MG/200 ML 200 ML IV SCH (09:56)
[2017-03-25 13:18] VITALS: BP 116/69
[2017-03-25] MEDS ORDERED: MAGNESIUM SULFATE PMX 2GM/50ML 50 ML IV ONE (14:00)
[2017-03-25] MEDS: NEUTRA PHOS K 250 MG TABLET PO SCH ×2 (16:01→20:49)
[2017-03-25 18:48] VITALS: BP 110/57
[2017-03-25] MEDS: ARTIFICIAL TEARS 15 DROP/ML BOTTLE EACHEYE SCH (20:49)
[2017-03-25] MEDS: SIMVASTATIN 40 MG TABLET PO SCH (20:49)
[2017-03-26 01:09] VITALS: BP 113/60
[2017-03-26 05:18] LABS: MEAN CORPUSCULAR HEMOGLOBIN 31.6 pg (27.5-34.5); MEAN CORPUSCULAR HGB CONC 32.4 g/dL (33.2-36.2); MEAN CORPUSCULAR VOLUME 97.4 fL (81-97); MEAN PLATELET VOLUME 6.3 fL (7.4-10.4); PLATELET COUNT 544 x10^3/uL (130-400); RED BLOOD COUNT 2.61 x10^6/uL (4.38-5.82); RED CELL DISTRIBUTION WIDTH 17.9 % (9.4-14.8)
[2017-03-26 05:24] LABS: CHLORIDE 99 mmol/L (98-107)
[2017-03-26 05:36] LABS: ALANINE AMINOTRANSFERASE 30 U/L (12-78); ALBUMIN 1.7 g/dL (3.4-5.0); ALKALINE PHOSPHATASE 205 U/L (45-117); ANION GAP 6 mmol/L (5-15); BILIRUBIN,TOTAL 0.8 mg/dL (0.2-1.0); CALCIUM 8.5 mg/dL (8.5-10.1); CREATININE 0.49 mg/dL (0.7-1.3); TOTAL PROTEIN 6.6 g/dL (6.4-8.2)
[2017-03-26 06:20] LABS: MD YES
[2017-03-26 06:22] LABS: BAND#(MANUAL) 0.43 x10^3/uL; BANDS%(MANUAL) 2 % (0-7); EOS#(MANUAL) 0.85 x10^3/uL (0.0-0.4); EOS% (MANUAL) 4 % (1-7); LYMPH#(MANUAL) 2.98 x10^3/uL (1-3.4); LYMPHS% (MANUAL) 14 % (22-44); METAMYELOCYTES# (MANUAL) 0.21 x10^3/uL (0-0); METAMYELOCYTES% (MANUAL) 1 % (0-1); MONOS#(MANUAL) 1.49 x10^3/uL (0.3-2.7); MONOS% (MANUAL) 7 % (2-9); MYELOCYTES# (MANUAL) 0.21 x10^3/uL (0-0); MYELOCYTES% (MANUAL) 1 % (0-0); SEG#(MANUAL) 15.12 x10^3/uL (1.8-6.8); SEGS% (MANUAL) 71 % (42-75)
[2017-03-26 06:23] LABS: ANISOCYTOSIS 1+; POLYCHROMASIA 1+
[2017-03-26 06:24] LABS: <PLATELET ESTIMATE> INCREASED; <PLT MORPHOLOGY> NORMAL PLT MORPH
[2017-03-26 06:45] VITALS: BP_SYST 124; BP_SYST 135; BP_DIAS 71; BP_DIAS 76
[2017-03-26] MEDS: TAMSULOSIN 0.4 MG CAP.ER.24H PO SCH (08:31)
[2017-03-26] MEDS: FAMOTIDINE 20 MG TABLET PO SCH ×2 (08:31→22:57)
[2017-03-26] MEDS: ENOXAPARIN 30 MG/0.3 ML SQ SCH ×2 (08:31→22:57)
[2017-03-26] MEDS: FLUOXETINE 10 MG CAP PO SCH (08:32)
[2017-03-26] MEDS: SODIUM CHLORIDE FLUSH 10ML SYR IVF SCH ×2 (08:32→22:56)
[2017-03-26] MEDS: NEUTRA PHOS K 250 MG TABLET PO SCH ×3 (08:32→22:56)
[2017-03-26] MEDS: FLUCONAZOLE 400 MG/200 ML 200 ML IV SCH (09:56)
[2017-03-26 14:06] VITALS: BP 107/68
[2017-03-26] MEDS ORDERED: POTASSIUM CHLORIDE 20 MEQ TAB.ER.PRT PO ONE ×2 (16:00→21:00)
[2017-03-26 18:55] VITALS: BP 104/62
[2017-03-26] MEDS: SIMVASTATIN 40 MG TABLET PO SCH (22:57)
[2017-03-27 00:03] VITALS: BP 111/66
[2017-03-27 05:28] LABS: MEAN CORPUSCULAR HEMOGLOBIN 31.4 pg (27.5-34.5); MEAN CORPUSCULAR HGB CONC 32.1 g/dL (33.2-36.2); MEAN CORPUSCULAR VOLUME 97.6 fL (81-97); MEAN PLATELET VOLUME 6.5 fL (7.4-10.4); PLATELET COUNT 553 x10^3/uL (130-400); RED BLOOD COUNT 2.61 x10^6/uL (4.38-5.82); RED CELL DISTRIBUTION WIDTH 17.6 % (9.4-14.8)
[2017-03-27 05:42] LABS: ALBUMIN 1.7 g/dL (3.4-5.0); ANION GAP 6 mmol/L (5-15); CALCIUM 8.3 mg/dL (8.5-10.1); CHLORIDE 99 mmol/L (98-107)
[2017-03-27 05:47] LABS: CREATININE 0.52 mg/dL (0.7-1.3)
[2017-03-27 05:48] LABS: ALANINE AMINOTRANSFERASE 28 U/L (12-78); ALKALINE PHOSPHATASE 198 U/L (45-117); BILIRUBIN,TOTAL 0.5 mg/dL (0.2-1.0); TOTAL PROTEIN 6.3 g/dL (6.4-8.2)
[2017-03-27 05:53] LABS: BASOPHILS # (AUTO) 0.11 x10^3/uL (0-0.1); BASOPHILS % (AUTO) 1 % (0-1); EOSINOPHILS # (AUTO) 0.82 x10^3/uL (0-0.4); EOSINOPHILS % (AUTO) 4 % (1-7); LYMPHOCYTES # (AUTO) 2.56 x10^3/uL (1-3.4); LYMPHOCYTES % (AUTO) 14 % (22-44); MD SCAN; MONOCYTES # (AUTO) 1.83 x10^3/uL (0.2-0.8); MONOCYTES % (AUTO) 10 % (2-9); NEUTROPHILS # (AUTO) 13.56 x10^3/uL (1.8-6.8); NEUTROPHILS % (AUTO) 72 % (42-75)
[2017-03-27 06:45] VITALS: BP 104/61
[2017-03-27] MEDS ORDERED: MAGNESIUM SULFATE PMX 2GM/50ML 50 ML IV ONE (07:30)
[2017-03-27] MEDS ORDERED: POTASSIUM CHLORIDE 20 MEQ TAB.ER.PRT PO ONE (07:30)
[2017-03-27] MEDS: FLUCONAZOLE 400 MG/200 ML 200 ML IV SCH (08:28)
[2017-03-27] MEDS: TAMSULOSIN 0.4 MG CAP.ER.24H PO SCH (08:28)
[2017-03-27] MEDS: NEUTRA PHOS K 250 MG TABLET PO SCH (08:29)
[2017-03-27] MEDS: FLUOXETINE 10 MG CAP PO SCH (08:29)
[2017-03-27] MEDS: ENOXAPARIN 30 MG/0.3 ML SQ SCH ×2 (08:29→21:00)
[2017-03-27] MEDS: SODIUM CHLORIDE FLUSH 10ML SYR IVF SCH ×2 (09:00→21:01)
[2017-03-27 11:15] LABS: CULTURE INDICATED? YES; MICROSCOPIC INDICATED
[2017-03-27 12:43] VITALS: BP 113/69
[2017-03-27] MEDS: POTASSIUM CHLORIDE 20 MEQ TAB.ER.PRT PO SCH (14:42)
[2017-03-27 19:42] VITALS: BP 108/64
[2017-03-27] MEDS: SIMVASTATIN 40 MG TABLET PO SCH (21:01)
[2017-03-28 01:33] VITALS: BP 99/61
[2017-03-28 06:37] VITALS: BP 112/69
[2017-03-28 07:56] LABS: MEAN CORPUSCULAR HEMOGLOBIN 31.4 pg (27.5-34.5); MEAN CORPUSCULAR VOLUME 98.1 fL (81-97); MEAN PLATELET VOLUME 6.2 fL (7.4-10.4); PLATELET COUNT 538 x10^3/uL (130-400); RED BLOOD COUNT 2.77 x10^6/uL (4.38-5.82); RED CELL DISTRIBUTION WIDTH 17.9 % (9.4-14.8)
[2017-03-28 08:03] LABS: ALBUMIN 1.7 g/dL (3.4-5.0); ANION GAP 2 mmol/L (5-15); CALCIUM 8.7 mg/dL (8.5-10.1); CHLORIDE 101 mmol/L (98-107); CREATININE 0.52 mg/dL (0.7-1.3)
[2017-03-28] MEDS: TAMSULOSIN 0.4 MG CAP.ER.24H PO SCH (08:53)
[2017-03-28] MEDS: POTASSIUM CHLORIDE 20 MEQ TAB.ER.PRT PO SCH (08:53)
[2017-03-28] MEDS: FLUCONAZOLE 400 MG/200 ML 200 ML IV SCH (08:53)
[2017-03-28] MEDS: ENOXAPARIN 30 MG/0.3 ML SQ SCH ×2 (08:53→21:17)
[2017-03-28] MEDS: SODIUM CHLORIDE FLUSH 10ML SYR IVF SCH ×2 (08:54→21:17)
[2017-03-28] MEDS: FLUOXETINE 10 MG CAP PO SCH (08:54)
[2017-03-28 09:03] LABS: BASOPHILS # (AUTO) 0.12 x10^3/uL (0-0.1); BASOPHILS % (AUTO) 1 % (0-1); EOSINOPHILS # (AUTO) 0.74 x10^3/uL (0-0.4); EOSINOPHILS % (AUTO) 4 % (1-7); LYMPHOCYTES # (AUTO) 2.02 x10^3/uL (1-3.4); LYMPHOCYTES % (AUTO) 12 % (22-44); MD SCAN; MONOCYTES # (AUTO) 1.74 x10^3/uL (0.2-0.8); MONOCYTES % (AUTO) 10 % (2-9); NEUTROPHILS # (AUTO) 12.77 x10^3/uL (1.8-6.8); NEUTROPHILS % (AUTO) 74 % (42-75)
[2017-03-28 12:18] VITALS: BP 107/66
[2017-03-28 18:33] VITALS: BP 108/68
[2017-03-28] MEDS: SIMVASTATIN 40 MG TABLET PO SCH (21:17)
[2017-03-28] MEDS: HYDROcodone/APAP 5/325 TABLET PO PRN (21:21)
[2017-03-29 01:35] VITALS: BP 121/72
[2017-03-29 04:30] LABS: MEAN CORPUSCULAR HEMOGLOBIN 31.1 pg (27.5-34.5); MEAN CORPUSCULAR HGB CONC 31.7 g/dL (33.2-36.2); MEAN CORPUSCULAR VOLUME 98.2 fL (81-97); MEAN PLATELET VOLUME 6.6 fL (7.4-10.4); PLATELET COUNT 498 x10^3/uL (130-400); RED BLOOD COUNT 2.69 x10^6/uL (4.38-5.82); RED CELL DISTRIBUTION WIDTH 17.9 % (9.4-14.8)
[2017-03-29 04:33] LABS: ALBUMIN 1.7 g/dL (3.4-5.0); ANION GAP 5 mmol/L (5-15); CALCIUM 8.6 mg/dL (8.5-10.1); CHLORIDE 100 mmol/L (98-107); CREATININE 0.48 mg/dL (0.7-1.3)
[2017-03-29 05:19] LABS: BASOPHILS # (AUTO) 0.06 x10^3/uL (0-0.1); BASOPHILS % (AUTO) 0 % (0-1); EOSINOPHILS # (AUTO) 0.98 x10^3/uL (0-0.4); EOSINOPHILS % (AUTO) 6 % (1-7); LYMPHOCYTES % (AUTO) 15 % (22-44); MD SCAN; MONOCYTES % (AUTO) 10 % (2-9); NEUTROPHILS # (AUTO) 12.32 x10^3/uL (1.8-6.8); NEUTROPHILS % (AUTO) 69 % (42-75)
[2017-03-29 06:37] VITALS: BP 108/67
[2017-03-29] MEDS: HYDROcodone/APAP 5/325 TABLET PO PRN ×3 (06:39→22:10)
[2017-03-29] MEDS ORDERED: MAGNESIUM SULF. PMX 20GM/500ML 500 ML IV PRN (08:30)
[2017-03-29] MEDS ORDERED: MAGNESIUM SULFATE PMX 2GM/50ML 50 ML IV ONE (08:30)
[2017-03-29] MEDS: FLUCONAZOLE 400 MG/200 ML 200 ML IV SCH (08:51)
[2017-03-29] MEDS: POTASSIUM CHLORIDE 20 MEQ TAB.ER.PRT PO SCH (08:52)
[2017-03-29] MEDS: FLUOXETINE 10 MG CAP PO SCH (08:52)
[2017-03-29] MEDS: SODIUM CHLORIDE FLUSH 10ML SYR IVF SCH ×2 (08:52→20:01)
[2017-03-29] MEDS: TAMSULOSIN 0.4 MG CAP.ER.24H PO SCH (08:52)
[2017-03-29] MEDS: ENOXAPARIN 30 MG/0.3 ML SQ SCH ×2 (08:53→20:02)
[2017-03-29 13:14] VITALS: BP 112/69
[2017-03-29] MEDS: AMPICILLIN/SULBACTAM 3 GM in SODIUM CHLORIDE 0.9% 100 ML IV SCH ×2 (16:10→22:10)
[2017-03-29 18:41] VITALS: BP 108/67
[2017-03-29] MEDS: SIMVASTATIN 40 MG TABLET PO SCH (20:02)
[2017-03-30 01:04] VITALS: BP 100/63
[2017-03-30] MEDS: AMPICILLIN/SULBACTAM 3 GM in SODIUM CHLORIDE 0.9% 100 ML IV SCH ×3 (03:57→19:38)
[2017-03-30] MEDS: HYDROcodone/APAP 5/325 TABLET PO PRN (04:04)
[2017-03-30 05:22] LABS: MEAN CORPUSCULAR HGB CONC 31.8 g/dL (33.2-36.2); MEAN CORPUSCULAR VOLUME 97.3 fL (81-97); MEAN PLATELET VOLUME 6.8 fL (7.4-10.4); PLATELET COUNT 422 x10^3/uL (130-400); RED BLOOD COUNT 2.69 x10^6/uL (4.38-5.82); RED CELL DISTRIBUTION WIDTH 17.5 % (9.4-14.8)
[2017-03-30 05:32] LABS: ALBUMIN 1.7 g/dL (3.4-5.0); ANION GAP 5 mmol/L (5-15); CALCIUM 8.7 mg/dL (8.5-10.1); CHLORIDE 98 mmol/L (98-107); CREATININE 0.56 mg/dL (0.7-1.3)
[2017-03-30 06:01] LABS: BASOPHILS # (AUTO) 0.19 x10^3/uL (0-0.1); BASOPHILS % (AUTO) 1 % (0-1); EOSINOPHILS # (AUTO) 0.58 x10^3/uL (0-0.4); EOSINOPHILS % (AUTO) 3 % (1-7); LYMPHOCYTES # (AUTO) 1.69 x10^3/uL (1-3.4); LYMPHOCYTES % (AUTO) 8 % (22-44); MD SCAN; MONOCYTES # (AUTO) 1.78 x10^3/uL (0.2-0.8); MONOCYTES % (AUTO) 9 % (2-9); NEUTROPHILS # (AUTO) 15.87 x10^3/uL (1.8-6.8); NEUTROPHILS % (AUTO) 79 % (42-75)
[2017-03-30 06:36] VITALS: BP 130/75
[2017-03-30] MEDS: POTASSIUM CHLORIDE 20 MEQ TAB.ER.PRT PO SCH (10:40)
[2017-03-30] MEDS: TAMSULOSIN 0.4 MG CAP.ER.24H PO SCH (10:41)
[2017-03-30] MEDS: ENOXAPARIN 30 MG/0.3 ML SQ SCH ×2 (10:41→20:47)
[2017-03-30] MEDS: FLUOXETINE 10 MG CAP PO SCH (10:41)
[2017-03-30] MEDS: FLUCONAZOLE 400 MG/200 ML 200 ML IV SCH (10:44)
[2017-03-30] MEDS: SODIUM CHLORIDE FLUSH 10ML SYR IVF SCH ×2 (10:45→20:43)
[2017-03-30 13:58] VITALS: BP 121/74
[2017-03-30] MEDS ORDERED: SODIUM CHLORIDE 0.9%, 500ML IVBOLUS ONE (15:30)
[2017-03-30 18:25] VITALS: BP 104/64
[2017-03-30] MEDS: SIMVASTATIN 40 MG TABLET PO SCH (20:47)
[2017-03-31] MEDS: AMPICILLIN/SULBACTAM 3 GM in SODIUM CHLORIDE 0.9% 100 ML IV SCH ×4 (00:45→20:59)
[2017-03-31 00:48] VITALS: BP 122/68
[2017-03-31 05:31] LABS: ALBUMIN 1.6 g/dL (3.4-5.0); ANION GAP 5 mmol/L (5-15); CALCIUM 8.7 mg/dL (8.5-10.1); CHLORIDE 99 mmol/L (98-107); CREATININE 0.68 mg/dL (0.7-1.3)
[2017-03-31 05:43] LABS: MEAN CORPUSCULAR HEMOGLOBIN 31.1 pg (27.5-34.5); MEAN CORPUSCULAR HGB CONC 32.1 g/dL (33.2-36.2); MEAN CORPUSCULAR VOLUME 97.1 fL (81-97); PLATELET COUNT 408 x10^3/uL (130-400); RED CELL DISTRIBUTION WIDTH 17.4 % (9.4-14.8)
[2017-03-31 06:45] LABS: BASOPHILS # (AUTO) 0.07 x10^3/uL (0-0.1); BASOPHILS % (AUTO) 0 % (0-1); EOSINOPHILS # (AUTO) 0.67 x10^3/uL (0-0.4); EOSINOPHILS % (AUTO) 4 % (1-7); LYMPHOCYTES # (AUTO) 2.06 x10^3/uL (1-3.4); LYMPHOCYTES % (AUTO) 11 % (22-44); MD SCAN; MONOCYTES # (AUTO) 1.47 x10^3/uL (0.2-0.8); MONOCYTES % (AUTO) 8 % (2-9); NEUTROPHILS # (AUTO) 14.06 x10^3/uL (1.8-6.8); NEUTROPHILS % (AUTO) 77 % (42-75)
[2017-03-31 07:36] VITALS: BP 117/68
[2017-03-31] MEDS: HYDROcodone/APAP 5/325 TABLET PO PRN (08:07)
[2017-03-31] MEDS: FLUCONAZOLE 400 MG/200 ML 200 ML IV SCH (11:23)
[2017-03-31] MEDS: TAMSULOSIN 0.4 MG CAP.ER.24H PO SCH (11:24)
[2017-03-31] MEDS: ENOXAPARIN 30 MG/0.3 ML SQ SCH ×2 (11:24→20:59)
[2017-03-31] MEDS: SODIUM CHLORIDE FLUSH 10ML SYR IVF SCH ×2 (11:24→20:59)
[2017-03-31] MEDS: POTASSIUM CHLORIDE 20 MEQ TAB.ER.PRT PO SCH (11:24)
[2017-03-31] MEDS: FLUOXETINE 10 MG CAP PO SCH (11:24)
[2017-03-31 13:19] VITALS: BP 100/64
[2017-03-31 20:37] VITALS: BP 118/67
[2017-03-31] MEDS: SIMVASTATIN 40 MG TABLET PO SCH (20:59)
[2017-04-01 01:05] VITALS: BP 113/66
[2017-04-01] MEDS: AMPICILLIN/SULBACTAM 3 GM in SODIUM CHLORIDE 0.9% 100 ML IV SCH ×4 (03:22→23:07)
[2017-04-01 05:00] LABS: MEAN CORPUSCULAR HEMOGLOBIN 30.9 pg (27.5-34.5); MEAN CORPUSCULAR HGB CONC 31.8 g/dL (33.2-36.2); MEAN CORPUSCULAR VOLUME 97.1 fL (81-97); MEAN PLATELET VOLUME 6.9 fL (7.4-10.4); PLATELET COUNT 391 x10^3/uL (130-400); RED BLOOD COUNT 2.57 x10^6/uL (4.38-5.82); RED CELL DISTRIBUTION WIDTH 17.5 % (9.4-14.8)
[2017-04-01 05:12] LABS: ALBUMIN 1.5 g/dL (3.4-5.0); ANION GAP 6 mmol/L (5-15); CALCIUM 8.9 mg/dL (8.5-10.1); CHLORIDE 99 mmol/L (98-107); CREATININE 0.57 mg/dL (0.7-1.3)
[2017-04-01 05:49] LABS: BASOPHILS # (AUTO) 0.09 x10^3/uL (0-0.1); BASOPHILS % (AUTO) 1 % (0-1); EOSINOPHILS # (AUTO) 1.12 x10^3/uL (0-0.4); EOSINOPHILS % (AUTO) 7 % (1-7); LYMPHOCYTES # (AUTO) 2.14 x10^3/uL (1-3.4); LYMPHOCYTES % (AUTO) 14 % (22-44); MD SCAN; MONOCYTES # (AUTO) 1.49 x10^3/uL (0.2-0.8); MONOCYTES % (AUTO) 9 % (2-9); NEUTROPHILS # (AUTO) 11.03 x10^3/uL (1.8-6.8); NEUTROPHILS % (AUTO) 70 % (42-75)
[2017-04-01 07:52] VITALS: BP 118/66
[2017-04-01 08:25] LABS: CLOSTRIDIUM DIFFICILE ANTIGEN NEGATIVE; CLOSTRIDIUM DIFFICILE TOXIN NEGATIVE (Negative)
[2017-04-01] MEDS: TAMSULOSIN 0.4 MG CAP.ER.24H PO SCH (09:52)
[2017-04-01] MEDS: FLUCONAZOLE 400 MG/200 ML 200 ML IV SCH (09:52)
[2017-04-01] MEDS: FLUOXETINE 10 MG CAP PO SCH (09:53)
[2017-04-01] MEDS: ENOXAPARIN 30 MG/0.3 ML SQ SCH ×2 (09:53→23:06)
[2017-04-01] MEDS: POTASSIUM CHLORIDE 20 MEQ TAB.ER.PRT PO SCH (09:53)
[2017-04-01] MEDS: HYDROcodone/APAP 5/325 TABLET PO PRN ×2 (09:53→23:39)
[2017-04-01] MEDS: SODIUM CHLORIDE FLUSH 10ML SYR IVF SCH ×2 (09:53→23:06)
[2017-04-01 13:00] VITALS: BP 115/67
[2017-04-01 18:32] VITALS: BP 115/68
[2017-04-01] MEDS: SIMVASTATIN 40 MG TABLET PO SCH (23:06)
[2017-04-02 00:36] VITALS: BP 112/66
[2017-04-02] MEDS: AMPICILLIN/SULBACTAM 3 GM in SODIUM CHLORIDE 0.9% 100 ML IV SCH ×4 (03:27→21:47)
[2017-04-02 06:08] LABS: BASOPHILS # (AUTO) 0.07 x10^3/uL (0-0.1); BASOPHILS % (AUTO) 1 % (0-1); EOSINOPHILS # (AUTO) 0.87 x10^3/uL (0-0.4); EOSINOPHILS % (AUTO) 7 % (1-7); LYMPHOCYTES # (AUTO) 1.86 x10^3/uL (1-3.4); LYMPHOCYTES % (AUTO) 14 % (22-44); MD NO; MEAN CORPUSCULAR HEMOGLOBIN 30.6 pg (27.5-34.5); MEAN CORPUSCULAR HGB CONC 31.5 g/dL (33.2-36.2); MEAN CORPUSCULAR VOLUME 97.1 fL (81-97); MONOCYTES % (AUTO) 11 % (2-9); NEUTROPHILS # (AUTO) 8.99 x10^3/uL (1.8-6.8); NEUTROPHILS % (AUTO) 68 % (42-75); PLATELET COUNT 407 x10^3/uL (130-400); RED BLOOD COUNT 2.56 x10^6/uL (4.38-5.82); RED CELL DISTRIBUTION WIDTH 17.5 % (9.4-14.8)
[2017-04-02 06:09] LABS: ALBUMIN 1.6 g/dL (3.4-5.0); ANION GAP 7 mmol/L (5-15); CALCIUM 9.2 mg/dL (8.5-10.1); CHLORIDE 99 mmol/L (98-107); CREATININE 0.69 mg/dL (0.7-1.3)
[2017-04-02 07:30] VITALS: BP 125/71
[2017-04-02] MEDS: FLUCONAZOLE 400 MG/200 ML 200 ML IV SCH (08:10)
[2017-04-02] MEDS: POTASSIUM CHLORIDE 20 MEQ TAB.ER.PRT PO SCH (10:18)
[2017-04-02] MEDS: TAMSULOSIN 0.4 MG CAP.ER.24H PO SCH (10:18)
[2017-04-02] MEDS: SODIUM CHLORIDE FLUSH 10ML SYR IVF SCH ×2 (10:18→21:47)
[2017-04-02] MEDS: ENOXAPARIN 30 MG/0.3 ML SQ SCH ×2 (10:18→21:47)
[2017-04-02] MEDS: FLUOXETINE 10 MG CAP PO SCH (10:18)
[2017-04-02 15:34] VITALS: BP 109/64
[2017-04-02 19:12] VITALS: BP 123/66
[2017-04-02] MEDS: SIMVASTATIN 40 MG TABLET PO SCH (21:47)
[2017-04-02] MEDS: HYDROcodone/APAP 5/325 TABLET PO PRN (21:47)
[2017-04-03 02:22] VITALS: BP 120/82
[2017-04-03] MEDS: AMPICILLIN/SULBACTAM 3 GM in SODIUM CHLORIDE 0.9% 100 ML IV SCH ×4 (04:47→21:04)
[2017-04-03 06:36] VITALS: BP 128/69
[2017-04-03] MEDS: POTASSIUM CHLORIDE 20 MEQ TAB.ER.PRT PO SCH (08:16)
[2017-04-03] MEDS: FLUCONAZOLE 400 MG/200 ML 200 ML IV SCH (08:17)
[2017-04-03] MEDS: FLUOXETINE 10 MG CAP PO SCH (10:30)
[2017-04-03] MEDS: ENOXAPARIN 30 MG/0.3 ML SQ SCH ×2 (10:30→21:00)
[2017-04-03] MEDS: TAMSULOSIN 0.4 MG CAP.ER.24H PO SCH (10:30)
[2017-04-03] MEDS: SODIUM CHLORIDE FLUSH 10ML SYR IVF SCH ×2 (10:31→21:04)
[2017-04-03 13:32] VITALS: BP 125/71
[2017-04-03] MEDS: FLUCONAZOLE 200 MG TABLET PO SCH (14:07)
[2017-04-03 18:55] VITALS: BP 120/82
[2017-04-03] MEDS: SIMVASTATIN 40 MG TABLET PO SCH (21:04)
[2017-04-03] MEDS: HYDROcodone/APAP 5/325 TABLET PO PRN (21:04)
[2017-04-04 00:27] VITALS: BP 138/78
[2017-04-04] MEDS: HYDROcodone/APAP 5/325 TABLET PO PRN (01:24)
[2017-04-04] MEDS: AMPICILLIN/SULBACTAM 3 GM in SODIUM CHLORIDE 0.9% 100 ML IV SCH ×4 (03:29→21:40)
[2017-04-04 05:58] LABS: CHLORIDE 97 mmol/L (98-107)
[2017-04-04 06:00] LABS: BASOPHILS # (AUTO) 0.04 x10^3/uL (0-0.1); BASOPHILS % (AUTO) 0 % (0-1); EOSINOPHILS # (AUTO) 0.67 x10^3/uL (0-0.4); EOSINOPHILS % (AUTO) 5 % (1-7); LYMPHOCYTES # (AUTO) 2.31 x10^3/uL (1-3.4); LYMPHOCYTES % (AUTO) 19 % (22-44); MD NO; MEAN CORPUSCULAR HEMOGLOBIN 30.9 pg (27.5-34.5); MEAN CORPUSCULAR HGB CONC 32.3 g/dL (33.2-36.2); MEAN CORPUSCULAR VOLUME 95.9 fL (81-97); MEAN PLATELET VOLUME 6.8 fL (7.4-10.4); MONOCYTES # (AUTO) 1.34 x10^3/uL (0.2-0.8); MONOCYTES % (AUTO) 11 % (2-9); NEUTROPHILS # (AUTO) 7.96 x10^3/uL (1.8-6.8); NEUTROPHILS % (AUTO) 65 % (42-75); PLATELET COUNT 493 x10^3/uL (130-400); RED BLOOD COUNT 2.74 x10^6/uL (4.38-5.82); RED CELL DISTRIBUTION WIDTH 17.6 % (9.4-14.8)
[2017-04-04 06:22] LABS: HCT (SEDRATE) 24.8 % (39.2-51.8)
[2017-04-04 06:31] LABS: ALANINE AMINOTRANSFERASE 46 U/L (12-78); ALBUMIN 1.6 g/dL (3.4-5.0); ALKALINE PHOSPHATASE 226 U/L (45-117); ANION GAP 5 mmol/L (5-15); BILIRUBIN,TOTAL 0.4 mg/dL (0.2-1.0); CALCIUM 9.2 mg/dL (8.5-10.1); CREATININE 0.57 mg/dL (0.7-1.3); TOTAL PROTEIN 6.6 g/dL (6.4-8.2)
[2017-04-04 06:55] VITALS: BP 132/76
[2017-04-04] MEDS ORDERED: POTASSIUM CHLORIDE 20 MEQ TAB.ER.PRT PO ONE (07:30)
[2017-04-04] MEDS: POTASSIUM CHLORIDE 20 MEQ TAB.ER.PRT PO SCH (09:08)
[2017-04-04] MEDS: FLUOXETINE 10 MG CAP PO SCH (09:09)
[2017-04-04] MEDS: ENOXAPARIN 30 MG/0.3 ML SQ SCH ×2 (09:09→21:40)
[2017-04-04] MEDS: TAMSULOSIN 0.4 MG CAP.ER.24H PO SCH (09:09)
[2017-04-04] MEDS: SODIUM CHLORIDE FLUSH 10ML SYR IVF SCH ×2 (09:10→21:40)
[2017-04-04] MEDS: FLUCONAZOLE 200 MG TABLET PO SCH (12:37)
[2017-04-04 13:28] VITALS: BP 126/70
[2017-04-04 19:31] VITALS: BP 123/69
[2017-04-04] MEDS: SIMVASTATIN 40 MG TABLET PO SCH (21:40)
[2017-04-05 01:16] VITALS: BP 137/81
[2017-04-05] MEDS: AMPICILLIN/SULBACTAM 3 GM in SODIUM CHLORIDE 0.9% 100 ML IV SCH ×4 (02:59→21:04)
[2017-04-05 08:04] VITALS: BP 127/74
[2017-04-05] MEDS: FLUOXETINE 10 MG CAP PO SCH (08:41)
[2017-04-05] MEDS: SODIUM CHLORIDE FLUSH 10ML SYR IVF SCH ×2 (08:41→21:04)
[2017-04-05] MEDS: TAMSULOSIN 0.4 MG CAP.ER.24H PO SCH (08:41)
[2017-04-05] MEDS: ENOXAPARIN 30 MG/0.3 ML SQ SCH ×2 (08:42→21:04)
[2017-04-05] MEDS: POTASSIUM CHLORIDE 20 MEQ TAB.ER.PRT PO SCH (08:42)
[2017-04-05 12:46] LABS: ALANINE AMINOTRANSFERASE 50 U/L (12-78); ALBUMIN 1.6 g/dL (3.4-5.0); ANION GAP 3 mmol/L (5-15); CALCIUM 8.8 mg/dL (8.5-10.1); CHLORIDE 100 mmol/L (98-107)
[2017-04-05 12:48] LABS: ALKALINE PHOSPHATASE 245 U/L (45-117); BILIRUBIN,TOTAL 0.4 mg/dL (0.2-1.0); CREATININE 0.52 mg/dL (0.7-1.3); TOTAL PROTEIN 6.6 g/dL (6.4-8.2)
[2017-04-05] MEDS: FLUCONAZOLE 200 MG TABLET PO SCH (12:59)
[2017-04-05 13:28] VITALS: BP 130/76
[2017-04-05 19:45] VITALS: BP 120/70
[2017-04-05] MEDS: SIMVASTATIN 40 MG TABLET PO SCH (21:04)
[2017-04-06 01:23] VITALS: BP 125/71
[2017-04-06] MEDS: AMPICILLIN/SULBACTAM 3 GM in SODIUM CHLORIDE 0.9% 100 ML IV SCH ×4 (03:15→20:52)
[2017-04-06 06:14] LABS: BASOPHILS # (AUTO) 0.06 x10^3/uL (0-0.1); BASOPHILS % (AUTO) 1 % (0-1); EOSINOPHILS # (AUTO) 0.82 x10^3/uL (0-0.4); EOSINOPHILS % (AUTO) 6 % (1-7); LYMPHOCYTES % (AUTO) 17 % (22-44); MD NO; MEAN CORPUSCULAR HGB CONC 31.5 g/dL (33.2-36.2); MEAN CORPUSCULAR VOLUME 95.1 fL (81-97); MEAN PLATELET VOLUME 6.3 fL (7.4-10.4); MONOCYTES # (AUTO) 1.13 x10^3/uL (0.2-0.8); MONOCYTES % (AUTO) 9 % (2-9); NEUTROPHILS # (AUTO) 8.71 x10^3/uL (1.8-6.8); NEUTROPHILS % (AUTO) 67 % (42-75); PLATELET COUNT 550 x10^3/uL (130-400); RED BLOOD COUNT 2.85 x10^6/uL (4.38-5.82); RED CELL DISTRIBUTION WIDTH 17.3 % (9.4-14.8)
[2017-04-06 06:22] LABS: ALANINE AMINOTRANSFERASE 45 U/L (12-78); ALBUMIN 1.7 g/dL (3.4-5.0); ANION GAP 6 mmol/L (5-15); CALCIUM 8.6 mg/dL (8.5-10.1); CHLORIDE 98 mmol/L (98-107); CREATININE 0.53 mg/dL (0.7-1.3)
[2017-04-06 06:25] LABS: ALKALINE PHOSPHATASE 232 U/L (45-117); BILIRUBIN,TOTAL 0.4 mg/dL (0.2-1.0); TOTAL PROTEIN 6.8 g/dL (6.4-8.2)
[2017-04-06 06:55] VITALS: BP 112/67
[2017-04-06] MEDS ORDERED: POTASSIUM CHLORIDE 20 MEQ TAB.ER.PRT PO ONE (07:30)
[2017-04-06] MEDS: POTASSIUM CHLORIDE 20 MEQ TAB.ER.PRT PO SCH (08:00)
[2017-04-06] MEDS: FLUOXETINE 10 MG CAP PO SCH (09:47)
[2017-04-06] MEDS: ENOXAPARIN 30 MG/0.3 ML SQ SCH ×2 (09:47→20:52)
[2017-04-06] MEDS: TAMSULOSIN 0.4 MG CAP.ER.24H PO SCH (09:47)
[2017-04-06] MEDS: SODIUM CHLORIDE FLUSH 10ML SYR IVF SCH ×2 (09:47→20:53)
[2017-04-06] MEDS ORDERED: LOPERAMIDE 2 MG CAPSULE PO PRN (11:30)
[2017-04-06] MEDS: FLUCONAZOLE 200 MG TABLET PO SCH (14:45)
[2017-04-06 17:30] VITALS: BP 121/78
[2017-04-06 19:13] VITALS: BP 116/71
[2017-04-06] MEDS: SIMVASTATIN 40 MG TABLET PO SCH (20:52)
[2017-04-07 01:50] VITALS: BP 127/79
[2017-04-07] MEDS: AMPICILLIN/SULBACTAM 3 GM in SODIUM CHLORIDE 0.9% 100 ML IV SCH ×4 (03:21→20:34)
[2017-04-07 07:10] VITALS: BP 152/83
[2017-04-07] MEDS: FLUOXETINE 10 MG CAP PO SCH (08:52)
[2017-04-07] MEDS: POTASSIUM CHLORIDE 20 MEQ TAB.ER.PRT PO SCH (08:52)
[2017-04-07] MEDS: TAMSULOSIN 0.4 MG CAP.ER.24H PO SCH (08:52)
[2017-04-07] MEDS: ENOXAPARIN 30 MG/0.3 ML SQ SCH ×2 (08:52→20:34)
[2017-04-07] MEDS: SODIUM CHLORIDE FLUSH 10ML SYR IVF SCH ×2 (08:53→20:28)
[2017-04-07 13:39] VITALS: BP 118/62
[2017-04-07] MEDS: FLUCONAZOLE 200 MG TABLET PO SCH (15:02)
[2017-04-07 19:05] VITALS: BP 134/79
[2017-04-07] MEDS: SIMVASTATIN 40 MG TABLET PO SCH (20:34)
[2017-04-08] MEDS: AMPICILLIN/SULBACTAM 3 GM in SODIUM CHLORIDE 0.9% 100 ML IV SCH ×4 (02:56→20:59)
[2017-04-08 02:58] VITALS: BP 119/67
[2017-04-08 08:27] VITALS: BP 118/72
[2017-04-08] MEDS: POTASSIUM CHLORIDE 20 MEQ TAB.ER.PRT PO SCH (08:29)
[2017-04-08] MEDS: SODIUM CHLORIDE FLUSH 10ML SYR IVF SCH ×2 (08:29→20:59)
[2017-04-08] MEDS: TAMSULOSIN 0.4 MG CAP.ER.24H PO SCH (08:30)
[2017-04-08] MEDS: FLUOXETINE 10 MG CAP PO SCH (08:30)
[2017-04-08] MEDS: ENOXAPARIN 30 MG/0.3 ML SQ SCH ×2 (08:30→20:59)
[2017-04-08] MEDS: FLUCONAZOLE 200 MG TABLET PO SCH (13:34)
[2017-04-08 13:50] VITALS: BP 126/70
[2017-04-08 20:15] VITALS: BP 125/62
[2017-04-08] MEDS: SIMVASTATIN 40 MG TABLET PO SCH (20:59)
[2017-04-09 01:37] VITALS: BP 113/66
[2017-04-09] MEDS: AMPICILLIN/SULBACTAM 3 GM in SODIUM CHLORIDE 0.9% 100 ML IV SCH ×4 (03:21→20:37)
[2017-04-09 07:00] VITALS: BP 112/69
[2017-04-09] MEDS: SODIUM CHLORIDE FLUSH 10ML SYR IVF SCH ×2 (07:38→20:38)
[2017-04-09] MEDS: TAMSULOSIN 0.4 MG CAP.ER.24H PO SCH (07:39)
[2017-04-09] MEDS: ENOXAPARIN 30 MG/0.3 ML SQ SCH ×2 (07:39→20:38)
[2017-04-09] MEDS: POTASSIUM CHLORIDE 20 MEQ TAB.ER.PRT PO SCH (07:39)
[2017-04-09] MEDS: FLUOXETINE 10 MG CAP PO SCH (07:39)
[2017-04-09] MEDS: FLUCONAZOLE 200 MG TABLET PO SCH (13:04)
[2017-04-09 15:03] VITALS: BP 120/70
[2017-04-09 20:28] VITALS: BP 122/69
[2017-04-09] MEDS: SIMVASTATIN 40 MG TABLET PO SCH (20:38)
[2017-04-10 01:44] VITALS: BP 131/75
[2017-04-10] MEDS: AMPICILLIN/SULBACTAM 3 GM in SODIUM CHLORIDE 0.9% 100 ML IV SCH ×4 (02:31→21:07)
[2017-04-10 05:40] LABS: ALBUMIN 1.7 g/dL (3.4-5.0); CALCIUM 8.6 mg/dL (8.5-10.1); CHLORIDE 98 mmol/L (98-107); CREATININE 0.48 mg/dL (0.7-1.3)
[2017-04-10 05:49] LABS: ANION GAP 6 mmol/L (5-15)
[2017-04-10 05:52] LABS: BASOPHILS # (AUTO) 0.08 x10^3/uL (0-0.1); BASOPHILS % (AUTO) 1 % (0-1); EOSINOPHILS # (AUTO) 1.11 x10^3/uL (0-0.4); EOSINOPHILS % (AUTO) 9 % (1-7); LYMPHOCYTES # (AUTO) 2.16 x10^3/uL (1-3.4); LYMPHOCYTES % (AUTO) 17 % (22-44); MD NO; MEAN CORPUSCULAR HGB CONC 31.4 g/dL (33.2-36.2); MEAN CORPUSCULAR VOLUME 95.4 fL (81-97); MEAN PLATELET VOLUME 6.8 fL (7.4-10.4); MONOCYTES # (AUTO) 1.04 x10^3/uL (0.2-0.8); MONOCYTES % (AUTO) 8 % (2-9); NEUTROPHILS # (AUTO) 8.29 x10^3/uL (1.8-6.8); NEUTROPHILS % (AUTO) 65 % (42-75); PLATELET COUNT 537 x10^3/uL (130-400); RED BLOOD COUNT 3.17 x10^6/uL (4.38-5.82); RED CELL DISTRIBUTION WIDTH 17.3 % (9.4-14.8)
[2017-04-10 06:45] VITALS: BP 127/71
[2017-04-10] MEDS: TAMSULOSIN 0.4 MG CAP.ER.24H PO SCH (08:29)
[2017-04-10] MEDS: FLUOXETINE 10 MG CAP PO SCH (08:29)
[2017-04-10] MEDS: ENOXAPARIN 30 MG/0.3 ML SQ SCH ×2 (08:29→21:06)
[2017-04-10] MEDS: POTASSIUM CHLORIDE 20 MEQ TAB.ER.PRT PO SCH (08:30)
[2017-04-10] MEDS ORDERED: POTASSIUM CHLORIDE 20 MEQ TAB.ER.PRT PO ONE (08:30)
[2017-04-10] MEDS: SODIUM CHLORIDE FLUSH 10ML SYR IVF SCH ×2 (08:30→21:00)
[2017-04-10] MEDS: FLUCONAZOLE 200 MG TABLET PO SCH (11:48)
[2017-04-10 13:04] VITALS: BP 106/68
[2017-04-10 21:00] VITALS: BP 136/76
[2017-04-10] MEDS: SIMVASTATIN 40 MG TABLET PO SCH (21:06)
[2017-04-11 03:26] VITALS: BP 127/73
[2017-04-11] MEDS: AMPICILLIN/SULBACTAM 3 GM in SODIUM CHLORIDE 0.9% 100 ML IV SCH ×4 (03:33→21:52)
[2017-04-11 05:37] LABS: BASOPHILS # (AUTO) 0.06 x10^3/uL (0-0.1); BASOPHILS % (AUTO) 1 % (0-1); EOSINOPHILS # (AUTO) 0.91 x10^3/uL (0-0.4); EOSINOPHILS % (AUTO) 8 % (1-7); LYMPHOCYTES # (AUTO) 2.16 x10^3/uL (1-3.4); LYMPHOCYTES % (AUTO) 18 % (22-44); MD NO; MEAN CORPUSCULAR HGB CONC 31.7 g/dL (33.2-36.2); MEAN CORPUSCULAR VOLUME 94.5 fL (81-97); MEAN PLATELET VOLUME 6.6 fL (7.4-10.4); MONOCYTES # (AUTO) 0.88 x10^3/uL (0.2-0.8); MONOCYTES % (AUTO) 7 % (2-9); NEUTROPHILS # (AUTO) 8.02 x10^3/uL (1.8-6.8); NEUTROPHILS % (AUTO) 67 % (42-75); PLATELET COUNT 480 x10^3/uL (130-400); RED BLOOD COUNT 3.22 x10^6/uL (4.38-5.82); RED CELL DISTRIBUTION WIDTH 16.9 % (9.4-14.8)
[2017-04-11 05:46] LABS: ALBUMIN 1.7 g/dL (3.4-5.0); ANION GAP 5 mmol/L (5-15); CALCIUM 8.3 mg/dL (8.5-10.1); CHLORIDE 99 mmol/L (98-107)
[2017-04-11 05:55] LABS: ALANINE AMINOTRANSFERASE 32 U/L (12-78); ALKALINE PHOSPHATASE 190 U/L (45-117); BILIRUBIN,TOTAL 0.4 mg/dL (0.2-1.0); TOTAL PROTEIN 6.6 g/dL (6.4-8.2)
[2017-04-11 06:40] LABS: HCT (SEDRATE) 30.3 % (39.2-51.8)
[2017-04-11 06:53] VITALS: BP 122/75
[2017-04-11] MEDS: POTASSIUM CHLORIDE 20 MEQ TAB.ER.PRT PO SCH (08:00)
[2017-04-11] MEDS: FLUOXETINE 10 MG CAP PO SCH (08:30)
[2017-04-11] MEDS: TAMSULOSIN 0.4 MG CAP.ER.24H PO SCH (08:30)
[2017-04-11] MEDS: SODIUM CHLORIDE FLUSH 10ML SYR IVF SCH ×2 (08:31→19:32)
[2017-04-11] MEDS: ENOXAPARIN 30 MG/0.3 ML SQ SCH ×2 (08:32→21:52)
[2017-04-11] MEDS ORDERED: POTASSIUM CHLORIDE 20 MEQ TAB.ER.PRT PO ONE (09:30)
[2017-04-11] MEDS: FLUCONAZOLE 200 MG TABLET PO SCH (10:53)
[2017-04-11 14:29] VITALS: BP 138/71
[2017-04-11 19:12] VITALS: BP 127/70
[2017-04-11] MEDS: SIMVASTATIN 40 MG TABLET PO SCH (21:52)
[2017-04-12 02:14] VITALS: BP 124/70
[2017-04-12] MEDS: AMPICILLIN/SULBACTAM 3 GM in SODIUM CHLORIDE 0.9% 100 ML IV SCH ×4 (04:08→20:37)
[2017-04-12 05:24] LABS: BASOPHILS # (AUTO) 0.11 x10^3/uL (0-0.1); BASOPHILS % (AUTO) 1 % (0-1); EOSINOPHILS # (AUTO) 1.11 x10^3/uL (0-0.4); EOSINOPHILS % (AUTO) 9 % (1-7); LYMPHOCYTES # (AUTO) 2.33 x10^3/uL (1-3.4); LYMPHOCYTES % (AUTO) 19 % (22-44); MD NO; MEAN CORPUSCULAR HEMOGLOBIN 29.9 pg (27.5-34.5); MEAN CORPUSCULAR HGB CONC 31.4 g/dL (33.2-36.2); MEAN PLATELET VOLUME 6.9 fL (7.4-10.4); MONOCYTES % (AUTO) 7 % (2-9); NEUTROPHILS % (AUTO) 64 % (42-75); PLATELET COUNT 464 x10^3/uL (130-400); RED BLOOD COUNT 3.25 x10^6/uL (4.38-5.82); RED CELL DISTRIBUTION WIDTH 16.9 % (9.4-14.8)
[2017-04-12 05:28] LABS: ALBUMIN 1.8 g/dL (3.4-5.0); CALCIUM 8.8 mg/dL (8.5-10.1); CHLORIDE 100 mmol/L (98-107)
[2017-04-12 05:29] LABS: CREATININE 0.57 mg/dL (0.7-1.3)
[2017-04-12 05:41] LABS: ANION GAP 6 mmol/L (5-15)
[2017-04-12 07:35] VITALS: BP 125/81
[2017-04-12] MEDS: POTASSIUM CHLORIDE 20 MEQ TAB.ER.PRT PO SCH (09:53)
[2017-04-12] MEDS: TAMSULOSIN 0.4 MG CAP.ER.24H PO SCH (09:53)
[2017-04-12] MEDS: FLUOXETINE 10 MG CAP PO SCH (09:53)
[2017-04-12] MEDS: SODIUM CHLORIDE FLUSH 10ML SYR IVF SCH ×2 (09:54→20:37)
[2017-04-12] MEDS: FLUCONAZOLE 200 MG TABLET PO SCH (09:54)
[2017-04-12] MEDS: ENOXAPARIN 30 MG/0.3 ML SQ SCH ×2 (09:54→20:36)
[2017-04-12] MEDS: ACETAMINOPHEN 325 MG TABLET PO PRN (10:53)
[2017-04-12 14:59] VITALS: BP 131/79
[2017-04-12 18:54] VITALS: BP 120/74
[2017-04-12] MEDS: ARTIFICIAL TEARS 15 DROP/ML BOTTLE EACHEYE SCH (20:36)
[2017-04-12] MEDS: SIMVASTATIN 40 MG TABLET PO SCH (20:37)
[2017-04-13 00:49] VITALS: BP 118/74
[2017-04-13] MEDS: AMPICILLIN/SULBACTAM 3 GM in SODIUM CHLORIDE 0.9% 100 ML IV SCH ×4 (02:51→21:12)
[2017-04-13 05:14] LABS: BASOPHILS # (AUTO) 0.06 x10^3/uL (0-0.1); BASOPHILS % (AUTO) 0 % (0-1); EOSINOPHILS # (AUTO) 1.15 x10^3/uL (0-0.4); EOSINOPHILS % (AUTO) 9 % (1-7); LYMPHOCYTES # (AUTO) 2.61 x10^3/uL (1-3.4); LYMPHOCYTES % (AUTO) 20 % (22-44); MD NO; MEAN CORPUSCULAR HEMOGLOBIN 29.7 pg (27.5-34.5); MEAN CORPUSCULAR HGB CONC 31.3 g/dL (33.2-36.2); MEAN CORPUSCULAR VOLUME 94.7 fL (81-97); MEAN PLATELET VOLUME 6.6 fL (7.4-10.4); MONOCYTES # (AUTO) 0.93 x10^3/uL (0.2-0.8); MONOCYTES % (AUTO) 7 % (2-9); NEUTROPHILS # (AUTO) 8.08 x10^3/uL (1.8-6.8); NEUTROPHILS % (AUTO) 63 % (42-75); PLATELET COUNT 464 x10^3/uL (130-400); RED CELL DISTRIBUTION WIDTH 17.1 % (9.4-14.8)
[2017-04-13 05:27] LABS: ALBUMIN 1.8 g/dL (3.4-5.0); ANION GAP 3 mmol/L (5-15); CALCIUM 8.6 mg/dL (8.5-10.1); CHLORIDE 96 mmol/L (98-107)
[2017-04-13 07:39] VITALS: BP 129/77
[2017-04-13] MEDS ORDERED: MAGNESIUM SULFATE PMX 2GM/50ML 50 ML IV ONE (08:00)
[2017-04-13] MEDS: FLUOXETINE 10 MG CAP PO SCH (08:31)
[2017-04-13] MEDS: ENOXAPARIN 30 MG/0.3 ML SQ SCH ×2 (08:31→21:12)
[2017-04-13] MEDS: POTASSIUM CHLORIDE 20 MEQ TAB.ER.PRT PO SCH (08:32)
[2017-04-13] MEDS: ARTIFICIAL TEARS 15 DROP/ML BOTTLE EACHEYE SCH ×2 (08:32→21:11)
[2017-04-13] MEDS: TAMSULOSIN 0.4 MG CAP.ER.24H PO SCH (08:32)
[2017-04-13] MEDS: FLUCONAZOLE 200 MG TABLET PO SCH (08:32)
[2017-04-13] MEDS: SODIUM CHLORIDE FLUSH 10ML SYR IVF SCH ×2 (09:00→21:12)
[2017-04-13 13:03] VITALS: BP 114/70
[2017-04-13 18:55] VITALS: BP 113/66
[2017-04-13] MEDS: SIMVASTATIN 40 MG TABLET PO SCH (21:12)
[2017-04-14 01:50] VITALS: BP 134/76
[2017-04-14] MEDS: AMPICILLIN/SULBACTAM 3 GM in SODIUM CHLORIDE 0.9% 100 ML IV SCH ×4 (03:06→21:17)
[2017-04-14 06:08] VITALS: BP 116/71
[2017-04-14] MEDS: POTASSIUM CHLORIDE 20 MEQ TAB.ER.PRT PO SCH (09:18)
[2017-04-14] MEDS: ENOXAPARIN 30 MG/0.3 ML SQ SCH ×2 (09:18→20:07)
[2017-04-14] MEDS: TAMSULOSIN 0.4 MG CAP.ER.24H PO SCH (09:18)
[2017-04-14] MEDS: FLUOXETINE 10 MG CAP PO SCH (09:18)
[2017-04-14] MEDS: SODIUM CHLORIDE FLUSH 10ML SYR IVF SCH ×2 (09:18→20:08)
[2017-04-14] MEDS: ARTIFICIAL TEARS 15 DROP/ML BOTTLE EACHEYE SCH ×2 (09:22→20:07)
[2017-04-14] MEDS: FLUCONAZOLE 200 MG TABLET PO SCH (12:38)
[2017-04-14 15:32] VITALS: BP 106/66
[2017-04-14 19:30] VITALS: BP 122/73
[2017-04-14] MEDS: SIMVASTATIN 40 MG TABLET PO SCH (20:07)
[2017-04-15 00:20] VITALS: BP 109/67
[2017-04-15] MEDS: AMPICILLIN/SULBACTAM 3 GM in SODIUM CHLORIDE 0.9% 100 ML IV SCH ×4 (02:58→20:33)
[2017-04-15 05:11] LABS: BASOPHILS # (AUTO) 0.12 x10^3/uL (0-0.1); BASOPHILS % (AUTO) 1 % (0-1); EOSINOPHILS # (AUTO) 1.07 x10^3/uL (0-0.4); EOSINOPHILS % (AUTO) 9 % (1-7); LYMPHOCYTES # (AUTO) 2.64 x10^3/uL (1-3.4); LYMPHOCYTES % (AUTO) 21 % (22-44); MD NO; MEAN CORPUSCULAR HEMOGLOBIN 29.4 pg (27.5-34.5); MEAN CORPUSCULAR HGB CONC 31.2 g/dL (33.2-36.2); MEAN CORPUSCULAR VOLUME 94.1 fL (81-97); MEAN PLATELET VOLUME 6.9 fL (7.4-10.4); MONOCYTES # (AUTO) 0.92 x10^3/uL (0.2-0.8); MONOCYTES % (AUTO) 7 % (2-9); NEUTROPHILS # (AUTO) 7.58 x10^3/uL (1.8-6.8); NEUTROPHILS % (AUTO) 62 % (42-75); PLATELET COUNT 425 x10^3/uL (130-400); RED BLOOD COUNT 3.56 x10^6/uL (4.38-5.82); RED CELL DISTRIBUTION WIDTH 17.4 % (9.4-14.8)
[2017-04-15 05:26] LABS: CALCIUM 8.9 mg/dL (8.5-10.1); CHLORIDE 98 mmol/L (98-107)
[2017-04-15 05:31] LABS: ALANINE AMINOTRANSFERASE 58 U/L (12-78); ALKALINE PHOSPHATASE 190 U/L (45-117); ANION GAP 4 mmol/L (5-15); BILIRUBIN,TOTAL 0.3 mg/dL (0.2-1.0); TOTAL PROTEIN 7.1 g/dL (6.4-8.2)
[2017-04-15 06:35] VITALS: BP 127/74
[2017-04-15] MEDS: FLUCONAZOLE 200 MG TABLET PO SCH (08:38)
[2017-04-15] MEDS: FLUOXETINE 10 MG CAP PO SCH (08:38)
[2017-04-15] MEDS: TAMSULOSIN 0.4 MG CAP.ER.24H PO SCH (08:38)
[2017-04-15] MEDS: POTASSIUM CHLORIDE 20 MEQ TAB.ER.PRT PO SCH (08:38)
[2017-04-15] MEDS: ENOXAPARIN 30 MG/0.3 ML SQ SCH ×2 (08:39→20:34)
[2017-04-15] MEDS: ARTIFICIAL TEARS 15 DROP/ML BOTTLE EACHEYE SCH (08:39)
[2017-04-15] MEDS: SODIUM CHLORIDE FLUSH 10ML SYR IVF SCH ×2 (11:34→20:34)
[2017-04-15 14:17] VITALS: BP 129/78
[2017-04-15 18:54] VITALS: BP 113/67
[2017-04-15] MEDS: SIMVASTATIN 40 MG TABLET PO SCH (20:34)
[2017-04-16 01:19] VITALS: BP 122/69
[2017-04-16] MEDS: AMPICILLIN/SULBACTAM 3 GM in SODIUM CHLORIDE 0.9% 100 ML IV SCH ×4 (03:20→20:34)
[2017-04-16 04:59] LABS: ANION GAP 3 mmol/L (5-15); CALCIUM 8.7 mg/dL (8.5-10.1); CHLORIDE 97 mmol/L (98-107); CREATININE 0.67 mg/dL (0.7-1.3)
[2017-04-16 05:12] LABS: BASOPHILS # (AUTO) 0.06 x10^3/uL (0-0.1); BASOPHILS % (AUTO) 1 % (0-1); EOSINOPHILS # (AUTO) 1.03 x10^3/uL (0-0.4); EOSINOPHILS % (AUTO) 8 % (1-7); LYMPHOCYTES # (AUTO) 2.59 x10^3/uL (1-3.4); LYMPHOCYTES % (AUTO) 20 % (22-44); MD NO; MEAN CORPUSCULAR HEMOGLOBIN 29.5 pg (27.5-34.5); MEAN CORPUSCULAR HGB CONC 31.6 g/dL (33.2-36.2); MEAN CORPUSCULAR VOLUME 93.4 fL (81-97); MEAN PLATELET VOLUME 7.1 fL (7.4-10.4); MONOCYTES # (AUTO) 1.03 x10^3/uL (0.2-0.8); MONOCYTES % (AUTO) 8 % (2-9); NEUTROPHILS % (AUTO) 63 % (42-75); PLATELET COUNT 397 x10^3/uL (130-400); RED BLOOD COUNT 3.52 x10^6/uL (4.38-5.82); RED CELL DISTRIBUTION WIDTH 16.5 % (9.4-14.8)
[2017-04-16 07:43] VITALS: BP 128/73
[2017-04-16] MEDS: FLUCONAZOLE 200 MG TABLET PO SCH (08:56)
[2017-04-16] MEDS: POTASSIUM CHLORIDE 20 MEQ TAB.ER.PRT PO SCH (08:57)
[2017-04-16] MEDS: ENOXAPARIN 30 MG/0.3 ML SQ SCH ×2 (08:57→20:34)
[2017-04-16] MEDS: ARTIFICIAL TEARS 15 DROP/ML BOTTLE EACHEYE SCH (08:57)
[2017-04-16] MEDS: FLUOXETINE 10 MG CAP PO SCH (08:57)
[2017-04-16] MEDS: TAMSULOSIN 0.4 MG CAP.ER.24H PO SCH (08:57)
[2017-04-16] MEDS: SODIUM CHLORIDE FLUSH 10ML SYR IVF SCH ×2 (08:57→20:35)
[2017-04-16 14:15] VITALS: BP 104/68
[2017-04-16 19:40] VITALS: BP 118/64
[2017-04-16] MEDS: SIMVASTATIN 40 MG TABLET PO SCH (20:34)
[2017-04-16] MEDS: HYDROcodone/APAP 5/325 TABLET PO PRN (20:35)
[2017-04-17 00:28] VITALS: BP 113/68
[2017-04-17] MEDS: HYDROcodone/APAP 5/325 TABLET PO PRN ×4 (00:38→16:55)
[2017-04-17] MEDS: AMPICILLIN/SULBACTAM 3 GM in SODIUM CHLORIDE 0.9% 100 ML IV SCH ×4 (03:07→22:03)
[2017-04-17 07:06] VITALS: BP 117/82
[2017-04-17] MEDS: TAMSULOSIN 0.4 MG CAP.ER.24H PO SCH (10:14)
[2017-04-17] MEDS: FLUCONAZOLE 200 MG TABLET PO SCH (10:14)
[2017-04-17] MEDS: POTASSIUM CHLORIDE 20 MEQ TAB.ER.PRT PO SCH (10:14)
[2017-04-17] MEDS: SODIUM CHLORIDE FLUSH 10ML SYR IVF SCH ×2 (10:14→22:00)
[2017-04-17] MEDS: FLUOXETINE 10 MG CAP PO SCH (10:14)
[2017-04-17] MEDS: ENOXAPARIN 30 MG/0.3 ML SQ SCH ×2 (10:15→22:00)
[2017-04-17] MEDS: ARTIFICIAL TEARS 15 DROP/ML BOTTLE EACHEYE SCH (10:19)
[2017-04-17 12:21] VITALS: BP 114/72
[2017-04-17 19:24] VITALS: BP 113/69
[2017-04-17] MEDS: SIMVASTATIN 40 MG TABLET PO SCH (22:00)
[2017-04-18 02:15] VITALS: BP 105/63
[2017-04-18] MEDS: HYDROcodone/APAP 5/325 TABLET PO PRN ×2 (03:58→20:10)
[2017-04-18] MEDS: AMPICILLIN/SULBACTAM 3 GM in SODIUM CHLORIDE 0.9% 100 ML IV SCH ×3 (03:58→15:46)
[2017-04-18 05:52] LABS: CHLORIDE 99 mmol/L (98-107)
[2017-04-18 05:55] LABS: BASOPHILS # (AUTO) 0.07 x10^3/uL (0-0.1); BASOPHILS % (AUTO) 1 % (0-1); EOSINOPHILS # (AUTO) 0.93 x10^3/uL (0-0.4); EOSINOPHILS % (AUTO) 8 % (1-7); LYMPHOCYTES # (AUTO) 2.61 x10^3/uL (1-3.4); LYMPHOCYTES % (AUTO) 24 % (22-44); MD NO; MEAN CORPUSCULAR HEMOGLOBIN 29.6 pg (27.5-34.5); MEAN CORPUSCULAR HGB CONC 31.5 g/dL (33.2-36.2); MEAN PLATELET VOLUME 7.2 fL (7.4-10.4); MONOCYTES % (AUTO) 8 % (2-9); NEUTROPHILS # (AUTO) 6.56 x10^3/uL (1.8-6.8); NEUTROPHILS % (AUTO) 59 % (42-75); PLATELET COUNT 345 x10^3/uL (130-400); RED BLOOD COUNT 3.48 x10^6/uL (4.38-5.82)
[2017-04-18 06:08] LABS: ALANINE AMINOTRANSFERASE 74 U/L (12-78); ALBUMIN 1.9 g/dL (3.4-5.0); ALKALINE PHOSPHATASE 176 U/L (45-117); ANION GAP 4 mmol/L (5-15); BILIRUBIN,TOTAL 0.2 mg/dL (0.2-1.0); CALCIUM 8.7 mg/dL (8.5-10.1); CREATININE 0.64 mg/dL (0.7-1.3); TOTAL PROTEIN 6.9 g/dL (6.4-8.2)
[2017-04-18 06:33] LABS: HCT (SEDRATE) 32.9 % (39.2-51.8)
[2017-04-18 06:38] VITALS: BP 115/71
[2017-04-18] MEDS: POTASSIUM CHLORIDE 20 MEQ TAB.ER.PRT PO SCH (10:03)
[2017-04-18] MEDS: FLUOXETINE 10 MG CAP PO SCH (10:03)
[2017-04-18] MEDS: TAMSULOSIN 0.4 MG CAP.ER.24H PO SCH (10:03)
[2017-04-18] MEDS: FLUCONAZOLE 200 MG TABLET PO SCH (10:04)
[2017-04-18] MEDS: ENOXAPARIN 30 MG/0.3 ML SQ SCH ×2 (10:04→20:10)
[2017-04-18] MEDS: SODIUM CHLORIDE FLUSH 10ML SYR IVF SCH ×2 (10:04→20:10)
[2017-04-18 12:04] VITALS: BP 118/74
[2017-04-18 19:10] VITALS: BP 107/66
[2017-04-18] MEDS: ARTIFICIAL TEARS 15 DROP/ML BOTTLE EACHEYE SCH (20:10)
[2017-04-18] MEDS: SIMVASTATIN 40 MG TABLET PO SCH (20:10)
[2017-04-19] MEDS: AMPICILLIN/SULBACTAM 3 GM in SODIUM CHLORIDE 0.9% 100 ML IV SCH ×4 (01:02→22:54)
[2017-04-19 01:47] VITALS: BP 111/68
[2017-04-19 06:41] VITALS: BP 130/75
[2017-04-19] MEDS: POTASSIUM CHLORIDE 20 MEQ TAB.ER.PRT PO SCH (08:55)
[2017-04-19] MEDS: SODIUM CHLORIDE FLUSH 10ML SYR IVF SCH ×2 (08:56→20:10)
[2017-04-19] MEDS: TAMSULOSIN 0.4 MG CAP.ER.24H PO SCH (08:57)
[2017-04-19] MEDS: FLUCONAZOLE 200 MG TABLET PO SCH (08:57)
[2017-04-19] MEDS: FLUOXETINE 10 MG CAP PO SCH (08:58)
[2017-04-19] MEDS: ENOXAPARIN 30 MG/0.3 ML SQ SCH ×2 (08:59→20:10)
[2017-04-19] MEDS: ARTIFICIAL TEARS 15 DROP/ML BOTTLE EACHEYE SCH ×2 (09:01→20:11)
[2017-04-19 12:18] VITALS: BP 121/73
[2017-04-19] MEDS: ACETAMINOPHEN 325 MG TABLET PO PRN (13:52)
[2017-04-19] MEDS: SIMVASTATIN 40 MG TABLET PO SCH (20:11)
[2017-04-19 20:32] VITALS: BP 128/78
[2017-04-20 01:32] VITALS: BP 143/80
[2017-04-20] MEDS: AMPICILLIN/SULBACTAM 3 GM in SODIUM CHLORIDE 0.9% 100 ML IV SCH ×4 (05:02→23:06)
[2017-04-20 06:29] VITALS: BP 115/73
[2017-04-20] MEDS: FLUOXETINE 10 MG CAP PO SCH (08:53)
[2017-04-20] MEDS: POTASSIUM CHLORIDE 20 MEQ TAB.ER.PRT PO SCH (08:54)
[2017-04-20] MEDS: TAMSULOSIN 0.4 MG CAP.ER.24H PO SCH (08:54)
[2017-04-20] MEDS: FLUCONAZOLE 200 MG TABLET PO SCH (08:54)
[2017-04-20] MEDS: ENOXAPARIN 30 MG/0.3 ML SQ SCH ×2 (08:54→20:14)
[2017-04-20] MEDS: SODIUM CHLORIDE FLUSH 10ML SYR IVF SCH ×2 (08:54→20:15)
[2017-04-20 12:04] VITALS: BP 123/75
[2017-04-20 19:06] VITALS: BP 131/77
[2017-04-20] MEDS: SIMVASTATIN 40 MG TABLET PO SCH (20:15)
[2017-04-20] MEDS: ARTIFICIAL TEARS 15 DROP/ML BOTTLE EACHEYE SCH (20:15)
[2017-04-21 01:04] VITALS: BP_SYST 105; BP_SYST 129; BP_DIAS 57; BP_DIAS 77
[2017-04-21] MEDS: AMPICILLIN/SULBACTAM 3 GM in SODIUM CHLORIDE 0.9% 100 ML IV SCH ×4 (05:03→23:01)
[2017-04-21 05:20] LABS: BASOPHILS % (AUTO) 1 % (0-1); EOSINOPHILS # (AUTO) 0.79 x10^3/uL (0-0.4); EOSINOPHILS % (AUTO) 7 % (1-7); LYMPHOCYTES % (AUTO) 22 % (22-44); MD NO; MEAN CORPUSCULAR HEMOGLOBIN 29.3 pg (27.5-34.5); MEAN CORPUSCULAR HGB CONC 31.6 g/dL (33.2-36.2); MEAN CORPUSCULAR VOLUME 92.6 fL (81-97); MEAN PLATELET VOLUME 7.4 fL (7.4-10.4); MONOCYTES # (AUTO) 0.93 x10^3/uL (0.2-0.8); MONOCYTES % (AUTO) 8 % (2-9); NEUTROPHILS # (AUTO) 7.67 x10^3/uL (1.8-6.8); NEUTROPHILS % (AUTO) 64 % (42-75); PLATELET COUNT 329 x10^3/uL (130-400); RED BLOOD COUNT 3.63 x10^6/uL (4.38-5.82)
[2017-04-21 05:30] LABS: ALBUMIN 2.1 g/dL (3.4-5.0); ANION GAP 7 mmol/L (5-15); CALCIUM 9.4 mg/dL (8.5-10.1); CHLORIDE 99 mmol/L (98-107)
[2017-04-21 05:33] LABS: ALANINE AMINOTRANSFERASE 65 U/L (12-78); ALKALINE PHOSPHATASE 176 U/L (45-117); BILIRUBIN,TOTAL 0.5 mg/dL (0.2-1.0); CREATININE 0.79 mg/dL (0.7-1.3); TOTAL PROTEIN 7.1 g/dL (6.4-8.2)
[2017-04-21 06:57] VITALS: BP 125/71
[2017-04-21] MEDS: ENOXAPARIN 30 MG/0.3 ML SQ SCH ×2 (08:48→20:22)
[2017-04-21] MEDS: FLUCONAZOLE 200 MG TABLET PO SCH (08:48)
[2017-04-21] MEDS: FLUOXETINE 10 MG CAP PO SCH (08:49)
[2017-04-21] MEDS: POTASSIUM CHLORIDE 20 MEQ TAB.ER.PRT PO SCH (08:49)
[2017-04-21] MEDS: ARTIFICIAL TEARS 15 DROP/ML BOTTLE EACHEYE SCH ×2 (08:49→19:25)
[2017-04-21] MEDS: TAMSULOSIN 0.4 MG CAP.ER.24H PO SCH (08:49)
[2017-04-21] MEDS: SODIUM CHLORIDE FLUSH 10ML SYR IVF SCH ×2 (08:53→20:22)
[2017-04-21 13:53] VITALS: BP 135/72
[2017-04-21 19:58] VITALS: BP 122/74
[2017-04-21] MEDS: SIMVASTATIN 40 MG TABLET PO SCH (20:22)
[2017-04-22 01:15] VITALS: BP 131/73
[2017-04-22] MEDS: AMPICILLIN/SULBACTAM 3 GM in SODIUM CHLORIDE 0.9% 100 ML IV SCH ×3 (04:55→17:34)
[2017-04-22 07:24] VITALS: BP 117/69
[2017-04-22] MEDS: ENOXAPARIN 30 MG/0.3 ML SQ SCH ×2 (07:35→20:16)
[2017-04-22] MEDS: POTASSIUM CHLORIDE 20 MEQ TAB.ER.PRT PO SCH (07:35)
[2017-04-22] MEDS: FLUOXETINE 10 MG CAP PO SCH (07:35)
[2017-04-22] MEDS: SODIUM CHLORIDE FLUSH 10ML SYR IVF SCH ×2 (07:36→20:16)
[2017-04-22] MEDS: FLUCONAZOLE 200 MG TABLET PO SCH (07:36)
[2017-04-22] MEDS: TAMSULOSIN 0.4 MG CAP.ER.24H PO SCH (07:36)
[2017-04-22] MEDS: ARTIFICIAL TEARS 15 DROP/ML BOTTLE EACHEYE SCH (07:41)
[2017-04-22 16:37] VITALS: BP 132/73
[2017-04-22 18:25] VITALS: BP 129/70
[2017-04-22] MEDS: SIMVASTATIN 40 MG TABLET PO SCH (20:16)
[2017-04-23] MEDS: AMPICILLIN/SULBACTAM 3 GM in SODIUM CHLORIDE 0.9% 100 ML IV SCH ×4 (00:30→18:03)
[2017-04-23 01:53] VITALS: BP 117/68
[2017-04-23 07:01] VITALS: BP 120/73
[2017-04-23] MEDS: FLUOXETINE 10 MG CAP PO SCH (09:11)
[2017-04-23] MEDS: POTASSIUM CHLORIDE 20 MEQ TAB.ER.PRT PO SCH (09:12)
[2017-04-23] MEDS: FLUCONAZOLE 200 MG TABLET PO SCH (09:12)
[2017-04-23] MEDS: SODIUM CHLORIDE FLUSH 10ML SYR IVF SCH ×2 (09:12→20:40)
[2017-04-23] MEDS: TAMSULOSIN 0.4 MG CAP.ER.24H PO SCH (09:12)
[2017-04-23] MEDS: ENOXAPARIN 30 MG/0.3 ML SQ SCH ×2 (09:12→20:40)
[2017-04-23 10:21] LABS: BASOPHILS # (AUTO) 0.07 x10^3/uL (0-0.1); BASOPHILS % (AUTO) 1 % (0-1); EOSINOPHILS # (AUTO) 0.93 x10^3/uL (0-0.4); EOSINOPHILS % (AUTO) 8 % (1-7); LYMPHOCYTES # (AUTO) 2.31 x10^3/uL (1-3.4); LYMPHOCYTES % (AUTO) 19 % (22-44); MD NO; MEAN CORPUSCULAR HEMOGLOBIN 29.3 pg (27.5-34.5); MEAN CORPUSCULAR HGB CONC 31.7 g/dL (33.2-36.2); MEAN CORPUSCULAR VOLUME 92.6 fL (81-97); MEAN PLATELET VOLUME 6.9 fL (7.4-10.4); MONOCYTES # (AUTO) 0.91 x10^3/uL (0.2-0.8); MONOCYTES % (AUTO) 8 % (2-9); NEUTROPHILS # (AUTO) 7.85 x10^3/uL (1.8-6.8); NEUTROPHILS % (AUTO) 65 % (42-75); PLATELET COUNT 322 x10^3/uL (130-400); RED BLOOD COUNT 3.56 x10^6/uL (4.38-5.82); RED CELL DISTRIBUTION WIDTH 16.6 % (9.4-14.8)
[2017-04-23 10:31] LABS: ALANINE AMINOTRANSFERASE 110 U/L (12-78); ALBUMIN 2.1 g/dL (3.4-5.0); ANION GAP 4 mmol/L (5-15); CALCIUM 8.9 mg/dL (8.5-10.1); CHLORIDE 100 mmol/L (98-107); CREATININE 0.84 mg/dL (0.7-1.3)
[2017-04-23 10:34] LABS: ALKALINE PHOSPHATASE 170 U/L (45-117); BILIRUBIN,TOTAL 0.4 mg/dL (0.2-1.0); TOTAL PROTEIN 6.8 g/dL (6.4-8.2)
[2017-04-23 10:35] LABS: INTERNATIONAL NORMALIZED RATIO 1.08 (0.93-1.1); PROTHROMBIN TIME 11.2 Seconds (9.6-11.5)
[2017-04-23 13:06] VITALS: BP 108/69
[2017-04-23 18:36] VITALS: BP 116/70
[2017-04-23] MEDS: SIMVASTATIN 40 MG TABLET PO SCH (20:40)
[2017-04-24 00:12] VITALS: BP 126/73
[2017-04-24] MEDS: AMPICILLIN/SULBACTAM 3 GM in SODIUM CHLORIDE 0.9% 100 ML IV SCH ×4 (00:56→23:08)
[2017-04-24 05:41] LABS: BASOPHILS # (AUTO) 0.07 x10^3/uL (0-0.1); BASOPHILS % (AUTO) 1 % (0-1); EOSINOPHILS # (AUTO) 1.32 x10^3/uL (0-0.4); EOSINOPHILS % (AUTO) 10 % (1-7); LYMPHOCYTES # (AUTO) 2.92 x10^3/uL (1-3.4); LYMPHOCYTES % (AUTO) 22 % (22-44); MD NO; MEAN CORPUSCULAR HEMOGLOBIN 29.4 pg (27.5-34.5); MEAN CORPUSCULAR HGB CONC 31.8 g/dL (33.2-36.2); MEAN CORPUSCULAR VOLUME 92.6 fL (81-97); MEAN PLATELET VOLUME 7.6 fL (7.4-10.4); MONOCYTES # (AUTO) 0.76 x10^3/uL (0.2-0.8); MONOCYTES % (AUTO) 6 % (2-9); NEUTROPHILS # (AUTO) 7.94 x10^3/uL (1.8-6.8); NEUTROPHILS % (AUTO) 61 % (42-75); PLATELET COUNT 326 x10^3/uL (130-400); RED BLOOD COUNT 3.66 x10^6/uL (4.38-5.82)
[2017-04-24 05:46] LABS: ALBUMIN 2.1 g/dL (3.4-5.0); ANION GAP 7 mmol/L (5-15); CALCIUM 9.3 mg/dL (8.5-10.1); CHLORIDE 101 mmol/L (98-107)
[2017-04-24 05:51] LABS: ALANINE AMINOTRANSFERASE 136 U/L (12-78); ALKALINE PHOSPHATASE 177 U/L (45-117); BILIRUBIN,TOTAL 0.5 mg/dL (0.2-1.0); CREATININE 0.71 mg/dL (0.7-1.3); TOTAL PROTEIN 6.8 g/dL (6.4-8.2)
[2017-04-24 06:57] VITALS: BP 113/73
[2017-04-24 07:19] VITALS: BP 127/73
[2017-04-24] MEDS: ARTIFICIAL TEARS 15 DROP/ML BOTTLE EACHEYE SCH ×2 (09:08→23:10)
[2017-04-24] MEDS: SODIUM CHLORIDE FLUSH 10ML SYR IVF SCH ×2 (09:13→20:26)
[2017-04-24] MEDS: FLUCONAZOLE 200 MG TABLET PO SCH (09:13)
[2017-04-24] MEDS: FLUOXETINE 10 MG CAP PO SCH (09:14)
[2017-04-24] MEDS: TAMSULOSIN 0.4 MG CAP.ER.24H PO SCH (09:14)
[2017-04-24] MEDS: ENOXAPARIN 30 MG/0.3 ML SQ SCH ×2 (09:15→20:25)
[2017-04-24] MEDS: POTASSIUM CHLORIDE 20 MEQ TAB.ER.PRT PO SCH (11:50)
[2017-04-24 13:20] VITALS: BP 120/68
[2017-04-24 18:50] VITALS: BP 111/63
[2017-04-24] MEDS: SIMVASTATIN 40 MG TABLET PO SCH (20:26)
[2017-04-25 01:18] VITALS: BP 104/63
[2017-04-25] MEDS: AMPICILLIN/SULBACTAM 3 GM in SODIUM CHLORIDE 0.9% 100 ML IV SCH (05:34)
[2017-04-25 05:35] LABS: ALBUMIN 2.2 g/dL (3.4-5.0); ANION GAP 7 mmol/L (5-15); BASOPHILS # (AUTO) 0.07 x10^3/uL (0-0.1); BASOPHILS % (AUTO) 1 % (0-1); CHLORIDE 101 mmol/L (98-107); EOSINOPHILS # (AUTO) 1.64 x10^3/uL (0-0.4); EOSINOPHILS % (AUTO) 11 % (1-7); HCT (SEDRATE) 34.8 % (39.2-51.8); LYMPHOCYTES % (AUTO) 21 % (22-44); MD NO; MEAN CORPUSCULAR HEMOGLOBIN 29.5 pg (27.5-34.5); MEAN CORPUSCULAR VOLUME 92.4 fL (81-97); MEAN PLATELET VOLUME 7.6 fL (7.4-10.4); MONOCYTES # (AUTO) 1.04 x10^3/uL (0.2-0.8); MONOCYTES % (AUTO) 7 % (2-9); NEUTROPHILS # (AUTO) 8.64 x10^3/uL (1.8-6.8); NEUTROPHILS % (AUTO) 60 % (42-75); PLATELET COUNT 327 x10^3/uL (130-400); RED BLOOD COUNT 3.77 x10^6/uL (4.38-5.82); RED CELL DISTRIBUTION WIDTH 17.3 % (9.4-14.8)
[2017-04-25 05:46] LABS: ALANINE AMINOTRANSFERASE 126 U/L (12-78); ALKALINE PHOSPHATASE 186 U/L (45-117); BILIRUBIN,TOTAL 0.4 mg/dL (0.2-1.0); CREATININE 0.73 mg/dL (0.7-1.3)
[2017-04-25 06:34] LABS: SEDIMENTATION RATE 92 mm/hr (0-10)
[2017-04-25 06:44] VITALS: BP 113/68
[2017-04-25] MEDS: TAMSULOSIN 0.4 MG CAP.ER.24H PO SCH (08:42)
[2017-04-25] MEDS: ENOXAPARIN 30 MG/0.3 ML SQ SCH ×2 (08:42→20:23)
[2017-04-25] MEDS: SODIUM CHLORIDE FLUSH 10ML SYR IVF SCH ×2 (08:42→20:23)
[2017-04-25] MEDS: FLUOXETINE 10 MG CAP PO SCH (08:42)
[2017-04-25] MEDS: POTASSIUM CHLORIDE 20 MEQ TAB.ER.PRT PO SCH (08:42)
[2017-04-25] MEDS: ARTIFICIAL TEARS 15 DROP/ML BOTTLE EACHEYE SCH ×2 (08:48→20:22)
[2017-04-25 13:50] VITALS: BP 134/68
[2017-04-25 19:36] VITALS: BP 110/66
[2017-04-25] MEDS: SIMVASTATIN 40 MG TABLET PO SCH (20:23)
[2017-04-26 02:56] VITALS: BP 109/65
[2017-04-26 05:20] LABS: BASOPHILS # (AUTO) 0.07 x10^3/uL (0-0.1); BASOPHILS % (AUTO) 1 % (0-1); EOSINOPHILS # (AUTO) 1.62 x10^3/uL (0-0.4); EOSINOPHILS % (AUTO) 12 % (1-7); LYMPHOCYTES # (AUTO) 2.77 x10^3/uL (1-3.4); LYMPHOCYTES % (AUTO) 20 % (22-44); MD NO; MEAN CORPUSCULAR HEMOGLOBIN 29.2 pg (27.5-34.5); MEAN CORPUSCULAR HGB CONC 31.9 g/dL (33.2-36.2); MEAN CORPUSCULAR VOLUME 91.6 fL (81-97); MEAN PLATELET VOLUME 7.4 fL (7.4-10.4); MONOCYTES # (AUTO) 0.94 x10^3/uL (0.2-0.8); MONOCYTES % (AUTO) 7 % (2-9); NEUTROPHILS # (AUTO) 8.29 x10^3/uL (1.8-6.8); NEUTROPHILS % (AUTO) 61 % (42-75); PLATELET COUNT 319 x10^3/uL (130-400); RED BLOOD COUNT 3.66 x10^6/uL (4.38-5.82); RED CELL DISTRIBUTION WIDTH 17.1 % (9.4-14.8)
[2017-04-26 07:36] VITALS: BP 125/74
[2017-04-26] MEDS: POTASSIUM CHLORIDE 20 MEQ TAB.ER.PRT PO SCH ×3 (08:52→14:14)
[2017-04-26] MEDS: TAMSULOSIN 0.4 MG CAP.ER.24H PO SCH (08:52)
[2017-04-26] MEDS: FLUOXETINE 10 MG CAP PO SCH (08:52)
[2017-04-26] MEDS: SODIUM CHLORIDE FLUSH 10ML SYR IVF SCH ×2 (08:52→20:43)
[2017-04-26] MEDS: ENOXAPARIN 30 MG/0.3 ML SQ SCH ×2 (08:52→20:43)
[2017-04-26] MEDS: ARTIFICIAL TEARS 15 DROP/ML BOTTLE EACHEYE SCH (09:01)
[2017-04-26 12:56] VITALS: BP 128/71
[2017-04-26 19:39] VITALS: BP 119/73
[2017-04-26] MEDS: SIMVASTATIN 40 MG TABLET PO SCH (20:43)
[2017-04-27 01:06] VITALS: BP 96/58
[2017-04-27 05:25] LABS: MEAN CORPUSCULAR HEMOGLOBIN 29.3 pg (27.5-34.5); MEAN CORPUSCULAR HGB CONC 31.7 g/dL (33.2-36.2); MEAN CORPUSCULAR VOLUME 92.4 fL (81-97); MEAN PLATELET VOLUME 7.8 fL (7.4-10.4); PLATELET COUNT 319 x10^3/uL (130-400); RED BLOOD COUNT 3.74 x10^6/uL (4.38-5.82)
[2017-04-27 05:38] LABS: ALBUMIN 2.3 g/dL (3.4-5.0); ANION GAP 3 mmol/L (5-15); CALCIUM 9.2 mg/dL (8.5-10.1); CHLORIDE 102 mmol/L (98-107)
[2017-04-27 05:42] LABS: ALANINE AMINOTRANSFERASE 156 U/L (12-78); ALKALINE PHOSPHATASE 239 U/L (45-117); BILIRUBIN,TOTAL 0.2 mg/dL (0.2-1.0); CREATININE 0.71 mg/dL (0.7-1.3); TOTAL PROTEIN 7.1 g/dL (6.4-8.2)
[2017-04-27 06:04] LABS: BASOPHILS # (AUTO) 0.06 x10^3/uL (0-0.1); BASOPHILS % (AUTO) 1 % (0-1); EOSINOPHILS # (AUTO) 1.86 x10^3/uL (0-0.4); EOSINOPHILS % (AUTO) 14 % (1-7); LYMPHOCYTES # (AUTO) 2.99 x10^3/uL (1-3.4); LYMPHOCYTES % (AUTO) 22 % (22-44); MD SCAN; MONOCYTES # (AUTO) 0.99 x10^3/uL (0.2-0.8); MONOCYTES % (AUTO) 7 % (2-9); NEUTROPHILS % (AUTO) 57 % (42-75)
[2017-04-27 06:53] VITALS: BP 119/71
[2017-04-27] MEDS: SODIUM CHLORIDE FLUSH 10ML SYR IVF SCH ×2 (09:00→21:03)
[2017-04-27] MEDS: FLUOXETINE 10 MG CAP PO SCH (09:26)
[2017-04-27] MEDS: ARTIFICIAL TEARS 15 DROP/ML BOTTLE EACHEYE SCH ×2 (09:26→21:22)
[2017-04-27] MEDS: TAMSULOSIN 0.4 MG CAP.ER.24H PO SCH (09:26)
[2017-04-27] MEDS: ENOXAPARIN 30 MG/0.3 ML SQ SCH ×2 (09:26→21:03)
[2017-04-27 13:09] VITALS: BP 98/64
[2017-04-27 19:36] VITALS: BP 108/67
[2017-04-27] MEDS: SIMVASTATIN 40 MG TABLET PO SCH (21:03)
[2017-04-28 02:05] VITALS: BP 111/72
[2017-04-28 06:16] LABS: MEAN CORPUSCULAR HEMOGLOBIN 29.7 pg (27.5-34.5); MEAN CORPUSCULAR HGB CONC 31.8 g/dL (33.2-36.2); MEAN CORPUSCULAR VOLUME 93.5 fL (81-97); MEAN PLATELET VOLUME 7.9 fL (7.4-10.4); PLATELET COUNT 307 x10^3/uL (130-400); RED BLOOD COUNT 3.71 x10^6/uL (4.38-5.82); RED CELL DISTRIBUTION WIDTH 17.2 % (9.4-14.8)
[2017-04-28 06:31] LABS: ALANINE AMINOTRANSFERASE 120 U/L (12-78); ALBUMIN 2.2 g/dL (3.4-5.0); ANION GAP 5 mmol/L (5-15); CALCIUM 9.3 mg/dL (8.5-10.1); CHLORIDE 101 mmol/L (98-107); CREATININE 0.66 mg/dL (0.7-1.3)
[2017-04-28 06:33] LABS: ALKALINE PHOSPHATASE 224 U/L (45-117); BILIRUBIN,TOTAL 0.2 mg/dL (0.2-1.0); TOTAL PROTEIN 6.8 g/dL (6.4-8.2)
[2017-04-28 06:50] VITALS: BP 114/74
[2017-04-28 07:04] LABS: MD SCAN
[2017-04-28 07:07] LABS: BASOPHILS # (AUTO) 0.06 x10^3/uL (0-0.1); BASOPHILS % (AUTO) 0 % (0-1); EOSINOPHILS # (AUTO) 1.91 x10^3/uL (0-0.4); EOSINOPHILS % (AUTO) 15 % (1-7); LYMPHOCYTES # (AUTO) 2.79 x10^3/uL (1-3.4); LYMPHOCYTES % (AUTO) 21 % (22-44); MONOCYTES # (AUTO) 1.03 x10^3/uL (0.2-0.8); MONOCYTES % (AUTO) 8 % (2-9); NEUTROPHILS # (AUTO) 7.31 x10^3/uL (1.8-6.8); NEUTROPHILS % (AUTO) 56 % (42-75)
[2017-04-28 07:19] VITALS: BP 102/63
[2017-04-28] MEDS: ENOXAPARIN 30 MG/0.3 ML SQ SCH (08:12)
[2017-04-28] MEDS: SODIUM CHLORIDE FLUSH 10ML SYR IVF SCH ×2 (08:12→23:18)
[2017-04-28] MEDS: SIMVASTATIN 40 MG TABLET PO SCH (08:13)
[2017-04-28] MEDS: TAMSULOSIN 0.4 MG CAP.ER.24H PO SCH (08:13)
[2017-04-28] MEDS: FLUOXETINE 10 MG CAP PO SCH (08:13)
[2017-04-28] MEDS ORDERED: EPINEPHRINE 1 MG/ML, 1ML ONE (09:27)
[2017-04-28] MEDS ORDERED: BUPIVACAINE/PF 0.5% ONE (09:27)
[2017-04-28] MEDS ORDERED: FENTANYL PF 250 MCG/5ML ONE (11:50)
[2017-04-28] MEDS ORDERED: MIDAZOLAM 1 MG/ML, 2ML ONE (11:50)
[2017-04-28] MEDS ORDERED: PROPOFOL 10 MG/ML, 20ML ONE (11:53)
[2017-04-28] MEDS ORDERED: NEOSTIGMINE 1 MG/ML, 10ML ONE (11:55)
[2017-04-28] MEDS ORDERED: GLYCOPYRROLATE 0.4 MG/2 ML, 2ML ONE (11:55)
[2017-04-28] MEDS ORDERED: ROCURONIUM 10 MG/ML,10ML ONE (11:56)
[2017-04-28] MEDS ORDERED: HYDROmorphone 1 MG/ML, 1ML IV PRN (13:30)
[2017-04-28] MEDS ORDERED: OXYcodone 5 MG/5 ML ORAL.SOL UDC PO PRN (13:30)
[2017-04-28] MEDS ORDERED: ACETAMINOPHEN 325 MG TABLET PO PRN (13:30)
[2017-04-28] MEDS ORDERED: MEPERIDINE/PF 25MG/0.5ML IVPush PRN (13:30)
[2017-04-28] MEDS ORDERED: ONDANSETRON 2MG/ML, 2ML IVPush PRN (13:30)
[2017-04-28] MEDS ORDERED: PROMETHAZINE 25 MG/ML, 1ML IV PRN (13:30)
[2017-04-28] MEDS ORDERED: hydrALAzine 20 MG/ML, 1ML IV PRN (13:30)
[2017-04-28] MEDS ORDERED: morphine SULFATE 10 MG/ML, 1ML IV PRN (13:30)
[2017-04-28] MEDS ORDERED: LABETALOL 5MG/ML, 20ML IV PRN (13:30)
[2017-04-28] MEDS ORDERED: FENTANYL PF 100 MCG/2ML IV PRN (13:30)
[2017-04-28] MEDS ORDERED: PROMETHAZINE 12.5 MG SUPP PR PRN (13:30)
[2017-04-28] MEDS ORDERED: CEFOTETAN PMX 2GM/50ML 50 ML ONE (13:31)
[2017-04-28] MEDS ORDERED: PHENYLEPHRINE 10 MG/ML ONE (13:43)
[2017-04-28] MEDS ORDERED: OXYcodone 5 MG/5 ML ORAL.SOL UDC ONE (15:45)
[2017-04-28] MEDS: HYDROcodone/APAP 5/325 TABLET PO PRN ×2 (18:20→23:19)
[2017-04-28 18:46] VITALS: BP 115/71
[2017-04-29 01:40] VITALS: BP 108/64
[2017-04-29] MEDS: HYDROcodone/APAP 5/325 TABLET PO PRN ×2 (05:02→19:26)
[2017-04-29 05:51] LABS: BASOPHILS # (AUTO) 0.03 x10^3/uL (0-0.1); BASOPHILS % (AUTO) 0 % (0-1); CHLORIDE 100 mmol/L (98-107); EOSINOPHILS # (AUTO) 0.21 x10^3/uL (0-0.4); EOSINOPHILS % (AUTO) 1 % (1-7); LYMPHOCYTES # (AUTO) 1.81 x10^3/uL (1-3.4); LYMPHOCYTES % (AUTO) 10 % (22-44); MD NO; MEAN CORPUSCULAR HEMOGLOBIN 29.8 pg (27.5-34.5); MEAN CORPUSCULAR HGB CONC 31.9 g/dL (33.2-36.2); MEAN CORPUSCULAR VOLUME 93.4 fL (81-97); MEAN PLATELET VOLUME 7.6 fL (7.4-10.4); MONOCYTES # (AUTO) 1.09 x10^3/uL (0.2-0.8); MONOCYTES % (AUTO) 6 % (2-9); NEUTROPHILS # (AUTO) 14.47 x10^3/uL (1.8-6.8); NEUTROPHILS % (AUTO) 82 % (42-75); PLATELET COUNT 321 x10^3/uL (130-400); RED BLOOD COUNT 3.92 x10^6/uL (4.38-5.82)
[2017-04-29 06:00] LABS: ANION GAP 4 mmol/L (5-15); CALCIUM 9.7 mg/dL (8.5-10.1); CREATININE 0.75 mg/dL (0.7-1.3)
[2017-04-29 06:01] LABS: ALANINE AMINOTRANSFERASE 109 U/L (12-78); ALBUMIN 2.3 g/dL (3.4-5.0); ALKALINE PHOSPHATASE 216 U/L (45-117); BILIRUBIN,TOTAL 0.5 mg/dL (0.2-1.0)
[2017-04-29 06:45] VITALS: BP 100/64
[2017-04-29] MEDS ORDERED: MAGNESIUM SULFATE PMX 2GM/50ML 50 ML IV ONE (07:30)
[2017-04-29] MEDS: FLUOXETINE 10 MG CAP PO SCH (09:22)
[2017-04-29] MEDS: SODIUM CHLORIDE FLUSH 10ML SYR IVF SCH ×2 (09:22→20:46)
[2017-04-29] MEDS: TAMSULOSIN 0.4 MG CAP.ER.24H PO SCH (09:22)
[2017-04-29] MEDS ORDERED: AMPICILLIN/SULBACTAM 3 GM in SODIUM CHLORIDE 0.9% 100 ML IV SCH (11:00)
[2017-04-29] MEDS ORDERED: FLUCONAZOLE 200 MG TABLET PO SCH (11:00)
[2017-04-29 15:41] VITALS: BP 110/68
[2017-04-29 18:40] VITALS: BP 101/64
[2017-04-29] MEDS: AMPICILLIN/SULBACTAM 3 GM in SODIUM CHLORIDE 0.9% 100 ML IV SCH (19:27)
[2017-04-29] MEDS: SIMVASTATIN 40 MG TABLET PO SCH (20:46)
[2017-04-30] MEDS: AMPICILLIN/SULBACTAM 3 GM in SODIUM CHLORIDE 0.9% 100 ML IV SCH ×4 (01:25→19:25)
[2017-04-30 01:39] VITALS: BP 96/60
[2017-04-30 04:59] LABS: BASOPHILS # (AUTO) 0.01 x10^3/uL (0-0.1); BASOPHILS % (AUTO) 0 % (0-1); EOSINOPHILS # (AUTO) 1.23 x10^3/uL (0-0.4); EOSINOPHILS % (AUTO) 9 % (1-7); LYMPHOCYTES # (AUTO) 2.08 x10^3/uL (1-3.4); LYMPHOCYTES % (AUTO) 15 % (22-44); MD NO; MEAN CORPUSCULAR HGB CONC 31.3 g/dL (33.2-36.2); MEAN CORPUSCULAR VOLUME 92.6 fL (81-97); MEAN PLATELET VOLUME 7.3 fL (7.4-10.4); MONOCYTES # (AUTO) 1.22 x10^3/uL (0.2-0.8); MONOCYTES % (AUTO) 9 % (2-9); NEUTROPHILS # (AUTO) 9.12 x10^3/uL (1.8-6.8); NEUTROPHILS % (AUTO) 67 % (42-75); PLATELET COUNT 271 x10^3/uL (130-400); RED BLOOD COUNT 3.69 x10^6/uL (4.38-5.82); RED CELL DISTRIBUTION WIDTH 17.2 % (9.4-14.8)
[2017-04-30 05:03] LABS: ANION GAP 0 mmol/L (5-15); CALCIUM 8.8 mg/dL (8.5-10.1); CHLORIDE 97 mmol/L (98-107)
[2017-04-30 05:07] LABS: ALANINE AMINOTRANSFERASE 77 U/L (12-78); ALKALINE PHOSPHATASE 179 U/L (45-117); BILIRUBIN,TOTAL 0.5 mg/dL (0.2-1.0); CREATININE 0.75 mg/dL (0.7-1.3); TOTAL PROTEIN 6.5 g/dL (6.4-8.2)
[2017-04-30 06:24] VITALS: BP 99/63
[2017-04-30] MEDS: HYDROcodone/APAP 5/325 TABLET PO PRN ×2 (07:39→13:21)
[2017-04-30] MEDS: FLUOXETINE 10 MG CAP PO SCH (10:53)
[2017-04-30] MEDS: FLUCONAZOLE 200 MG TABLET PO SCH (10:54)
[2017-04-30] MEDS: SODIUM CHLORIDE FLUSH 10ML SYR IVF SCH ×2 (10:54→21:22)
[2017-04-30] MEDS: TAMSULOSIN 0.4 MG CAP.ER.24H PO SCH (10:54)
[2017-04-30 13:32] VITALS: BP 105/68
[2017-04-30 20:19] VITALS: BP 102/64
[2017-04-30] MEDS: ARTIFICIAL TEARS 15 DROP/ML BOTTLE EACHEYE SCH (21:20)
[2017-04-30] MEDS: SIMVASTATIN 40 MG TABLET PO SCH (21:21)
[2017-05-01] MEDS: AMPICILLIN/SULBACTAM 3 GM in SODIUM CHLORIDE 0.9% 100 ML IV SCH ×4 (01:05→20:12)
[2017-05-01 01:35] VITALS: BP 101/69
[2017-05-01 05:48] LABS: BASOPHILS # (AUTO) 0.04 x10^3/uL (0-0.1); BASOPHILS % (AUTO) 0 % (0-1); EOSINOPHILS # (AUTO) 1.49 x10^3/uL (0-0.4); EOSINOPHILS % (AUTO) 13 % (1-7); LYMPHOCYTES # (AUTO) 1.85 x10^3/uL (1-3.4); LYMPHOCYTES % (AUTO) 16 % (22-44); MD NO; MEAN CORPUSCULAR HEMOGLOBIN 29.2 pg (27.5-34.5); MEAN CORPUSCULAR HGB CONC 31.3 g/dL (33.2-36.2); MEAN CORPUSCULAR VOLUME 93.4 fL (81-97); MEAN PLATELET VOLUME 7.6 fL (7.4-10.4); MONOCYTES # (AUTO) 1.34 x10^3/uL (0.2-0.8); MONOCYTES % (AUTO) 11 % (2-9); NEUTROPHILS # (AUTO) 7.17 x10^3/uL (1.8-6.8); NEUTROPHILS % (AUTO) 60 % (42-75); PLATELET COUNT 264 x10^3/uL (130-400); RED BLOOD COUNT 3.62 x10^6/uL (4.38-5.82); RED CELL DISTRIBUTION WIDTH 16.7 % (9.4-14.8)
[2017-05-01 05:56] LABS: ANION GAP 4 mmol/L (5-15); CALCIUM 9.1 mg/dL (8.5-10.1); CHLORIDE 97 mmol/L (98-107)
[2017-05-01 06:01] LABS: ALANINE AMINOTRANSFERASE 59 U/L (12-78); ALKALINE PHOSPHATASE 188 U/L (45-117); BILIRUBIN,TOTAL 0.5 mg/dL (0.2-1.0); CREATININE 0.59 mg/dL (0.7-1.3); TOTAL PROTEIN 6.3 g/dL (6.4-8.2)
[2017-05-01] MEDS: FLUCONAZOLE 200 MG TABLET PO SCH (08:23)
[2017-05-01] MEDS: FLUOXETINE 10 MG CAP PO SCH (08:23)
[2017-05-01] MEDS: TAMSULOSIN 0.4 MG CAP.ER.24H PO SCH (08:23)
[2017-05-01] MEDS: SODIUM CHLORIDE FLUSH 10ML SYR IVF SCH ×2 (08:24→20:12)
[2017-05-01 08:40] VITALS: BP 99/61
[2017-05-01 12:32] VITALS: BP 102/61
[2017-05-01] MEDS: HYDROcodone/APAP 5/325 TABLET PO PRN (14:26)
[2017-05-01 20:00] VITALS: BP 104/61
[2017-05-01] MEDS: SIMVASTATIN 40 MG TABLET PO SCH (20:18)
[2017-05-01] MEDS: ARTIFICIAL TEARS 15 DROP/ML BOTTLE EACHEYE SCH (20:18)
[2017-05-02 00:35] VITALS: BP 109/68
[2017-05-02] MEDS: AMPICILLIN/SULBACTAM 3 GM in SODIUM CHLORIDE 0.9% 100 ML IV SCH ×4 (01:56→22:18)
[2017-05-02] MEDS: HYDROcodone/APAP 5/325 TABLET PO PRN ×4 (03:24→18:18)
[2017-05-02 05:35] LABS: BASOPHILS # (AUTO) 0.02 x10^3/uL (0-0.1); BASOPHILS % (AUTO) 0 % (0-1); EOSINOPHILS # (AUTO) 1.16 x10^3/uL (0-0.4); EOSINOPHILS % (AUTO) 8 % (1-7); LYMPHOCYTES # (AUTO) 1.66 x10^3/uL (1-3.4); LYMPHOCYTES % (AUTO) 12 % (22-44); MD NO; MEAN CORPUSCULAR HEMOGLOBIN 29.7 pg (27.5-34.5); MEAN CORPUSCULAR HGB CONC 31.5 g/dL (33.2-36.2); MEAN CORPUSCULAR VOLUME 94.2 fL (81-97); MEAN PLATELET VOLUME 7.3 fL (7.4-10.4); MONOCYTES # (AUTO) 1.15 x10^3/uL (0.2-0.8); MONOCYTES % (AUTO) 8 % (2-9); NEUTROPHILS % (AUTO) 72 % (42-75); PLATELET COUNT 306 x10^3/uL (130-400); RED BLOOD COUNT 3.57 x10^6/uL (4.38-5.82); RED CELL DISTRIBUTION WIDTH 16.4 % (9.4-14.8)
[2017-05-02 05:47] LABS: CHLORIDE 95 mmol/L (98-107)
[2017-05-02 05:55] LABS: ALANINE AMINOTRANSFERASE 45 U/L (12-78); ALKALINE PHOSPHATASE 186 U/L (45-117); ANION GAP 4 mmol/L (5-15); BILIRUBIN,TOTAL 0.4 mg/dL (0.2-1.0); CALCIUM 9.1 mg/dL (8.5-10.1); CREATININE 0.56 mg/dL (0.7-1.3); TOTAL PROTEIN 6.4 g/dL (6.4-8.2)
[2017-05-02 06:37] VITALS: BP 95/59
[2017-05-02] MEDS: FLUCONAZOLE 200 MG TABLET PO SCH (09:54)
[2017-05-02] MEDS: FLUOXETINE 10 MG CAP PO SCH (09:54)
[2017-05-02] MEDS: SODIUM CHLORIDE FLUSH 10ML SYR IVF SCH ×2 (09:54→22:18)
[2017-05-02] MEDS: TAMSULOSIN 0.4 MG CAP.ER.24H PO SCH (09:54)
[2017-05-02] MEDS: ARTIFICIAL TEARS 15 DROP/ML BOTTLE EACHEYE SCH (09:56)
[2017-05-02 10:00] VITALS: BP 108/65
[2017-05-02 12:07] VITALS: BP 103/63
[2017-05-02 12:45] VITALS: BP 158/81
[2017-05-02] MEDS: ENOXAPARIN 40 MG/0.4 ML SQ SCH (12:48)
[2017-05-02 19:04] VITALS: BP 106/66
[2017-05-02] MEDS: SIMVASTATIN 40 MG TABLET PO SCH (22:18)
[2017-05-03 01:12] VITALS: BP 101/62
[2017-05-03] MEDS: AMPICILLIN/SULBACTAM 3 GM in SODIUM CHLORIDE 0.9% 100 ML IV SCH ×4 (03:53→23:31)
[2017-05-03] MEDS: HYDROcodone/APAP 5/325 TABLET PO PRN ×3 (03:59→17:42)
[2017-05-03 05:36] LABS: BASOPHILS # (AUTO) 0.03 x10^3/uL (0-0.1); BASOPHILS % (AUTO) 0 % (0-1); EOSINOPHILS # (AUTO) 1.24 x10^3/uL (0-0.4); EOSINOPHILS % (AUTO) 10 % (1-7); LYMPHOCYTES # (AUTO) 1.85 x10^3/uL (1-3.4); LYMPHOCYTES % (AUTO) 15 % (22-44); MD NO; MEAN CORPUSCULAR HEMOGLOBIN 29.1 pg (27.5-34.5); MEAN CORPUSCULAR HGB CONC 31.4 g/dL (33.2-36.2); MEAN CORPUSCULAR VOLUME 92.9 fL (81-97); MEAN PLATELET VOLUME 7.1 fL (7.4-10.4); MONOCYTES # (AUTO) 1.04 x10^3/uL (0.2-0.8); MONOCYTES % (AUTO) 8 % (2-9); NEUTROPHILS # (AUTO) 8.26 x10^3/uL (1.8-6.8); NEUTROPHILS % (AUTO) 67 % (42-75); PLATELET COUNT 307 x10^3/uL (130-400); RED BLOOD COUNT 3.54 x10^6/uL (4.38-5.82); RED CELL DISTRIBUTION WIDTH 16.1 % (9.4-14.8)
[2017-05-03 07:06] VITALS: BP 92/55
[2017-05-03] MEDS: TAMSULOSIN 0.4 MG CAP.ER.24H PO SCH (08:04)
[2017-05-03] MEDS: FLUOXETINE 10 MG CAP PO SCH (08:04)
[2017-05-03] MEDS: FLUCONAZOLE 200 MG TABLET PO SCH (08:04)
[2017-05-03] MEDS: ARTIFICIAL TEARS 15 DROP/ML BOTTLE EACHEYE SCH (08:07)
[2017-05-03] MEDS: SODIUM CHLORIDE FLUSH 10ML SYR IVF SCH ×2 (08:08→20:55)
[2017-05-03 13:00] VITALS: BP 112/63
[2017-05-03] MEDS: ENOXAPARIN 40 MG/0.4 ML SQ SCH (17:43)
[2017-05-03 19:06] VITALS: BP 118/69
[2017-05-03] MEDS: SIMVASTATIN 40 MG TABLET PO SCH (20:55)
[2017-05-04 01:02] VITALS: BP 110/64
[2017-05-04] MEDS: HYDROcodone/APAP 5/325 TABLET PO PRN ×3 (02:20→18:49)
[2017-05-04] MEDS: AMPICILLIN/SULBACTAM 3 GM in SODIUM CHLORIDE 0.9% 100 ML IV SCH ×3 (05:36→18:49)
[2017-05-04 05:38] LABS: BASOPHILS # (AUTO) 0.02 x10^3/uL (0-0.1); BASOPHILS % (AUTO) 0 % (0-1); EOSINOPHILS # (AUTO) 1.38 x10^3/uL (0-0.4); EOSINOPHILS % (AUTO) 11 % (1-7); LYMPHOCYTES # (AUTO) 2.32 x10^3/uL (1-3.4); LYMPHOCYTES % (AUTO) 19 % (22-44); MD NO; MEAN CORPUSCULAR HEMOGLOBIN 29.4 pg (27.5-34.5); MEAN CORPUSCULAR HGB CONC 31.5 g/dL (33.2-36.2); MEAN CORPUSCULAR VOLUME 93.6 fL (81-97); MEAN PLATELET VOLUME 7.1 fL (7.4-10.4); MONOCYTES # (AUTO) 1.09 x10^3/uL (0.2-0.8); MONOCYTES % (AUTO) 9 % (2-9); NEUTROPHILS # (AUTO) 7.27 x10^3/uL (1.8-6.8); NEUTROPHILS % (AUTO) 60 % (42-75); PLATELET COUNT 307 x10^3/uL (130-400); RED BLOOD COUNT 3.49 x10^6/uL (4.38-5.82)
[2017-05-04 07:24] VITALS: BP 114/69
[2017-05-04] MEDS: SODIUM CHLORIDE FLUSH 10ML SYR IVF SCH ×2 (10:37→20:10)
[2017-05-04] MEDS: FLUCONAZOLE 200 MG TABLET PO SCH (10:37)
[2017-05-04] MEDS: FLUOXETINE 10 MG CAP PO SCH (10:37)
[2017-05-04] MEDS: TAMSULOSIN 0.4 MG CAP.ER.24H PO SCH (10:37)
[2017-05-04 12:28] VITALS: BP 109/72
[2017-05-04] MEDS: ENOXAPARIN 40 MG/0.4 ML SQ SCH (18:49)
[2017-05-04 19:00] VITALS: BP 110/63
[2017-05-04] MEDS: SIMVASTATIN 40 MG TABLET PO SCH (20:11)
[2017-05-05 01:04] VITALS: BP 102/60
[2017-05-05] MEDS: AMPICILLIN/SULBACTAM 3 GM in SODIUM CHLORIDE 0.9% 100 ML IV SCH ×3 (01:06→18:28)
[2017-05-05 05:35] LABS: BASOPHILS # (AUTO) 0.04 x10^3/uL (0-0.1); BASOPHILS % (AUTO) 0 % (0-1); EOSINOPHILS # (AUTO) 1.33 x10^3/uL (0-0.4); EOSINOPHILS % (AUTO) 11 % (1-7); LYMPHOCYTES # (AUTO) 2.43 x10^3/uL (1-3.4); LYMPHOCYTES % (AUTO) 21 % (22-44); MD NO; MEAN CORPUSCULAR HEMOGLOBIN 29.2 pg (27.5-34.5); MEAN CORPUSCULAR HGB CONC 31.4 g/dL (33.2-36.2); MEAN PLATELET VOLUME 6.9 fL (7.4-10.4); MONOCYTES # (AUTO) 0.98 x10^3/uL (0.2-0.8); MONOCYTES % (AUTO) 8 % (2-9); NEUTROPHILS # (AUTO) 7.03 x10^3/uL (1.8-6.8); NEUTROPHILS % (AUTO) 60 % (42-75); PLATELET COUNT 321 x10^3/uL (130-400); RED BLOOD COUNT 3.41 x10^6/uL (4.38-5.82); RED CELL DISTRIBUTION WIDTH 16.7 % (9.4-14.8)
[2017-05-05 08:00] VITALS: BP 113/57
[2017-05-05] MEDS: HYDROcodone/APAP 5/325 TABLET PO PRN ×3 (08:06→19:39)
[2017-05-05] MEDS: FLUCONAZOLE 200 MG TABLET PO SCH (08:06)
[2017-05-05] MEDS: SODIUM CHLORIDE FLUSH 10ML SYR IVF SCH ×2 (08:06→21:00)
[2017-05-05] MEDS: TAMSULOSIN 0.4 MG CAP.ER.24H PO SCH (08:07)
[2017-05-05] MEDS: FLUOXETINE 10 MG CAP PO SCH (08:07)
[2017-05-05 13:05] VITALS: BP 111/68
[2017-05-05] MEDS: ENOXAPARIN 40 MG/0.4 ML SQ SCH (18:28)
[2017-05-05 18:56] VITALS: BP 131/71
[2017-05-05] MEDS: SIMVASTATIN 40 MG TABLET PO SCH (21:18)
[2017-05-06] MEDS: AMPICILLIN/SULBACTAM 3 GM in SODIUM CHLORIDE 0.9% 100 ML IV SCH (00:07)
[2017-05-06 00:23] VITALS: BP 108/55
[2017-05-06 05:41] LABS: BASOPHILS # (AUTO) 0.05 x10^3/uL (0-0.1); BASOPHILS % (AUTO) 1 % (0-1); EOSINOPHILS # (AUTO) 1.66 x10^3/uL (0-0.4); EOSINOPHILS % (AUTO) 14 % (1-7); LYMPHOCYTES # (AUTO) 2.57 x10^3/uL (1-3.4); LYMPHOCYTES % (AUTO) 22 % (22-44); MD NO; MEAN CORPUSCULAR HEMOGLOBIN 29.6 pg (27.5-34.5); MEAN CORPUSCULAR HGB CONC 31.8 g/dL (33.2-36.2); MEAN CORPUSCULAR VOLUME 92.9 fL (81-97); MONOCYTES # (AUTO) 1.03 x10^3/uL (0.2-0.8); MONOCYTES % (AUTO) 9 % (2-9); NEUTROPHILS # (AUTO) 6.39 x10^3/uL (1.8-6.8); NEUTROPHILS % (AUTO) 55 % (42-75); PLATELET COUNT 328 x10^3/uL (130-400); RED BLOOD COUNT 3.47 x10^6/uL (4.38-5.82); RED CELL DISTRIBUTION WIDTH 16.4 % (9.4-14.8)
[2017-05-06 07:25] VITALS: BP 129/72
[2017-05-06] MEDS: SODIUM CHLORIDE FLUSH 10ML SYR IVF SCH ×2 (09:00→21:02)
[2017-05-06] MEDS: FLUOXETINE 10 MG CAP PO SCH (09:34)
[2017-05-06] MEDS: HYDROcodone/APAP 5/325 TABLET PO PRN (09:34)
[2017-05-06] MEDS: TAMSULOSIN 0.4 MG CAP.ER.24H PO SCH (09:34)
[2017-05-06 13:20] VITALS: BP 116/67
[2017-05-06 14:00] VITALS: BP 107/58
[2017-05-06] MEDS: ENOXAPARIN 40 MG/0.4 ML SQ SCH (17:19)
[2017-05-06 19:10] VITALS: BP 151/77
[2017-05-06] MEDS: SIMVASTATIN 40 MG TABLET PO SCH (21:02)
[2017-05-07 01:04] VITALS: BP 129/76
[2017-05-07 05:17] LABS: BASOPHILS # (AUTO) 0.06 x10^3/uL (0-0.1); BASOPHILS % (AUTO) 0 % (0-1); EOSINOPHILS # (AUTO) 1.51 x10^3/uL (0-0.4); EOSINOPHILS % (AUTO) 12 % (1-7); LYMPHOCYTES # (AUTO) 2.44 x10^3/uL (1-3.4); LYMPHOCYTES % (AUTO) 19 % (22-44); MD NO; MEAN CORPUSCULAR HEMOGLOBIN 28.7 pg (27.5-34.5); MEAN CORPUSCULAR HGB CONC 31.1 g/dL (33.2-36.2); MEAN CORPUSCULAR VOLUME 92.3 fL (81-97); MONOCYTES # (AUTO) 0.95 x10^3/uL (0.2-0.8); MONOCYTES % (AUTO) 7 % (2-9); NEUTROPHILS # (AUTO) 7.99 x10^3/uL (1.8-6.8); NEUTROPHILS % (AUTO) 62 % (42-75); PLATELET COUNT 327 x10^3/uL (130-400); RED BLOOD COUNT 3.48 x10^6/uL (4.38-5.82); RED CELL DISTRIBUTION WIDTH 16.5 % (9.4-14.8)
[2017-05-07 06:32] VITALS: BP 102/59
[2017-05-07] MEDS: FLUOXETINE 10 MG CAP PO SCH (09:10)
[2017-05-07] MEDS: TAMSULOSIN 0.4 MG CAP.ER.24H PO SCH (09:10)
[2017-05-07] MEDS: ARTIFICIAL TEARS 15 DROP/ML BOTTLE EACHEYE SCH (09:11)
[2017-05-07] MEDS: SODIUM CHLORIDE FLUSH 10ML SYR IVF SCH ×2 (09:11→19:45)
[2017-05-07 12:20] VITALS: BP 115/68
[2017-05-07 12:58] VITALS: BP 115/68
[2017-05-07] MEDS: ENOXAPARIN 40 MG/0.4 ML SQ SCH (18:03)
[2017-05-07 19:10] VITALS: BP 142/72
[2017-05-07] MEDS: SIMVASTATIN 40 MG TABLET PO SCH (19:45)
[2017-05-07] MEDS: HYDROcodone/APAP 5/325 TABLET PO PRN (19:45)
[2017-05-08 01:09] VITALS: BP 103/64
[2017-05-08 05:39] LABS: BASOPHILS # (AUTO) 0.06 x10^3/uL (0-0.1); BASOPHILS % (AUTO) 1 % (0-1); EOSINOPHILS # (AUTO) 1.42 x10^3/uL (0-0.4); EOSINOPHILS % (AUTO) 11 % (1-7); LYMPHOCYTES # (AUTO) 3.19 x10^3/uL (1-3.4); LYMPHOCYTES % (AUTO) 24 % (22-44); MD NO; MEAN CORPUSCULAR HEMOGLOBIN 29.7 pg (27.5-34.5); MEAN CORPUSCULAR HGB CONC 32.2 g/dL (33.2-36.2); MEAN CORPUSCULAR VOLUME 92.1 fL (81-97); MEAN PLATELET VOLUME 7.2 fL (7.4-10.4); MONOCYTES % (AUTO) 8 % (2-9); NEUTROPHILS % (AUTO) 57 % (42-75); PLATELET COUNT 365 x10^3/uL (130-400); RED CELL DISTRIBUTION WIDTH 16.9 % (9.4-14.8)
[2017-05-08 06:40] VITALS: BP 109/67
[2017-05-08] MEDS: SODIUM CHLORIDE FLUSH 10ML SYR IVF SCH ×2 (09:00→20:16)
[2017-05-08] MEDS: TAMSULOSIN 0.4 MG CAP.ER.24H PO SCH (09:17)
[2017-05-08] MEDS: FLUOXETINE 10 MG CAP PO SCH (09:17)
[2017-05-08] MEDS: ARTIFICIAL TEARS 15 DROP/ML BOTTLE EACHEYE SCH ×2 (09:20→20:18)
[2017-05-08 13:18] VITALS: BP 107/69
[2017-05-08] MEDS: ENOXAPARIN 40 MG/0.4 ML SQ SCH (17:51)
[2017-05-08 19:45] VITALS: BP 112/73
[2017-05-08] MEDS: SIMVASTATIN 40 MG TABLET PO SCH (20:16)
[2017-05-09 02:02] VITALS: BP 128/72
[2017-05-09 05:38] LABS: CREATININE 0.66 mg/dL (0.7-1.3)
[2017-05-09 05:39] LABS: BASOPHILS % (AUTO) 1 % (0-1); EOSINOPHILS # (AUTO) 1.57 x10^3/uL (0-0.4); EOSINOPHILS % (AUTO) 10 % (1-7); LYMPHOCYTES # (AUTO) 3.02 x10^3/uL (1-3.4); LYMPHOCYTES % (AUTO) 19 % (22-44); MD NO; MEAN CORPUSCULAR HEMOGLOBIN 28.8 pg (27.5-34.5); MEAN CORPUSCULAR HGB CONC 31.3 g/dL (33.2-36.2); MEAN CORPUSCULAR VOLUME 91.9 fL (81-97); MEAN PLATELET VOLUME 7.2 fL (7.4-10.4); MONOCYTES # (AUTO) 0.77 x10^3/uL (0.2-0.8); MONOCYTES % (AUTO) 5 % (2-9); NEUTROPHILS # (AUTO) 10.44 x10^3/uL (1.8-6.8); NEUTROPHILS % (AUTO) 66 % (42-75); PLATELET COUNT 391 x10^3/uL (130-400); RED BLOOD COUNT 3.77 x10^6/uL (4.38-5.82); RED CELL DISTRIBUTION WIDTH 16.8 % (9.4-14.8)
[2017-05-09 06:50] VITALS: BP 121/71
[2017-05-09] MEDS: SODIUM CHLORIDE FLUSH 10ML SYR IVF SCH ×2 (07:54→21:22)
[2017-05-09] MEDS: TAMSULOSIN 0.4 MG CAP.ER.24H PO SCH (07:54)
[2017-05-09] MEDS: FLUOXETINE 10 MG CAP PO SCH (07:54)
[2017-05-09] MEDS: ARTIFICIAL TEARS 15 DROP/ML BOTTLE EACHEYE SCH (07:55)
[2017-05-09 12:37] VITALS: BP 127/78
[2017-05-09] MEDS ORDERED: FUROSEMIDE 40 MG/4 ML IV ONE (16:30)
[2017-05-09] MEDS ORDERED: POTASSIUM CHLORIDE 20 MEQ TAB.ER.PRT PO ONE (16:30)
[2017-05-09] MEDS: ENOXAPARIN 40 MG/0.4 ML SQ SCH (18:13)
[2017-05-09 19:02] VITALS: BP 116/69
[2017-05-09 19:03] VITALS: BP 139/72
[2017-05-09] MEDS: SIMVASTATIN 40 MG TABLET PO SCH (21:21)
[2017-05-10 01:21] VITALS: BP 126/71
[2017-05-10 04:52] LABS: BASOPHILS # (AUTO) 0.07 x10^3/uL (0-0.1); BASOPHILS % (AUTO) 0 % (0-1); EOSINOPHILS # (AUTO) 1.68 x10^3/uL (0-0.4); EOSINOPHILS % (AUTO) 10 % (1-7); LYMPHOCYTES # (AUTO) 3.13 x10^3/uL (1-3.4); LYMPHOCYTES % (AUTO) 19 % (22-44); MD NO; MEAN CORPUSCULAR HEMOGLOBIN 29.2 pg (27.5-34.5); MEAN CORPUSCULAR VOLUME 91.4 fL (81-97); MEAN PLATELET VOLUME 7.1 fL (7.4-10.4); MONOCYTES # (AUTO) 1.16 x10^3/uL (0.2-0.8); MONOCYTES % (AUTO) 7 % (2-9); NEUTROPHILS % (AUTO) 64 % (42-75); PLATELET COUNT 383 x10^3/uL (130-400); RED BLOOD COUNT 3.77 x10^6/uL (4.38-5.82); RED CELL DISTRIBUTION WIDTH 17.2 % (9.4-14.8)
[2017-05-10 05:06] LABS: ALANINE AMINOTRANSFERASE 81 U/L (12-78); ALBUMIN 2.2 g/dL (3.4-5.0); ANION GAP 4 mmol/L (5-15); CALCIUM 9.4 mg/dL (8.5-10.1); CHLORIDE 99 mmol/L (98-107)
[2017-05-10 05:08] LABS: ALKALINE PHOSPHATASE 185 U/L (45-117); BILIRUBIN,TOTAL 0.2 mg/dL (0.2-1.0); TOTAL PROTEIN 6.7 g/dL (6.4-8.2)
[2017-05-10 06:30] VITALS: BP 111/69
[2017-05-10 06:34] LABS: CULTURE INDICATED? YES; MICROSCOPIC INDICATED
[2017-05-10] MEDS: ARTIFICIAL TEARS 15 DROP/ML BOTTLE EACHEYE SCH ×2 (09:26→19:34)
[2017-05-10] MEDS: FLUOXETINE 10 MG CAP PO SCH (09:26)
[2017-05-10] MEDS: TAMSULOSIN 0.4 MG CAP.ER.24H PO SCH (09:26)
[2017-05-10] MEDS: SODIUM CHLORIDE FLUSH 10ML SYR IVF SCH ×2 (09:26→19:34)
[2017-05-10 13:46] VITALS: BP 112/67
[2017-05-10] MEDS: ENOXAPARIN 40 MG/0.4 ML SQ SCH (17:37)
[2017-05-10 19:05] VITALS: BP 120/73
[2017-05-10] MEDS: HYDROcodone/APAP 5/325 TABLET PO PRN (19:33)
[2017-05-10] MEDS: SIMVASTATIN 40 MG TABLET PO SCH (19:34)
[2017-05-11 01:11] VITALS: BP 115/69
[2017-05-11 06:32] VITALS: BP 113/71
[2017-05-11] MEDS: HYDROcodone/APAP 5/325 TABLET PO PRN ×3 (08:32→22:06)
[2017-05-11] MEDS: FLUOXETINE 10 MG CAP PO SCH (08:32)
[2017-05-11] MEDS: TAMSULOSIN 0.4 MG CAP.ER.24H PO SCH (08:32)
[2017-05-11] MEDS: SODIUM CHLORIDE FLUSH 10ML SYR IVF SCH ×2 (08:37→19:14)
[2017-05-11 12:00] VITALS: BP 100/64
[2017-05-11] MEDS: ENOXAPARIN 40 MG/0.4 ML SQ SCH (17:02)
[2017-05-11 18:44] VITALS: BP 148/75
[2017-05-11] MEDS: SIMVASTATIN 40 MG TABLET PO SCH (19:42)
[2017-05-12 00:06] LABS: MICROSCOPIC INDICATED
[2017-05-12 00:07] LABS: CULTURE INDICATED? YES
[2017-05-12 01:48] VITALS: BP 125/69
[2017-05-12] MEDS: HYDROcodone/APAP 5/325 TABLET PO PRN (05:34)
[2017-05-12 05:35] LABS: CREATININE 0.73 mg/dL (0.7-1.3)
[2017-05-12 06:45] VITALS: BP 98/50
[2017-05-12] MEDS: TAMSULOSIN 0.4 MG CAP.ER.24H PO SCH ×2 (08:24→20:53)
[2017-05-12] MEDS: FLUOXETINE 10 MG CAP PO SCH (08:25)
[2017-05-12] MEDS: SODIUM CHLORIDE FLUSH 10ML SYR IVF SCH ×2 (09:00→20:53)
[2017-05-12] MEDS: LINEZOLID 600 MG TABLET PO SCH ×2 (12:34→23:50)
[2017-05-12] MEDS: ARTIFICIAL TEARS 15 DROP/ML BOTTLE EACHEYE SCH (12:55)
[2017-05-12 14:00] VITALS: BP 113/65
[2017-05-12] MEDS: ENOXAPARIN 40 MG/0.4 ML SQ SCH (16:12)
[2017-05-12 19:34] VITALS: BP 102/62
[2017-05-12] MEDS: SIMVASTATIN 40 MG TABLET PO SCH (20:53)
[2017-05-13 01:30] VITALS: BP 129/70
[2017-05-13] MEDS: HYDROcodone/APAP 5/325 TABLET PO PRN (02:04)
[2017-05-13 05:37] LABS: BASOPHILS # (AUTO) 0.05 x10^3/uL (0-0.1); BASOPHILS % (AUTO) 0 % (0-1); EOSINOPHILS # (AUTO) 1.05 x10^3/uL (0-0.4); EOSINOPHILS % (AUTO) 7 % (1-7); LYMPHOCYTES # (AUTO) 2.49 x10^3/uL (1-3.4); LYMPHOCYTES % (AUTO) 16 % (22-44); MD NO; MEAN CORPUSCULAR HEMOGLOBIN 29.1 pg (27.5-34.5); MEAN CORPUSCULAR VOLUME 91.1 fL (81-97); MONOCYTES # (AUTO) 1.04 x10^3/uL (0.2-0.8); MONOCYTES % (AUTO) 7 % (2-9); NEUTROPHILS # (AUTO) 10.55 x10^3/uL (1.8-6.8); NEUTROPHILS % (AUTO) 70 % (42-75); PLATELET COUNT 402 x10^3/uL (130-400); RED BLOOD COUNT 3.48 x10^6/uL (4.38-5.82); RED CELL DISTRIBUTION WIDTH 16.9 % (9.4-14.8)
[2017-05-13 05:48] LABS: ANION GAP 3 mmol/L (5-15); CHLORIDE 98 mmol/L (98-107); CREATININE 0.71 mg/dL (0.7-1.3)
[2017-05-13 08:00] VITALS: BP 110/62
[2017-05-13] MEDS: FLUOXETINE 10 MG CAP PO SCH (08:34)
[2017-05-13] MEDS: TAMSULOSIN 0.4 MG CAP.ER.24H PO SCH ×2 (08:34→20:55)
[2017-05-13] MEDS: SODIUM CHLORIDE FLUSH 10ML SYR IVF SCH ×2 (08:35→20:55)
[2017-05-13] MEDS ORDERED: LINEZOLID 600 MG TABLET ONE (11:26)
[2017-05-13] MEDS: LINEZOLID 600 MG TABLET PO SCH ×2 (11:29→20:54)
[2017-05-13 12:32] VITALS: BP 107/62
[2017-05-13] MEDS: ENOXAPARIN 40 MG/0.4 ML SQ SCH (16:39)
[2017-05-13 19:26] VITALS: BP 107/63
[2017-05-13] MEDS: SIMVASTATIN 40 MG TABLET PO SCH (20:55)
[2017-05-13] MEDS ORDERED: LINEZOLID 600 MG TABLET PO SCH (23:00)
[2017-05-14 01:30] VITALS: BP 117/67
[2017-05-14 05:59] LABS: BASOPHILS # (AUTO) 0.07 x10^3/uL (0-0.1); BASOPHILS % (AUTO) 1 % (0-1); EOSINOPHILS # (AUTO) 0.98 x10^3/uL (0-0.4); EOSINOPHILS % (AUTO) 7 % (1-7); LYMPHOCYTES # (AUTO) 2.61 x10^3/uL (1-3.4); LYMPHOCYTES % (AUTO) 19 % (22-44); MD NO; MEAN CORPUSCULAR HEMOGLOBIN 28.6 pg (27.5-34.5); MEAN CORPUSCULAR HGB CONC 31.5 g/dL (33.2-36.2); MEAN PLATELET VOLUME 7.1 fL (7.4-10.4); MONOCYTES # (AUTO) 1.04 x10^3/uL (0.2-0.8); MONOCYTES % (AUTO) 7 % (2-9); NEUTROPHILS # (AUTO) 9.37 x10^3/uL (1.8-6.8); NEUTROPHILS % (AUTO) 67 % (42-75); PLATELET COUNT 433 x10^3/uL (130-400); RED BLOOD COUNT 3.73 x10^6/uL (4.38-5.82)
[2017-05-14 06:06] LABS: CHLORIDE 101 mmol/L (98-107)
[2017-05-14 06:13] LABS: ALANINE AMINOTRANSFERASE 60 U/L (12-78); ALBUMIN 2.2 g/dL (3.4-5.0); ALKALINE PHOSPHATASE 150 U/L (45-117); ANION GAP 5 mmol/L (5-15); BILIRUBIN,TOTAL 0.2 mg/dL (0.2-1.0); CALCIUM 9.4 mg/dL (8.5-10.1); CREATININE 0.65 mg/dL (0.7-1.3); TOTAL PROTEIN 6.8 g/dL (6.4-8.2)
[2017-05-14 07:06] VITALS: BP 112/67
[2017-05-14] MEDS ORDERED: CEFTRIAXONE PMX 1GM/50ML 50 ML IV SCH (08:00)
[2017-05-14] MEDS ORDERED: FOSFOMYCIN 3 GM PACKET PO ONE (08:00)
[2017-05-14] MEDS: SODIUM CHLORIDE FLUSH 10ML SYR IVF SCH ×2 (09:47→20:46)
[2017-05-14] MEDS: FLUOXETINE 10 MG CAP PO SCH (09:47)
[2017-05-14] MEDS: TAMSULOSIN 0.4 MG CAP.ER.24H PO SCH ×2 (09:47→20:45)
[2017-05-14] MEDS: LINEZOLID 600 MG TABLET PO SCH ×2 (09:48→20:45)
[2017-05-14 14:24] VITALS: BP 109/67
[2017-05-14] MEDS: ENOXAPARIN 40 MG/0.4 ML SQ SCH (18:43)
[2017-05-14 20:00] VITALS: BP 148/80
[2017-05-14] MEDS: SIMVASTATIN 40 MG TABLET PO SCH (20:45)
[2017-05-15 01:48] VITALS: BP 103/65
[2017-05-15 05:44] LABS: CREATININE 0.68 mg/dL (0.7-1.3)
[2017-05-15 07:28] VITALS: BP 131/72
[2017-05-15] MEDS: TAMSULOSIN 0.4 MG CAP.ER.24H PO SCH ×2 (09:37→20:59)
[2017-05-15] MEDS: SODIUM CHLORIDE FLUSH 10ML SYR IVF SCH ×2 (09:37→20:59)
[2017-05-15] MEDS: FLUOXETINE 10 MG CAP PO SCH (09:37)
[2017-05-15] MEDS: LINEZOLID 600 MG TABLET PO SCH ×2 (09:37→20:59)
[2017-05-15 13:15] VITALS: BP 137/77
[2017-05-15] MEDS: ENOXAPARIN 40 MG/0.4 ML SQ SCH (17:22)
[2017-05-15 18:23] VITALS: BP 132/65
[2017-05-15] MEDS: SIMVASTATIN 40 MG TABLET PO SCH (20:59)
[2017-05-16 01:51] VITALS: BP 131/73
[2017-05-16 07:24] VITALS: BP 121/71
[2017-05-16] MEDS: SODIUM CHLORIDE FLUSH 10ML SYR IVF SCH ×2 (09:30→20:45)
[2017-05-16] MEDS: FLUOXETINE 10 MG CAP PO SCH (09:31)
[2017-05-16] MEDS: TAMSULOSIN 0.4 MG CAP.ER.24H PO SCH ×2 (09:31→20:45)
[2017-05-16] MEDS: LINEZOLID 600 MG TABLET PO SCH ×2 (09:31→20:45)
[2017-05-16 14:47] VITALS: BP 132/77
[2017-05-16] MEDS: ENOXAPARIN 40 MG/0.4 ML SQ SCH (18:10)
[2017-05-16 20:26] VITALS: BP 118/69
[2017-05-16] MEDS: SIMVASTATIN 40 MG TABLET PO SCH (20:45)
[2017-05-17 00:52] VITALS: BP 121/67
[2017-05-17] MEDS: HYDROcodone/APAP 5/325 TABLET PO PRN ×2 (03:37→11:17)
[2017-05-17 05:27] LABS: BASOPHILS # (AUTO) 0.09 x10^3/uL (0-0.1); BASOPHILS % (AUTO) 1 % (0-1); EOSINOPHILS # (AUTO) 0.95 x10^3/uL (0-0.4); EOSINOPHILS % (AUTO) 8 % (1-7); LYMPHOCYTES # (AUTO) 2.92 x10^3/uL (1-3.4); LYMPHOCYTES % (AUTO) 23 % (22-44); MD NO; MEAN CORPUSCULAR HEMOGLOBIN 28.8 pg (27.5-34.5); MEAN CORPUSCULAR HGB CONC 31.7 g/dL (33.2-36.2); MEAN PLATELET VOLUME 6.8 fL (7.4-10.4); MONOCYTES % (AUTO) 8 % (2-9); NEUTROPHILS # (AUTO) 7.63 x10^3/uL (1.8-6.8); NEUTROPHILS % (AUTO) 61 % (42-75); PLATELET COUNT 433 x10^3/uL (130-400); RED CELL DISTRIBUTION WIDTH 16.9 % (9.4-14.8)
[2017-05-17 05:41] LABS: ANION GAP 5 mmol/L (5-15); CALCIUM 8.4 mg/dL (8.5-10.1); CHLORIDE 102 mmol/L (98-107)
[2017-05-17 05:42] LABS: CREATININE 0.78 mg/dL (0.7-1.3)
[2017-05-17 08:39] VITALS: BP 136/79
[2017-05-17] MEDS: TAMSULOSIN 0.4 MG CAP.ER.24H PO SCH ×2 (11:02→21:10)
[2017-05-17] MEDS: FLUOXETINE 10 MG CAP PO SCH (11:02)
[2017-05-17] MEDS: SODIUM CHLORIDE FLUSH 10ML SYR IVF SCH ×2 (11:03→21:10)
[2017-05-17] MEDS: LINEZOLID 600 MG TABLET PO SCH ×2 (11:03→21:10)
[2017-05-17] MEDS: ENOXAPARIN 40 MG/0.4 ML SQ SCH (16:58)
[2017-05-17 18:23] VITALS: BP 113/65
[2017-05-17] MEDS: SIMVASTATIN 40 MG TABLET PO SCH (21:10)
[2017-05-18 01:46] VITALS: BP 112/69
[2017-05-18 08:33] VITALS: BP 112/67
[2017-05-18] MEDS: SODIUM CHLORIDE FLUSH 10ML SYR IVF SCH ×2 (09:00→20:55)
[2017-05-18] MEDS: TAMSULOSIN 0.4 MG CAP.ER.24H PO SCH ×2 (09:01→20:55)
[2017-05-18] MEDS: LINEZOLID 600 MG TABLET PO SCH ×2 (09:01→20:54)
[2017-05-18] MEDS: FLUOXETINE 10 MG CAP PO SCH (09:01)
[2017-05-18] MEDS: HYDROcodone/APAP 5/325 TABLET PO PRN ×2 (09:02→17:39)
[2017-05-18 15:02] VITALS: BP 138/79
[2017-05-18] MEDS: ENOXAPARIN 40 MG/0.4 ML SQ SCH (17:39)
[2017-05-18 18:44] VITALS: BP 118/71
[2017-05-18] MEDS: SIMVASTATIN 40 MG TABLET PO SCH (20:55)
[2017-05-19 00:15] VITALS: BP 105/61
[2017-05-19 07:36] VITALS: BP 120/60
[2017-05-19] MEDS: FLUOXETINE 10 MG CAP PO SCH (09:04)
[2017-05-19] MEDS: TAMSULOSIN 0.4 MG CAP.ER.24H PO SCH (09:04)
[2017-05-19] MEDS: HYDROcodone/APAP 5/325 TABLET PO PRN (09:04)
[2017-05-19] MEDS: SODIUM CHLORIDE FLUSH 10ML SYR IVF SCH (09:04)
[2017-05-19] MEDS ORDERED: HYDR-3240 PO (13:09)
[2017-05-19] MEDS ORDERED: TAMS-11 PO (13:09)
[2017-05-19] MEDS ORDERED: SIMV40TA3 PO (13:09)
[2017-05-19] MEDS ORDERED: FLUO10CA7 PO (13:09)
[2017-05-19 14:00] VITALS: BP 95/59
[2017-05-19] MEDS ORDERED: POTA20TA14 PO (16:18)
== END 2017-05-19 15:36 | disposition home or self-care (01) | DRG 853 ==
LOC: ED 16:28 → EDIP 16:30 → CCU 18:29 → 4NOR 01-23 08:43 → 4EST 01-28 17:02 → CCU 02-17 06:21 → 4EST 02-19 14:01 → 4NOR 03-25 13:06 → 3NE 03-26 00:12
PROVIDERS: ADMIT Internal Medicine; ATTEND Family Medicine
PROC: 5A1955Z Respiratory Ventilation, Greater than 96 Consecutive Hours (ICD-10-PCS; principal; 2017-01-15)
PROC: 0BH17EZ Insertion of Endotracheal Airway into Trachea, Via Natural or Artificial Opening (ICD-10-PCS; 2017-01-15)
PROC: 0T9B70Z Drainage of Bladder with Drainage Device, Via Natural or Artificial Opening (ICD-10-PCS; 2017-03-14)
PROC: 0F9430Z Drainage of Gallbladder with Drainage Device, Percutaneous Approach (ICD-10-PCS; 2017-03-15)
PROC: BF131ZZ Fluoroscopy of Gallbladder and Bile Ducts using Low Osmolar Contrast (ICD-10-PCS; 2017-04-24)
PROC: 0FT44ZZ Resection of Gallbladder, Percutaneous Endoscopic Approach (ICD-10-PCS; 2017-04-28)
DX: A41.9 Sepsis, unspecified organism (principal); J96.01 Acute respiratory failure with hypoxia; E43 Unspecified severe protein-calorie malnutrition; G62.81 Critical illness polyneuropathy; G92 Toxic encephalopathy; J10.08 Influenza due to other identified influenza virus with other specified pneumonia; J15.6 Pneumonia due to other Gram-negative bacteria; N17.0 Acute kidney failure with tubular necrosis; J81.1 Chronic pulmonary edema; Z99.11 Dependence on respirator [ventilator] status; J96.21 Acute and chronic respiratory failure with hypoxia; J96.22 Acute and chronic respiratory failure with hypercapnia; E66.2 Morbid (severe) obesity with alveolar hypoventilation; E87.1 Hypo-osmolality and hyponatremia; E87.2 Acidosis; Z68.41 Body mass index [BMI] 40.0-44.9, adult; N39.0 Urinary tract infection, site not specified; N13.8 Other obstructive and reflux uropathy; J98.11 Atelectasis; K80.12 Calculus of gallbladder with acute and chronic cholecystitis without obstruction; E11.65 Type 2 diabetes mellitus with hyperglycemia; D75.1 Secondary polycythemia; I48.91 Unspecified atrial fibrillation; D53.9 Nutritional anemia, unspecified; B95.2 Enterococcus as the cause of diseases classified elsewhere; E78.00 Pure hypercholesterolemia, unspecified; E78.5 Hyperlipidemia, unspecified; E83.39 Other disorders of phosphorus metabolism; J10.1 Influenza due to other identified influenza virus with other respiratory manifestations; J45.909 Unspecified asthma, uncomplicated; E83.42 Hypomagnesemia; E87.6 Hypokalemia; F43.21 Adjustment disorder with depressed mood; G47.33 Obstructive sleep apnea (adult) (pediatric); I11.9 Hypertensive heart disease without heart failure; Z90.49 Acquired absence of other specified parts of digestive tract; Z87.891 Personal history of nicotine dependence; Z79.899 Other long term (current) drug therapy; Z79.84 Long term (current) use of oral hypoglycemic drugs; T38.0X5A Adverse effect of glucocorticoids and synthetic analogues, initial encounter; R62.7 Adult failure to thrive; N40.1 Benign prostatic hyperplasia with lower urinary tract symptoms; Z16.21 Resistance to vancomycin; Z87.01 Personal history of pneumonia (recurrent); N31.9 Neuromuscular dysfunction of bladder, unspecified; N20.0 Calculus of kidney; K82.8 Other specified diseases of gallbladder; K72.90 Hepatic failure, unspecified without coma; Z68.37 Body mass index [BMI] 37.0-37.9, adult
CPT/HCPCS: 36415; 36600; 70450; 71010; 71045; 71250; 74177; 74230; 74300; 75989; 76700; 76705; 80048; 80053; 80202; 81001; 82040; 82140; 82172; 82247; 82272; 82533; 82565; 82607; 82746; 82803; 82805; 82962; 82977; 83010; 83036; 83516; 83605; 83690; 83735; 83880; 83883; 83935; 84100; 84145; 84300; 84439; 84443; 84460; 84478; 84481; 84484; 85014; 85018; 85025; 85610; 85651; 86038; 86140; 86160; 86225; 86235; 86255; 86256; 86376; 86431; 86704; 86706; 86708; 86790; 86803; 87040; 87070; 87075; 87077; 87081; 87086; 87106; 87186; 87205; 87324; 87340; 87400; 88304; 93005; 93306; 94002; 94003; 94150; 94640; 94660; 96361; 96374; 99156; 99157; C1729; C1894; J0171; J0295; J0456; J0696; J1450; J1650; J1815; J1940; J2250; J2405; J2543; J2704; J2710; J3010; J3370; J3480; J3490; J7620; Q9967; C1760; C1769; J0330; J1120; J1160; J2310; J2370; J2930; J3475; J7030; J7040; J7050; S0028; S0074